=== PATIENT | female | born 1970 | race Caucasian/White ===

== ENCOUNTER → 2018-02-12 10:45 | Outpatient (CLI) | payer MEDICAID, SELFPAY ==
[2018-02-12 12:07] LABS: Thyroid Stimulating Hormone 2.61 uIU/ml (0.358-3.740)
== END ==
PROVIDERS: Family Provider Physician Assistant; PCP Physician Assistant; Visit Provider Obstetrics & Gynecology
DX: L65.9 Nonscarring hair loss, unspecified (principal)
CPT/HCPCS: 36415; 84443

== ENCOUNTER → 2020-07-25 14:26 | Outpatient (CLI) | payer MEDICAID, SELFPAY ==
--- NOTE | 2020-07-25 14:28 | CA_ITS ---
APPROVED REPORT Bilateral Lower Extremity Venous Study for Clinical Operations Manager: CT Indications Lower Extremity Pain: pain and swelling Rest Pain: Left Vein Imaging CFV (R): compressive, spontaneous, phasic, augmentation SFJ (R): compressive, spontaneous, phasic, augmentation FEM (R): compressive, spontaneous, phasic, augmentation POP (R): compressive, spontaneous, phasic, augmentation DFV (R): compressive, spontaneous, phasic, augmentation PTV (R): compressive, spontaneous, phasic, augmentation GSV (R): compressive, spontaneous, phasic, augmentation SSV (R): compressive, spontaneous, phasic, augmentation Peroneals (R):compressive, spontaneous, phasic, augmentation GAS (R): compressive, spontaneous, phasic, augmentation Findings LLE negative for DVT/SVT Vessels compressible Non-vascularized cystic structure visualized in the left popliteal fossa. 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 Electronically signed by : Vasquez Talbert MD 07/25/2020 17:00:38
[2020-07-25 14:59] LABS: Basophils % 0.3 % (0.1-2.0); Eosinophils # 0.2 K/mm3 (0.0-0.4); Eosinophils % 1.5 % (0.1-12.0); Hematocrit 44.1 % (37.0-47.0); Hemoglobin 14.4 g/dL (12.2-16.2); Lymphocytes # 2.5 K/mm3 (0.7-4.5); Lymphocytes % 24.8 % (10-50); Mean Corpuscular HGB Conc 32.6 g/dL (31.8-35.4); Mean Corpuscular Hemoglobin 27.1 pg (27.0-31.2); Mean Corpuscular Volume 83.1 fl (81-99); Mean Platelet Volume 7.5 fl (7.4-10.4); Monocytes # 0.6 K/mm3 (0.1-1.0); Monocytes % 5.9 % (1.7-9.3); Neutrophils # 6.8 K/mm3 (1.8-7.8); Neutrophils % 67.6 % (37.0-80.0); Platelet Count 440 K/mm3 (142-424); Red Blood Count 5.31 M/mm3 (4.20-5.40); Red Cell Distribution Width 16.4 % (11.5-17.5); White Blood Count 10.1 K/mm3 (4.8-10.8)
[2020-07-25 15:24] LABS: Chloride 102 mmol/L (98-107); Sodium 140 mmol/L (136-145)
[2020-07-25 15:25] LABS: Potassium 3.9 mmoL/L (3.5-5.1)
[2020-07-25 15:27] LABS: Alanine Aminotransferase 30 U/L (12-78); Albumin Level 4.3 g/dl (3.5-5.0); Albumin/Globulin Ratio 1.5 (1.1-1.8); Alkaline Phosphatase 90 U/L (38-126); Anion Gap 13.9 mEq/L (5-15); Aspartate Amino Transferase 34 U/L (14-36); Bilirubin,Total 0.5 mg/dl (0.2-1.3); Blood Urea Nitrogen 10 mg/dl (7-17); Carbon Dioxide 28 mmol/L (22.0-30.0); Estimated Glomerular Filt Rate 106 ml/min (>60); GFR (African American) 128 ML/MIN (>60); Globulin 2.9 g/dL (1.3-3.2); Total Protein,Serum 7.2 g/dl (6.3-8.2)
[2020-07-25 15:28] LABS: Calcium 9.8 mg/dl (8.4-10.2); Glucose 112 mg/dl (74-100)
[2020-07-25 15:33] LABS: C-Reactive Protein 9.3 mg/L (0-4)
[2020-07-25 15:40] LABS: Erythrocyte Sedimentation Rate 35 mm/hr (0-20)
[2020-07-27 16:35] LABS: Anti-Centromere B Antibodies <0.2 AI (0.0-0.9); Anti-Jo-1 <0.2 AI (0.0-0.9); Anti-Smith Antibody <0.2 AI (0.0-0.9); Antichromatin Antibodies <0.2 AI (0.0-0.9); Antiscleroderma-70 Antibodies <0.2 AI (0.0-0.9); RNP Antibodies >8.0 AI (0.0-0.9); Sjogren's Anti-SS-A <0.2 AI (0.0-0.9); Sjogren's Anti-SS-B <0.2 AI (0.0-0.9)
[2020-07-28 18:14] LABS: Anti-DNA (DS) Ab Qn <1 IU/mL (0-9); RA Latex Turbid. <10.0 IU/mL (0.0-13.9)
[2020-07-28 18:18] LABS: Anti-Cyclic Citrullinated Pept 3 units (0-19)
== END ==
PROVIDERS: PCP Physician Assistant; Visit Provider Physician Assistant
DX: M79.605 Pain in left leg (principal); M79.89 Other specified soft tissue disorders; M25.50 Pain in unspecified joint
CPT/HCPCS: 36415; 80053; 85025; 85651; 86140; 86200; 86225; 86235; 86431; 86618; 93971

== ENCOUNTER 2021-06-18 18:53 | Emergency (ER) | payer MEDICAID, SELFPAY ==
[2021-06-18 19:45] VITALS: BP 120/91; PULSE 102; RESP 20; TEMP 36.6; O2SAT 98; BMI 43.1
--- NOTE | 2021-06-18 20:17 | HMH.EDUTC ---
[facility] [place] Clinical Impression: Right hip pain, Piriformis syndrome of right side Low back pain Qualifiers: Chronicity: acute Back pain laterality: right Sciatica presence: with sciatica Sciatica laterality: sciatica of right side Qualified Code(s): M54.41 - Lumbago with sciatica, right side Disposition: Home, Self-Care Condition on Discharge: Good Additional Instructions: Go home and rest. It would be best if you rested tomorrow too. No heavy lifting. No twisting. Take the oral medications as directed. The muscle relaxer (cyclobenzaprine) will make you drowsy, so don't drive or operate heavy machinery after taking it. Don't start the oral steroids (medrol dose pack) until tomorrow, since you had the shots in here today. Follow up with your regular doctor. GO TO THE ER FOR ANY WORSENING SYMPTOMS OR CONCERN, ESPECIALLY BOWEL OR BLADDER ISSUES, SADDLE AREA NUMBNESS, FEVER, ETC Prescriptions: Mupirocin [Bactroban 2% Ointment 22gm tube] 1 applicatio TP TID 7 Days #1 tube Transmission Status: Received by [facility] Cyclobenzaprine HCl [Cyclobenzaprine 10mg Tab] 10 mg PO BIDP PRN #30 tab PRN Reason: Muscle Spasm Transmission Status: Received by [facility] methylPREDNISolone [Medrol] 4 mg PO DIRECTED 6 Days #21 tab.ds.pk Transmission Status: Received by [facility] Referrals: Consuelo Wyatt PA [Primary Care Provider] - Time of Disposition: 20:44 Medical Decision Making - Medical Records Medical records reviewed: No: I reviewed the patient's medical records. - Boubacar Inquiry Pt receiving controlled substance: No Vital Signs: 06/18/21 19:45 06/18/21 20:45 Temperature 97.9 F 97.9 F Temperature Source Oral Pulse Rate 102 H Pulse Rate [Right Brachial] 102 H Respiratory Rate 20 20 Blood Pressure 120/91 H Blood Pressure [Right Arm] 120/91 H Blood Pressure Mean [Right Arm] 100 Blood Pressure Source [Right Arm] Automatic Cuff Blood Pressure Position [Right Arm] Sitting 02 Sat by Pulse Oximetry 98 Oxygen Delivery Method Room Air Orders (Tests/Meds): ED MEDICATIONS Discontinued Medications Generic Name Dose Route Start Last Admin Trade Name Jason PRN Reason Stop Dose Admin Ketorolac Tromethamine 60 mg 06/18/21 20:21 06/18/21 20:37 Ketorolac 60mg/2ml Vial IM 06/18/21 20:22 60 mg ONCE ONE Administration Methylprednisolone Sodium Succinate 125 mg 06/18/21 20:21 06/18/21 20:37 Methylprednisolone Sod Succ 125mg Vial IM 06/18/21 20:22 125 mg ONCE ONE Administration [facility] [place] - General Stated complaint: R hip and leg pain Time Seen by Provider: 06/18/21 20:19 Mode of Arrival: Ambulatory Source of Information: Patient Limitations: No Limitations Description of Symptoms (Recalled from Triage Doc. by RN): PATIENT C/O RIGHT HIP PAIN AND NUMBNESS THAT RADIATES FROM SIDE TO FRONT AND DOWN LEG SINCE THURSDAY. NO KNOWN INJURY HEENT Symptoms (Recalled from RN notes): No Resp Symptoms (Recalled from RN notes): No Skin Symptoms (Recalled from RN notes): No MS Symptoms (Recalled from RN notes): Yes Functional Status (Recalled from RN notes): WNL - History of Present Illness Provider Complaint: She c/o right lower back pain that radiates down her right leg. She denies any injury other than she had to pull really hard on her mother's wheel chair right before her symptoms began last week. - Related Data Previous Rx's Medication Instructions Recorded Cyclobenzaprine HCl 10 mg PO BIDP PRN #30 tab 06/18/21 [Cyclobenzaprine 10mg Tab] Mupirocin [Bactroban 2% Ointment 1 applicatio TP TID 7 Days #1 tube 06/18/21 22gm tube] methylPREDNISolone [Medrol] 4 mg PO DIRECTED 6 Days #21 06/18/21 tab.ds.pk Allergies Allergy/AdvReac Type Severity Reaction Status Date / Time codeine [CODEINE] Allergy Intermediate NA-NAUSEA/V Verified 08/09/20 15:12 OMITING meloxicam [MELOXICAM] Aller
[2021-06-18 20:45] VITALS: BP 120/91; PULSE 102; RESP 20; TEMP 36.6; O2SAT 98
== END 2021-06-18 20:48 | disposition home or self-care (01) ==
PROVIDERS: Emergency Provider Nurse Practitioner Family; PCP Physician Assistant
DX: G57.01 Lesion of sciatic nerve, right lower limb (principal); M54.41 Lumbago with sciatica, right side; J45.909 Unspecified asthma, uncomplicated; F17.210 Nicotine dependence, cigarettes, uncomplicated
CPT/HCPCS: 96372; 99202; G0463

== ENCOUNTER 2021-09-16 10:20 | Emergency (ER) | payer MEDICAID, SELFPAY ==
[2021-09-16 10:31] VITALS: BP 124/76; PULSE 97; RESP 20; O2SAT 100; BMI 42.0
[2021-09-16 11:00] VITALS: BP 0/0; PULSE 0; RESP 0; TEMP -17.7; TEMP 0
== END 2021-09-16 11:05 | disposition left against medical advice (07) ==
LOC: UTC 10:30
PROVIDERS: Emergency Provider Nurse Practitioner; PCP Physician Assistant
DX: Z53.21 Procedure and treatment not carried out due to patient leaving prior to being seen by health care provider (principal)

== ENCOUNTER 2021-09-18 14:12 | Emergency (ER) | payer MEDICAID, SELFPAY ==
--- NOTE | 2021-09-18 14:24 | US_ITS ---
PROCEDURE: US EXTREMITY LT LIMITED CLINICAL INDICATION: knee swelling COMPARISON: No exams were available for comparison FINDINGS: There is a medium-sized suprapatellar effusion measuring up to 5 cm longitudinal, 4 cm transverse and 2 cm in thickness. A small to medium-sized baumann cyst is also noted measuring approximately 5 x 3 cm. IMPRESSION: Suprapatellar effusion along with popliteal fossa cyst/Baumann's cyst Dictated by: Vasquez Talbert MD 09/18/2021 16:32 Vasquez Talbert MD in [place] 09/18/2021 16:32
--- NOTE | 2021-09-18 14:25 | XR_ITS ---
PROCEDURE: XR KNEE LT 2V CLINICAL INDICATION: knee swelling, pain Left knee pain and swelling COMPARISON: No exams were available for comparison FINDINGS: No fracture or dislocation. No lytic or blastic change. There is normal mineralization. There are minimal osteoarthritic changes of the medial compartment and patellofemoral joint with minimal spurring with slight decrease in the joint space medially.. Increased density is present in the suprapatellar region consistent with knee joint effusion. Other findings:None. IMPRESSION: Minimal osteoarthritic change with moderate-sized suprapatellar effusion Dictated by: Vasquez Talbert MD 09/18/2021 15:07 Vasquez Talbert MD in [place] 09/18/2021 15:07
[2021-09-18 14:32] VITALS: BP 114/56; PULSE 116; RESP 18; TEMP 36.6; O2SAT 99; BMI 42.0
--- NOTE | 2021-09-18 14:45 | PC.NURSE ---
Pt going to RAD.
--- NOTE | 2021-09-18 14:56 | PC.NURSE ---
Pt is at .
--- NOTE | 2021-09-18 15:37 | PC.NURSE ---
pt return from radiology
[2021-09-18 15:39] VITALS: BP 84/66; PULSE 112; RESP 20; O2SAT 99
--- NOTE | 2021-09-18 15:57 | PC.NURSE ---
Spoke with toi from lab to get CBC, CMP
--- NOTE | 2021-09-18 15:57 | PC.NURSE ---
Called pharmacy to get oxycodone medication sent down.
[2021-09-18 16:37] LABS: Basophils # 0.1 K/mm3 (0-0.2); Basophils % 0.3 % (0.1-2.0); Eosinophils # 0.2 K/mm3 (0.0-0.4); Hemoglobin 12.6 g/dL (12.2-16.2); Lymphocytes # 1.2 K/mm3 (0.7-4.5); Lymphocytes % 6.5 % (10-50); Mean Corpuscular HGB Conc 33.1 g/dL (31.8-35.4); Mean Corpuscular Hemoglobin 26.1 pg (27.0-31.2); Mean Corpuscular Volume 78.8 fl (81-99); Mean Platelet Volume 8.2 fl (7.4-10.4); Monocytes # 0.8 K/mm3 (0.1-1.0); Monocytes % 4.5 % (1.7-9.3); Neutrophils # 16.2 K/mm3 (1.8-7.8); Neutrophils % 87.7 % (37.0-80.0); Platelet Count 555 K/mm3 (142-424); Red Blood Count 4.82 M/mm3 (4.20-5.40); Red Cell Distribution Width 17.1 % (11.5-17.5); White Blood Count 18.5 K/mm3 (4.8-10.8)
[2021-09-18 16:39] LABS: MANUAL DIFFERENTIAL MANUAL DIFFERENTIAL (MANUAL DIFF)
[2021-09-18 16:54] LABS: Alanine Aminotransferase 26 U/L (12-78); Albumin/Globulin Ratio 1.1 (1.1-1.8); Alkaline Phosphatase 99 U/L (38-126); Anion Gap 10.8 mEq/L (5-15); Aspartate Amino Transferase 39 U/L (14-36); Bilirubin,Total 0.3 mg/dl (0.2-1.3); Blood Urea Nitrogen 9 mg/dl (7-17); Calcium 9.7 mg/dl (8.4-10.2); Carbon Dioxide 32 mmol/L (22.0-30.0); Chloride 99 mmol/L (98-107); Creatinine Clearance Estimated 132 mL/min (50-200); Estimated Glomerular Filt Rate 168 ml/min (>60); GFR (African American) 204 ML/MIN (>60); Globulin 3.8 g/dL (1.3-3.2); Glucose 100 mg/dl (74-100); Potassium 3.8 mmoL/L (3.5-5.1); Sodium 138 mmol/L (136-145); Total Protein,Serum 7.8 g/dl (6.3-8.2)
[2021-09-18 16:55] LABS: Lymphocytes % 5 % (10-50); Microcytosis 1+; Monocytes % 5 % (2-9); Neutrophils % 90 % (42-76); Platelet Estimate Slight Increase; Spherocytes 2+; Total Cells Counted 100
[2021-09-18 17:00] LABS: C-Reactive Protein 201.5 mg/L (0-4)
[2021-09-18 17:04] LABS: Erythrocyte Sedimentation Rate 38 mm/hr (0-30)
--- NOTE | 2021-09-18 17:32 | PC.NURSE ---
called [facility] for transfer
--- NOTE | 2021-09-18 17:53 | PC.NURSE ---
Dr Elise speaking with Dr Majano.
--- NOTE | 2021-09-18 18:02 | PC.NURSE ---
Dr Majano admitting pt to [facility]
[2021-09-18 18:25] VITALS: BP 96/66; PULSE 102; RESP 18; O2SAT 99
--- NOTE | 2021-09-18 18:33 | HMH.EDGENADL ---
ED Disposition Clinical Impression: Septic joint of left knee joint Disposition: Xfer Short-Term Hosp Condition on Discharge: Good Referrals: Carissa Huber APRN [Primary Care Provider] - Forms: Transfer Record - ED Time of Disposition: 18:25 - Critical Care Critical Care Time: Yes (septic knee) Attestation: On 09/18/21, the high probability of a clinically significant, sudden or life threatening deterioration of the following system(s) required my full and direct attention, intervention and personal management. The time I documented below is in addition to time spent performing reported procedures but includes the following listed in this critical care notation. Vital system(s) involved:: Circulatory Failure, Shock (Septic) My critical care processes included: Assessment & monitoring of V/S, Initial and Re-exams, Data Review/Interpretation Medical Decision Making - Boubacar Inquiry Pt receiving controlled substance: No Vital Signs: 09/18/21 14:32 09/18/21 15:39 09/18/21 18:25 Temperature 97.9 F Temperature Source Oral Pulse Rate 112 H 102 H Pulse Rate [Right Radial] 116 H Respiratory Rate 18 20 18 Blood Pressure 84/66 L 96/66 L Blood Pressure [Right Arm] 114/56 L Blood Pressure Mean [Right Arm] 75 Blood Pressure Source Blood Pressure Source [Right Arm] Manual Cuff/ Doppler Blood Pressure Position Blood Pressure Position [Right Arm] Sitting 02 Sat by Pulse Oximetry 99 99 99 Oxygen Delivery Method Room Air 09/18/21 19:00 09/18/21 19:37 Temperature 98.2 F 98.2 F Temperature Source Oral Oral Pulse Rate 113 H 113 H Pulse Rate [Right Radial] Respiratory Rate 18 18 Blood Pressure 124/57 L 142/77 H Blood Pressure [Right Arm] Blood Pressure Mean [Right Arm] Blood Pressure Source Automatic Cuff Automatic Cuff Blood Pressure Source [Right Arm] Blood Pressure Position Supine Sitting Blood Pressure Position [Right Arm] 02 Sat by Pulse Oximetry 97 Oxygen Delivery Method Room Air Room Air - Lab Data Lab Results 09/18/21 16:28: WBC 18.5 H, RBC 4.82, Hgb 12.6, Hct 38.0, MCV 78.8 L, MCH 26.1 L, MCHC 33.1, RDW 17.1, Plt Count 555 H, MPV 8.2, Neut % (Auto) 87.7 H, Lymph % (Auto) 6.5 L, [place] % (Auto) 4.5, Eos % (Auto) 1.0, Baso % (Auto) 0.3, Neut # (Auto) 16.2 H, Lymph # (Auto) 1.2, [place] # (Auto) 0.8, Eos # (Auto) 0.2, Baso # (Auto) 0.1, Total Counted 100, Neutrophils % (Manual) 90 H, Lymphocytes % (Manual) 5 L, Monocytes % (Manual) 5, Platelet Estimate Slight increase, Microcytosis 1+, Spherocytes 2+, ESR 38 H 09/18/21 16:28: Sodium 138, Potassium 3.8, Chloride 99, Carbon Dioxide 32 H, Anion Gap 10.8, BUN 9, Creatinine 0.40 L, Estimated Creat Clear 132, Estimated GFR 168, Est GFR ( Amer) 204, Glucose 100, Calcium 9.7, Total Bilirubin 0.3, AST 39 H, ALT 26, Alkaline Phosphatase 99, C-Reactive Protein 201.5 H, Total Protein 7.8, Albumin 4.0, Globulin 3.8 H, Albumin/Globulin Ratio 1.1 Result diagrams: 09/18/21 16:28 09/18/21 16:28 Orders (Tests/Meds): ED MEDICATIONS Discontinued Medications Generic Name Dose Route Start Last Admin Trade Name Freq PRN Reason Stop Dose Admin Morphine Sulfate 4 mg 09/18/21 18:01 Morphine 4mg/Ml Syringe IV 10/18/21 18:00 Q2HP PRN Breakthru Mild Pain Oxycodone HCl 10 mg 09/18/21 16:00 09/18/21 16:00 Oxycodone 5mg Immediate Release Tablet PO 09/18/21 16:01 10 mg ONCE ONE Administration Oxycodone/Acetaminophen 1 each 09/18/21 18:48 09/18/21 18:52 Oxycodone 10mg W/Apap 325mg Tablet PO 09/18/21 18:49 1 each ONCE ONE Administration Medical Decision Narrative: Mrs. Xiong is a 50-year-old female with past medical history for IV drug use and left knee bursitis who presents to the emergency department with acute onset swelling of her left knee. Patient is afebrile and hemodynamically stable on arrival, nontoxic-appearing. Physical exam remarkable for significant swelling of the left knee, limited rang
[2021-09-18 19:00] VITALS: BP 124/57; PULSE 113; RESP 18; TEMP 36.8; O2SAT 97
--- NOTE | 2021-09-18 19:01 | PC.NURSE ---
Called report into karishma S[facility] at [facility].
[2021-09-18 19:37] VITALS: BP 142/77; PULSE 113; RESP 18; TEMP 36.8; O2SAT 97
== END 2021-09-18 19:37 | disposition short-term general hospital (02) ==
PROVIDERS: Emergency Provider Student in an Organized Health Care Education/Training Program; PCP Nurse Practitioner Family
DX: M00.862 Arthritis due to other bacteria, left knee (principal); B96.89 Other specified bacterial agents as the cause of diseases classified elsewhere; J45.909 Unspecified asthma, uncomplicated; F17.210 Nicotine dependence, cigarettes, uncomplicated; Z88.2 Allergy status to sulfonamides
CPT/HCPCS: 36415; 73560; 76882; 80053; 85007; 85025; 85651; 86140; 99284

== ENCOUNTER → 2021-11-13 13:19 | Outpatient (CLI) | payer MEDICAID, SELFPAY | PROVIDERS: PCP Physician Assistant; Visit Provider Nurse Practitioner | DX: U07.1 COVID-19 (principal) | CPT/HCPCS: C9803; U0003; U0005 ==

== ENCOUNTER → 2022-05-30 08:31 | Outpatient (CLI) | payer MEDICAID, SELFPAY ==
--- NOTE | 2022-05-30 08:40 | XR_ITS ---
FINAL REPORT CLINICAL HISTORY: suspect advanced oa FINDINGS: RIGHT HIP Two views of the right hip including an AP pelvis demonstrate no acute fracture or dislocation. There is mild degenerative change of the right hip and moderate degenerative change in the lower lumbar spine. There is also degenerative change of the SI joints. The visualized bony structures are well aligned. No soft tissue abnormality is seen. IMPRESSION: Degenerative changes described. Reviewed, Interpreted and Dictated by Pb Hanccok III, MD Transcribed by Brittny Galvez Authenticated and [facility]
== END ==
PROVIDERS: PCP Family Medicine; Visit Provider Family Medicine
DX: M25.551 Pain in right hip (principal)
CPT/HCPCS: 73502

== ENCOUNTER → 2022-09-15 15:10 | Outpatient (CLI) | payer MEDICAID, SELFPAY ==
--- NOTE | 2022-09-15 15:11 | MR_ITS ---
FINAL REPORT CLINICAL HISTORY: right hip and groin pain. locking in right hip. symptoms 4-5months. no injury or trauma. FINDINGS: Multiplanar MR imaging of the right hip was performed without contrast. There is no evidence of fracture or dislocation. There is significant right hip joint space narrowing. Marrow edema is seen throughout the right acetabulum with asymmetric hypertrophic changes at the right acetabular margin. There osteochondral lesions of the femoral head. There is no evidence of avascular necrosis the acetabular labrum is not well visualized. Abductor tendons are intact. No significant joint effusion is seen. The musculature is intact. No soft tissue mass or cyst is identified. IMPRESSION: Findings consistent with right hip osteoarthritis. Reviewed, Interpreted and Dictated by Honorio Hernandez MD Transcribed by Rupa Ponce Authenticated and [facility]
== END ==
PROVIDERS: PCP Family Medicine; Visit Provider Family Medicine
DX: M25.551 Pain in right hip (principal)
CPT/HCPCS: 73721

== ENCOUNTER → 2022-11-17 10:51 | Outpatient (POV) | payer MEDICAID, SELFPAY ==
[2022-11-17 10:57] VITALS: BP 133/73; PULSE 109; RESP 18; O2SAT 98; BMI 45.7
--- NOTE | 2022-11-17 11:03 | EXP.PAIN.OV ---
HPI Data of Consult Patient: new to practice Consult date: 11/17/22 Requesting Physician: Maya Polo APRN Consult Narrative Reason for consult: Low back pain, right hip pain History of present illness: Ms. Xiong is a 51 year old female who presents today as a new patient. She is referral from Dr. Polo's office. Today the patient rates her pain a 5 out of 10. Patient states the pain is all in her low back and right hip. Patient states this did start approximately January 2022 and has worsened since. Patient denies any specific injury or trauma. Patient states that she was given oral steroids which did help her pain symptoms of her right hip but then following is when she noticed her back pain. Patient does describe this as a deep sharp achy sensation that is worse with increased activity. Patient states that she does have problems performing activities of daily living such as walking, cooking, cleaning due to the pain. Patient states she does have continued pain in her right hip, groin and thigh and describes it as a locking sensation that is worse with prolonged sitting, standing, walking. Patient does use a cane for ambulation. Patient does take ibuprofen as well as Flexeril prescribed from her primary care doctor. Patient states this does help some. Patient is also tried IcyHot and lidocaine patches with minimal improvement. Patient initially did use heat and ice however over time these became less effective. Patient states she frequently has to adjust her positioning to provide improvement of her symptoms. Patient denies any physical therapy or chiropractor in the past. Patient states that she did have a previous episode of prescription drug use and that she did get clean. Patient does not want any narcotics. Patient also states she does have a history of RA. Her Boubacar is [id number]. Its been reviewed and appropriate. CC: Maya Polo APRN [facility] Disclaimer: The information contained in this section may have been updated after the patient was seen, as this information can be updated by other users. Medical History Abnormal vaginal bleeding Carpal tunnel syndrome History of drug abuse Hot flashes Leaking of urine Surgical History H/O exploratory laparotomy 2006 H/O right knee surgery 2003 History of anterior colporrhaphy 2017 History of appendectomy 2007 History of carpal tunnel release Bilateral-2001 History of cholecystectomy 1986 History of low transverse section 1988 History of pubovaginal sling 2006 History of salpingo-oophorectomy Right-2006 Left-2007 History of stress incontinence procedure using tension free vaginal tape 2006 History of total vaginal hysterectomy (TVH) 2000 History of tubal ligation tubal 1991 Family History Other Diabetes Heart attack Hyperlipidemia Hypertension Stroke Substance abuse Thyroid disorder Social History Smoking Status: Current every day smoker tobacco type: e-cigarettes alcohol intake: never substance use type: former substance user current occupational status: other Travel in the last 8 weeks: None Review of Systems Review of Systems Review of systems:: pertinent systems reviewed and negative unless documented below Review of systems (narrative): Review of Systems: General: No recent weight changes, no fever, no sleep disturbances Respiratory: No cough, no shortness of air, no recurring pulmonary infections Cardiovascular/peripheral vascular: No chest pain, no palpitations, no edema, no shortness of breath Gastrointestinal: No new onset incontinence, normal bowel movements reported Genitourinary: No new onset incontinence Musculoskeletal: Low back pain, right hip pain Psychiatric: [Normal moo
== END ==
PROVIDERS: Visit Provider Nurse Practitioner Family
DX: M54.16 Radiculopathy, lumbar region (principal); M54.41 Lumbago with sciatica, right side; M25.551 Pain in right hip
CPT/HCPCS: 99202; G0463

== ENCOUNTER 2022-11-25 10:23 | Day surgery (SDC) | payer MEDICAID, SELFPAY ==
[2022-11-25 10:48] VITALS: BP 109/81; PULSE 100; RESP 18; TEMP 36.2; O2SAT 97; BMI 51.2
[2022-11-25 11:10] VITALS: BP 149/57; PULSE 95; RESP 18; O2SAT 98
[2022-11-25 11:11] VITALS: BP 149/57; PULSE 95; RESP 18; O2SAT 98
--- NOTE | 2022-11-25 11:14 | P.PCN_ITS ---
Procedure Date: 11/25/22 Time: 11:14 Anesthesiologist:: Ankur Vaca CRNA Complications:: None Pre-procedure Diagnosis:: Low back pain, lumbar radiculopathy symptoms, right hip pain, history of sciatic issues Post-procedure Diagnosis:: Same Indications for Procedure:: Patient is a pleasant 51-year-old female who presents today for a right intra- articular hip injection. She rates her pain today a 5 out of 10. Patient denies any new trauma or injury. Patient denies any change to location or type of pain she experiences. Patient does use ibuprofen and Flexeril to provide additional relief. Patient does use a cane for ambulation. General: Alert and oriented x3, no acute distress, pleasant and cooperative Lungs: Respiration even unlabored, symmetrical chest expansion Eyes: PERRL Musculoskeletal: Flexion and extension of lumbar spine somewhat guarded secondary to pain, antalgic gait noted Neurological: Speech clear, no gross sensory deficit Procedure Details:: Details of the procedure were explained to the patient. The patient was taken to procedure room placed in the supine position. The area over the right hip was cleaned using chlorhexidine as a cleansing solution. Using fluoroscopy guidance a 3 and half inch 22-gauge spinal needle was used to access the right hip joint without difficulty. After negative aspiration 3 cc of 1% lidocaine +3 cc of 0.25% Marcaine and 40 mg of Depo-Medrol was injected. Needle was w ithdrawn. Band-Aid applied. Patient tolerated procedure without difficulty. There are no complications. Plan and Disposition:: Patient will return to clinic in 2 weeks for reevaluation of symptoms and follow-up. Patient has been instructed to contact the clinic with any questions or concerns before the next appointment date. Dr. Shin has read this note and agrees with this plan of care. This note was dictated using voice recognition software and may contain errors or omissions.
[2022-11-25 11:15] VITALS: BP 146/79; PULSE 101; RESP 18; O2SAT 97
== END 2022-11-25 11:15 | disposition home or self-care (01) ==
PROVIDERS: PCP Family Medicine; Visit Provider Nurse Anesthetist, Certified Registered
DX: M54.50 Low back pain, unspecified (principal); M54.16 Radiculopathy, lumbar region; M25.551 Pain in right hip
CPT/HCPCS: 20610; 77002; J1040

== ENCOUNTER → 2022-12-10 09:40 | Outpatient (POV) | payer MEDICAID, SELFPAY ==
--- NOTE | 2022-12-10 09:57 | EXP.PAIN.SOA ---
[facility] Pain Management SOAP Note Subjective:: RightPatient is a pleasant 52-year-old female who presents today for follow-up of intra-articular hip injection on 11/25/2022. We are currently treating the patient for low back pain with lumbar radiculopathy symptoms, right hip pain, right sacroiliitis. Today she states that her prior injection did not help at all. Patient states she continues to have significant pain in her low back as well as her right upper leg. Patient states it will frequently lock up on her and cause difficulty walking. Patient's pain did start around January 2022 and has worsened since.? Today she rates her pain a 6 out of 10. Patient denies any new trauma or injury. Patient denies any change to the location or type of pain she experiences. Patient does describe this as a deep sharp achy sensation that is worse with increased activity.? Patient states that she does have problems performing activities of daily living such as walking, cooking, cleaning due to the pain.? Patient states she does have continued pain in her right hip, groin and thigh and describes it as a locking sensation that is worse with prolonged sitting, standing, walking.? Patient states she frequently notices this more when even going to the bathroom and sitting on the commode. Patient continues to use a cane for ambulation.? At our last visit patient was scheduled to have a x-ray of her lumbar spine however she states she has misplaced the order and is requesting a new one at today's visit. Patient manages her pain symptoms with ibuprofen and Flexeril prescribed from her primary care doctor.? Patient states this does help some.? Patient has tried anfl-iyn-hiublxf topicals and heat and ice with minimal improvement.? Patient was recently started on hormone replacement therapy and is managed with Sublocade 100 mg from Melina Mariscal's office. Her Boubacar is [id number]. Its been reviewed and appropriate. Review of Systems: General: No recent weight changes, no fever, no sleep disturbances Respiratory: No cough, no shortness of air, no recurring pulmonary infections Cardiovascular/peripheral vascular: No chest pain, no palpitations, no edema, no shortness of breath Gastrointestinal: No new onset incontinence, normal bowel movements reported Genitourinary: No new onset incontinence Musculoskeletal: Low back pain, right leg pain Psychiatric: [Normal mood/affect] Neurological: [Denies weakness in extremities], [denies balance issues] Objective:: Physical Exam: General: Alert and oriented x3, no acute distress, pleasant and cooperative Lungs: Respirations even and unlabored, symmetrical chest expansion Eyes: PERRL Musculoskeletal: Flexion and extension of lumbar [spine] somewhat guarded secondary to pain, [antalgic gait noted] Neurological: Speech clear, no gross sensory deficit Assessment:: Low back pain with lumbar radiculopathy symptoms, right hip pain, right sacroiliitis Plan:: Patient continues to experience significant pain in her low back with radiating symptoms into her right leg. Patient did have limited range of motion of her lumbar spine during today's visit. I will send a new order for an x-ray of her lumbar spine with the plan to order advanced imaging following such as a MRI or CT. Patient will follow-up back in clinic in 1 week for reevaluation of symptoms and plan of care. Patient has been instructed to contact the clinic with any concerns before the next appointment. Dr. Shin has reviewed this note and agrees with this plan of care. This note was dictated using voice recognition software and make contain errors or omissions. [facility] Disclaimer: The information contained in this section may have been updated after the patient was seen, as this information can be updated by other users. Medical History Abnormal vaginal bleeding Carpal tunnel syndrome History of drug abuse Hot flashes Leaking of urine Raman
[2022-12-10 10:38] VITALS: BP 121/30; PULSE 103; RESP 18; O2SAT 97; BMI 47.5
== END ==
PROVIDERS: PCP Family Medicine; Visit Provider Nurse Practitioner Family
DX: M54.16 Radiculopathy, lumbar region (principal); M54.50 Low back pain, unspecified; M46.1 Sacroiliitis, not elsewhere classified; M25.551 Pain in right hip
CPT/HCPCS: 99212; G0463

== ENCOUNTER → 2022-12-16 13:17 | Outpatient (CLI) | payer MEDICAID, SELFPAY ==
--- NOTE | 2022-12-16 13:21 | XR_ITS ---
FINAL REPORT CLINICAL HISTORY: LOW BACK PAIN FINDINGS: LUMBAR SPINE Five views demonstrate no acute fracture. The exam is under penetrated. The disc spaces are well preserved. There is no malalignment. IMPRESSION: No acute process. Reviewed, Interpreted and Dictated by Honorio Hernandez MD Transcribed by Reema Bhagat Authenticated and [facility]
== END ==
PROVIDERS: PCP Family Medicine; Visit Provider Nurse Practitioner Family
DX: M54.50 Low back pain, unspecified (principal)
CPT/HCPCS: 72110

== ENCOUNTER → 2022-12-18 08:46 | Outpatient (POV) | payer MEDICAID, SELFPAY ==
[2022-12-18 08:55] VITALS: BP 146/74; PULSE 101; RESP 20; O2SAT 98; BMI 51.2
--- NOTE | 2022-12-18 09:00 | EXP.PAIN.SOA ---
[facility] Pain Management SOAP Note Subjective:: Patient is a pleasant 52-year-old female who presents today for follow-up of lumbar x-ray. We are currently treating the patient for low back pain with lumbar radiculopathy symptoms, right hip pain, right sacroiliitis. Today she rates her pain a 4 out of 10. Patient denies any new trauma or injury. Patient denies any change to location or type of pain she experiences. Patient continues to state her pain is primarily in her low back with radiating symptoms to her right upper leg. She continues to experience episodes of locking up that causes significant difficulty walking. Patient states this has been going on for almost 1 year. Patient does use a cane for additional ambulation help. Patient does describe this as a deep sharp, achy sensation that is worse with increased activities. Patient states it does interfere with her ability to perform activities of daily living such as walking, cooking, cleaning. Patient states she does have to frequently take multiple breaks in order to get some relief of her pain symptoms. Patient is on hormone replacement therapy. She is prescribed sublocade from an outside provider. Her [place] is [id number]. Its been reviewed and appropriate. Review of Systems: General: No recent weight changes, no fever, no sleep disturbances Respiratory: No cough, no shortness of air, no recurring pulmonary infections Cardiovascular/peripheral vascular: No chest pain, no palpitations, no edema, no shortness of breath Gastrointestinal: No new onset incontinence, normal bowel movements reported Genitourinary: No new onset incontinence Musculoskeletal: Low back pain, leg pain Psychiatric: [Normal mood/affect] Neurological: [Denies weakness in extremities], [denies balance issues] Objective:: Physical Exam: General: Alert and oriented x3, no acute distress, pleasant and cooperative Lungs: Respirations even and unlabored, symmetrical chest expansion Eyes: PERRL Musculoskeletal: Flexion and extension of lumbar [spine] somewhat guarded secondary to pain, [antalgic gait noted] Neurological: Speech clear, no gross sensory deficit [facility] X-ray lumbar spine 12/16/2022 Findings: No acute fractures, no dislocations, no acute process. Assessment:: Low back pain with lumbar radiculopathy symptoms, right hip pain, right sacroiliitis Plan:: Patient continues to experience significant pain in her low back with radiating symptoms into her leg. Patient did have limited range of motion of her lumbar spine during today's visit. Will order the patient an MRI without contrast of her lumbar spine at today's visit. Patient will return to clinic following this imaging for reevaluation of symptoms and follow-up. Patient has been instructed to contact the clinic with any concerns before the next appointment. Dr. Shin has reviewed this note and agrees with this plan of care. This note was dictated using voice recognition software and make contain errors or omissions. [facility] Disclaimer: The information contained in this section may have been updated after the patient was seen, as this information can be updated by other users. Medical History Abnormal vaginal bleeding Carpal tunnel syndrome History of drug abuse Hot flashes Leaking of urine Surgical History H/O exploratory laparotomy 2006 H/O right knee surgery 2004 History of anterior colporrhaphy 2017 History of appendectomy 2007 History of carpal tunnel release Bilateral-2000 History of cholecystectomy 1986 History of low transverse section 1988 History of pubovaginal sling 2006 History of salpingo-oophorectomy Right-2006 Left-2007 History of stress incontinence procedure using tension free vaginal tape 2006 History of total vaginal hysterectomy (TVH) 2000 History of tubal ligation Postpartu
== END ==
PROVIDERS: PCP Family Medicine; Visit Provider Nurse Practitioner Family
DX: M54.16 Radiculopathy, lumbar region (principal); M46.1 Sacroiliitis, not elsewhere classified; M25.551 Pain in right hip
CPT/HCPCS: 99212; G0463

== ENCOUNTER → 2023-02-03 09:19 | Outpatient (CLI) | payer MEDICAID, SELFPAY | PROVIDERS: PCP Family Medicine; Visit Provider Nurse Practitioner Family | DX: R07.89 Other chest pain (principal) | CPT/HCPCS: 93270 ==

== ENCOUNTER 2023-02-12 15:49 | Emergency (ER) | payer MEDICAID, SELFPAY ==
[2023-02-12 15:48] VITALS: BP 135/84; PULSE 90; RESP 20; TEMP 36.7; O2SAT 97; BMI 52.9
--- NOTE | 2023-02-12 15:51 | HMH.EDGENADL ---
Discharge Plan Disposition Patient Disposition: Home, Self-Care Prescriptions Prescriptions: New methocarbamol 750 mg tablet 750 mg PO TID 7 Days Qty: 21 0RF No Action Sublocade 100 mg/0.5 mL solution, extended rel syringe 100 mg SQ QMONTH emtricitabine-tenofovir (TDF) 200-300 mg tablet 1 tab PO DAILY potassium chloride 10 mEq capsule, extended release 10 meq PO cyclobenzaprine 10 mg tablet See Rx Instructions .ROUTE .COMPLEX Qty: 60 3RF Dose Instruction: TAKE ONE TABLET BY MOUTH 2 TIMES A DAY Rx Instructions: TAKE ONE TABLET BY MOUTH 2 TIMES A DAY ibuprofen 800 mg tablet See Rx Instructions .ROUTE .COMPLEX Qty: 90 0RF Dose Instruction: TAKE ONE TABLET BY MOUTH EVERY 8 HOURS Rx Instructions: TAKE ONE TABLET BY MOUTH EVERY 8 HOURS torsemide 20 mg tablet 20 mg PO DAILY estradiol 0.01 % (0.1 mg/gram) cream 0.5 g vaginal .twice weekly Rx Instructions: Apply blueberry size amount vaginally twice weekly at bedtime estradiol 1 mg tablet 1 mg PO DAILY Activity Restrictions/Add. Instructions Additional Instructions/Restrictions: If you take the Robaxin that I prescribed please do not take Flexeril with it. Please continue to follow-up with your orthopedic surgeons for continued discussions of your chronic right hip pain and muscular spasms associated with this. Return to the emergency department as needed. Clinical Impressions Clinical Impression: Muscle spasm of right leg Discharge ED Provider: Karishma Baires General Adult HPI General Chief complaint: PAIN Stated complaint: R Hip locked up Time Seen by Provider: 02/12/23 15:51 History of Present Illness HPI narrative: 52-year-old patient with a history of chronic right hip pain for the last several years presents with right leg cramping. She states that she has a history of substance abuse and is on Suboxone and has had extensive work-up of her right hip including an MRI which showed osteoarthritis she has been on Suboxone as well as Flexeril and ibuprofen at home which normally when her leg locks up she is able to loosen out over a period of an hour or so. However last night her leg locked up around midnight and she states that she has not been able to The relaxation since that time. Which prompted her emergency department visit today. No injuries that she is aware of. No fevers or chills. She states the pain starts from her right lateral hip and extends anteriorly into her quadricep area. She took 80 mg of ibuprofen just prior to arrival as well as her Flexeril without any improvement. Related Data Home Medications Medication Instructions Recorded Confirmed buprenorphine 100 mg/0.5 mL 100 mg SQ QMONTH N/A 09/09/22 02/03/23 solution,exten.rel.subcutaneous syringe (Sublocade) emtricitabine 200 mg-tenofovir 1 tab PO DAILY . 09/09/22 02/03/23 disoproxil fumarate 300 mg tablet estradiol 0.01% (0.1 mg/gram) 0.5 g vaginal .twice weekly 11/17/22 02/03/23 vaginal cream SUPPLIMENT torsemide 20 mg tablet 20 mg PO DAILY Fluid 11/17/22 02/03/23 estradiol 1 mg tablet 1 mg PO DAILY hormone replacement 11/25/22 02/03/23 potassium chloride 10 mEq 10 meq PO 02/03/23 02/03/23 capsule,extended release Previous Rx's Medication Instructions Recorded cyclobenzaprine 10 mg tablet See Rx Instructions .Route 12/25/22 .COMPLEX #60 tabs ibuprofen 800 mg tablet See Rx Instructions .Route 01/21/23 .COMPLEX #90 tabs methocarbamol 750 mg tablet 750 mg PO TID muscle spasm 7 days 02/12/23 #21 tabs Allergies Allergy/AdvReac Type Severity Reaction Status Date / Time codeine [CODEINE] Allergy Intermediate NA-NAUSEA/V Verified 02/03/23 08:28 OMITING meloxicam [MELOXICAM] Allergy Intermediate I-RASH Verified 02/03/23 08:28 tramadol [TRAMADOL] Allergy Intermediate I-RASH Verified 02/03/23 08:28 butalbital [BUTALBITAL] Allergy Unknown TACHYCARDIA, Verified 02/03/23 08:28
[2023-02-12 16:01] VITALS: BP 127/42; PULSE 89; O2SAT 96
--- NOTE | 2023-02-12 17:00 | PC.NURSE ---
Re-evaluation of pain. Slight improvement, however still c/o right thigh tightness/pain.
[2023-02-12 17:43] VITALS: BP 129/86; PULSE 86; RESP 17; TEMP 36.7; O2SAT 96
== END 2023-02-12 17:50 | disposition home or self-care (01) ==
PROVIDERS: Emergency Provider Student in an Organized Health Care Education/Training Program; PCP Family Medicine
DX: M25.551 Pain in right hip (principal); M62.838 Other muscle spasm
CPT/HCPCS: 99283; 99284

== ENCOUNTER → 2023-03-09 20:01 | Outpatient (CLI) | payer MEDICAID, SELFPAY | PROVIDERS: PCP Family Medicine; Visit Provider Family Medicine | DX: G47.33 Obstructive sleep apnea (adult) (pediatric) (principal); R09.02 Hypoxemia; R06.83 Snoring | CPT/HCPCS: 95810 ==

== ENCOUNTER → 2023-03-23 07:06 | Outpatient (CLI) | payer MEDICAID, SELFPAY ==
--- NOTE | 2023-03-23 07:06 | NM_ITS ---
APPROVED REPORT Exam: Nuclear Stress Test Indication: soa Patient Location: Outpatient Stress Tech: Gavi Padgett NM Tech:KAIDEN Piña RT (R)(N)(M) Ht: 5 ft 4 in Wt: 320 lbs Bra Size: 42c HR: 82 bpm BP: 132/55 mmHg BSA: 2.39 m2 TID: 1.23 BMI: 54.9 History: SOB Procedure: Patient received 0.4 mg of intravenous Lexiscan, resting heart rate 82 bpm, resting blood pressure 132/55 mmHg, with Lexiscan maximum heart rate achieved was 84 bpm which is 85 % of the maximum predicted heart rate and blood pressure was 123/54 mmHg. With Lexiscan, patient denied any complaint of chest pain. The patient was unable to lay on her abdomen for prone images. Cardiac Stress and Resting SPECT Images: Cardiac Stress and Resting SPECT images were obtained using technetium 99m Myoview 31.6 mCi stress and 10.54 mCi at rest. Technically limited study due to large body habitus and inavailability of prone images, as well as reduced myocardial counts due to significant bowel uptake. These limitations may affect the dignostic capacity of the study. Resting and stress images demonstrate a large, moderate, fixed perfusion defect in the anterior LV wall from the base to the apex. There is also a tapered medium-sized, moderate fixed perfusion along the inferior wall. Gated images demonstrate normal left ventricular global and regional wall motion. Left ventricular ejection fraction is calculated at > 75% Conclusion: Technically limited study due to large body habitus and inavailability of prone images, as well as reduced myocardial counts due to significant bowel uptake. These limitations may affect the dignostic capacity of the study. Fixed perfusion defects present anteriorly and inferiorly in the setting of large body habitus with normal LV global and regional function. Findings are highly suggestive of breast and diaphragmatic attenuation, but this test cannot entirely rule out if defects are due to true prior myocardial infarcts. Gated images demonstrate normal left ventricular global and regional wall motion. Left ventricular ejection fraction is calculated at > 75% Electronically signed by : Awa Figueroa, 03/23/2023 23:31:37
--- NOTE | 2023-03-23 07:06 | CA_ITS ---
APPROVED REPORT Exam: Pharmacologic Technologist: Gavi Padgett Ht: 5 ft 2 in Wt: 289 lbs BSA: 2.24 m2 HR: 82 bpm BP: 132/55 mmHg Indications: Shortness of breath Medical History Medications: Estradiol,,,,, Ibuprofen,,,,, Cyclobenzaprine,,,,, TorSEMIDE,,,,, Potassium,,,,, Sublocade,,,,, Stress Test Details Test: LEXISCAN HR Resting HR: 83 bpm Max Heart Rate (APMHR): 167 bpm Max HR Achieved: 95 bpm Target HR (85% APMHR): 142 bpm % of APMHR: 57 Recovery HR: 89 bpm BP Resting BP: 132.0/55.0 mmHg Max BP: 135.0/57.0 mmHg Recovery BP: 120.0/57.0 mmHg ECG Resting ECG: Normal sinus rhythm Clinical Exercise duration: 04:45 min Highest Stage Achieved: Stress ECG Conclusion Symptoms: None Arrhythmias/Ectopy: Rare PVC ST-T Changes: None Conclusion: no ischemic changes. Test Summary REST . . . . . . . Resting REST 03:33 . . 83 . 132/ 55 . . Stage 1 . . . . . . . Myoview Injected Stage 1 01:00 . . 91 . . . . Stage 2 01:00 . . 85 . . . . Stage 3 01:00 . . 86 . 123/ 54 . . Stage 4 01:00 . . 87 . . . . Stage 4 01:45 . . 92 . 135/ 57 . Stop exercise at 04:45 RECOVERY 01:00 . . 86 . 117/ 62 . . RECOVERY 02:00 . . 83 . 117/ 62 . . RECOVERY 03:00 . . 84 . 120/ 57 . . RECOVERY 03:14 . . 83 . 120/ 57 . . Electronically signed by : Awa Figueroa, 03/23/2023 23:13:56
== END ==
PROVIDERS: PCP Family Medicine; Visit Provider Nurse Practitioner
DX: R06.02 Shortness of breath (principal); R07.89 Other chest pain
CPT/HCPCS: 78452; 93017; A9502; J2785

== ENCOUNTER 2023-05-20 09:55 | Emergency (ER) | payer MEDICAID, SELFPAY ==
[2023-05-20 09:56] VITALS: BP 156/87; PULSE 120; RESP 24; TEMP 36.8; O2SAT 96; BMI 48.4
[2023-05-20 10:15] VITALS: PULSE 118; O2SAT 95
[2023-05-20 10:30] VITALS: BP 156/87; PULSE 109; O2SAT 97
--- NOTE | 2023-05-20 11:11 | PC.NURSE ---
ROUNDED ON PT, NO NEEDS AT THIS TIME. FAMILY AT BEDSIDE
--- NOTE | 2023-05-20 11:12 | HMH.EDGENADL ---
Discharge Plan Disposition Patient Disposition: Home, Self-Care Condition: Good Chief Complaint: PAIN Prescriptions Prescriptions: No Action Sublocade 100 mg/0.5 mL solution, extended rel syringe 100 mg SQ QMONTH emtricitabine-tenofovir (TDF) 200-300 mg tablet 1 tab PO DAILY ibuprofen 800 mg tablet See Rx Instructions .ROUTE .COMPLEX Qty: 90 0RF Dose Instruction: TAKE ONE TABLET BY MOUTH EVERY 8 HOURS Rx Instructions: TAKE ONE TABLET BY MOUTH EVERY 8 HOURS cyclobenzaprine 10 mg tablet 10 mg PO DAILY PRN (Reason: muscle spasm) Qty: 30 1RF diazepam [Valium] 5 mg tablet 5 mg PO BID PRN (Reason: muscle spasm) Qty: 3 0RF potassium chloride 10 mEq capsule, extended release See Rx Instructions .ROUTE .COMPLEX Qty: 30 0RF Dose Instruction: TAKE ONE CAPSULE BY MOUTH ONCE A DAY Rx Instructions: TAKE ONE CAPSULE BY MOUTH ONCE A DAY torsemide 20 mg tablet 20 mg PO DAILY estradiol 0.01 % (0.1 mg/gram) cream 0.5 g vaginal .twice weekly Rx Instructions: Apply blueberry size amount vaginally twice weekly at bedtime estradiol 1 mg tablet 1 mg PO DAILY methocarbamol 750 mg tablet 750 mg PO TID 7 Days Qty: 21 0RF Referrals Follow up/Referrals: Joshua Bernard MD [Primary Care Provider] - See instructions Activity Restrictions/Add. Instructions Additional Instructions/Restrictions: Additional Benadryl [id number] as needed. Follow-up PCP in 1 to 2 days. Return to the ER for difficulty breathing or swallowing Clinical Impressions Clinical Impression: Bites and stings, insect Qualifiers: Encounter type: initial encounter Qualified Code(s): W57.XXXA - Bitten or stung by nonvenomous insect and other nonvenomous arthropods, initial encounter Discharge ED Provider: Андрей Campos General Adult HPI General Chief complaint: PAIN Stated complaint: pain Time Seen by Provider: 05/20/23 09:58 Mode of Arrival: Wheelchair Limitations: No Limitations Description of Symptoms (Recalled from ER Triage Doc. by RN): PT WITH MULTIPLE BEE STINGS C/O PAIN AND BURNING. NO DIFFICULTY BREATHING History of Present Illness HPI narrative: 52yo F presents the ER secondary to multiple bee stings. Complains of pain and burning. Denies allergy to bee stings. Denies any difficulty with her airway. Related Data Home Medications Medication Instructions Recorded Confirmed buprenorphine 100 mg/0.5 mL 100 mg SQ QMONTH N/A 09/09/22 04/14/23 solution,exten.rel.subcutaneous syringe (Sublocade) emtricitabine 200 mg-tenofovir 1 tab PO DAILY . 09/09/22 04/14/23 disoproxil fumarate 300 mg tablet estradiol 0.01% (0.1 mg/gram) 0.5 g vaginal .twice weekly 11/17/22 04/14/23 vaginal cream SUPPLIMENT torsemide 20 mg tablet 20 mg PO DAILY Fluid 11/17/22 04/14/23 estradiol 1 mg tablet 1 mg PO DAILY hormone replacement 11/25/22 04/14/23 Previous Rx's Medication Instructions Recorded methocarbamol 750 mg tablet 750 mg PO TID muscle spasm 7 days 02/12/23 #21 tabs potassium chloride 10 mEq See Rx Instructions .Route 02/17/23 capsule,extended release .COMPLEX #30 caps cyclobenzaprine 10 mg tablet 10 mg PO DAILY PRN muscle spasm 04/14/23 #30 tabs diazepam 5 mg tablet (Valium) 5 mg PO BID PRN muscle spasm #3 04/14/23 tabs ibuprofen 800 mg tablet See Rx Instructions .Route 04/14/23 .COMPLEX #90 tabs Allergies Allergy/AdvReac Type Severity Reaction Status Date / Time codeine [CODEINE] Allergy Intermediate NA-NAUSEA/V Verified 04/14/23 11:18 OMITING meloxicam [MELOXICAM] Allergy Intermediate I-RASH Verified 04/14/23 11:18 tramadol [TRAMADOL] Allergy Intermediate I-RASH Verified 04/14/23 11:18 butalbital [BUTALBITAL] Allergy Unknown TACHYCARDIA, Verified 04/14/23 11:18 NAUSEA caffeine [CAFFEINE] Allergy Unknown TACHYCARDIA, Verified 04/14/23 11:18 NAUSEA hydrocodone [HYDROCODONE] Allergy Unknown NA-NAUSEA/V Verified 04/14/23 11:18 OMITI
[2023-05-20 12:11] VITALS: BP 181/101; PULSE 98; RESP 17; TEMP 36.7; O2SAT 96
== END 2023-05-20 12:19 | disposition home or self-care (01) ==
PROVIDERS: Emergency Provider Family Medicine; PCP Family Medicine
DX: T63.441A Toxic effect of venom of bees, accidental (unintentional), initial encounter (principal); R51.9 Headache, unspecified; F17.290 Nicotine dependence, other tobacco product, uncomplicated
CPT/HCPCS: 96374; 96375; 99284

== ENCOUNTER → 2023-08-21 10:40 | Outpatient (CLI) | payer MEDICAID, SELFPAY ==
--- NOTE | 2023-08-21 10:41 | CT_ITS ---
FINAL REPORT CLINICAL HISTORY: lung cancer screening former smoker, quit 3 years ago. smoked 2 ppd x 25 years COMPARISON: None FINDINGS: CT CHEST LOW DOSE SCREENING HISTORY: Screening exam for lung cancer. Former smoker, 50 pack year smoking history DOSE: CTDIvol: 2.9 mGy, DLP: 100.55 mGy*cm COMPARISON: None . TECHNIQUE: Axial CT without IV contrast administration using low dose protocol FINDINGS: The overall image quality is limited secondary to patient body habitus. There is a calcified granuloma in the left lower lobe.. No pulmonary lesions are seen suspicious for neoplasm. No pleural or pericardial effusion is seen . There are small nonspecific mediastinal and left hilar nodes present.. IMPRESSION: No focal nodules or masses are identified. LUNG RADS CATEGORY 1 RECOMMENDATION: 12 month LDCT follow up Reviewed, Interpreted and Dictated by Pb Hancock III, MD Transcribed by Karly Culp Authenticated and [facility]
== END ==
PROVIDERS: PCP Internal Medicine; Visit Provider Internal Medicine
DX: Z87.891 Personal history of nicotine dependence (principal)
CPT/HCPCS: 71271

== ENCOUNTER → 2023-08-24 07:27 | Outpatient (CLI) | payer MEDICAID, SELFPAY ==
[2023-08-24 08:12] LABS: Chloride 100 mmol/L (98-107)
[2023-08-24 08:13] LABS: Potassium 4.8 mmoL/L (3.5-5.1); Sodium 139 mmol/L (136-145)
[2023-08-24 08:15] LABS: Alanine Aminotransferase 34 U/L (12-78); Alkaline Phosphatase 99 U/L (38-126); Anion Gap 14.8 mEq/L (5-15); Aspartate Amino Transferase 47 U/L (14-36); Bilirubin,Total 0.3 mg/dl (0.2-1.3); Blood Urea Nitrogen 14 mg/dl (7-17); Carbon Dioxide 29 mmol/L (22.0-30.0); Cholesterol 114 mg/dl (140-200); Estimated Glomerular Filt Rate 105 ml/min (>60); GFR (African American) 127 ML/MIN (>60); Triglycerides 166 mg/dl (30-150); VLDL Cholesterol 33 mg/dL (0-40)
[2023-08-24 08:16] LABS: Albumin Level 3.8 g/dl (3.5-5.0); Albumin/Globulin Ratio 1.2 (1.1-1.8); Chol/HDL Ratio 3.3 (1-3.5); Globulin 3.1 g/dL (1.3-3.2); Glucose 141 mg/dl (74-100); HDL Cholesterol 35 mg/dl (40-60); Total Protein,Serum 6.9 g/dl (6.3-8.2)
[2023-08-24 08:32] LABS: 25-OH Vitamin D, Total 19.8 ng/mL (30-100); Direct LDL Cholesterol 54.67 mg/dL (100-129)
[2023-08-24 08:34] LABS: Hemoglobin A1C 6.9 % (4.0-6.0)
[2023-08-24 08:40] LABS: Basophils % 0.3 % (0.1-2.0); Eosinophils # 0.2 K/mm3 (0.0-0.4); Eosinophils % 2.9 % (0.1-12.0); Hematocrit 37.7 % (37.0-47.0); Hemoglobin 12.6 g/dL (12.2-16.2); Lymphocytes # 1.4 K/mm3 (0.7-4.5); Mean Corpuscular HGB Conc 33.5 g/dL (31.8-35.4); Mean Corpuscular Hemoglobin 28.1 pg (27.0-31.2); Mean Corpuscular Volume 83.9 fl (81-99); Mean Platelet Volume 8.4 fl (7.4-10.4); Monocytes # 0.6 K/mm3 (0.1-1.0); Monocytes % 6.7 % (1.7-9.3); Neutrophils # 6.1 K/mm3 (1.8-7.8); Neutrophils % 73.2 % (37.0-80.0); Platelet Count 270 K/mm3 (142-424); Red Blood Count 4.49 M/mm3 (4.20-5.40); Red Cell Distribution Width 15.1 % (11.5-17.5); White Blood Count 8.3 K/mm3 (4.8-10.8)
[2023-08-24 08:49] LABS: Free T4 (Free Thyroxine) 1.28 ng/dl (0.78-2.19)
[2023-08-24 09:03] LABS: Thyroid Stimulating Hormone 3.78 uIU/mL (0.465-4.68)
== END ==
PROVIDERS: PCP Internal Medicine; Visit Provider Internal Medicine
DX: Z00.00 Encounter for general adult medical examination without abnormal findings (principal); Z13.29 Encounter for screening for other suspected endocrine disorder; Z13.1 Encounter for screening for diabetes mellitus; Z13.220 Encounter for screening for lipoid disorders; Z13.21 Encounter for screening for nutritional disorder; E55.9 Vitamin D deficiency, unspecified; Z68.43 Body mass index [BMI] 50.0-59.9, adult
CPT/HCPCS: 36415; 80053; 80061; 82306; 83036; 84439; 84443; 85025

== ENCOUNTER 2023-08-25 10:48 | Outpatient (RCR) | payer MEDICAID, SELFPAY ==
--- NOTE | 2023-08-25 11:26 | HMH.PTOPEV ---
PT Outpatient Evaluation Rehab PT Outpatient Evaluation Start: 08/25/23 11:12 Freq: Status: Active Protocol: Document 08/25/23 11:12 HIRAL (Rec: 08/25/23 11:26 HIRAL [id number]) E-signed By Andriy Ryder, PT Outpatient Therapy Subjective History Subjective History Pt reports h/o chronic LBP, left knee, and right hip pain for ~2 years. Pt reports left knee infection led to sx. I&D which 'now causes it to hurt and feel like it's gonna give out all the time.' Pt reports left knee pain and compensation has caused LBP and right hip radicular s/s. Pt reports decreased overall endurance, and now must ambulate with SC d/t hip,knee, LBP. New diagnosis of cancer in past 12 No months? Chief Complaint Pain,Stiff,Gives out/Unstable, Weakness Symptom Type Ache,Throb,Sharp,Dull,Stabbing Symptoms Relieved By Rest/Positioning,OTC Meds, Prescription Meds Symptoms Aggravated By Standing,Bending/Stooping, Physical Activity,Walking, Lifting Prior Functional Limitations Lifting,Housework,Standing, Walking Current Functional Limitations Lifting,Housework,Standing, Walking Symptom Description Constant but Variable Level of pain today (0-10) 6 Pain scale - at its best (0-10) 6 Pain scale - at its worst (0-10) 9 Lumbopelvic Eval Posture Thoracic Spine Posture Standing Position Neutral Lumbar Spine Posture Standing Position Flattened Assistive device Assistive Devices Straight Cane Gait Observation General Gait Pattern Observation Antalgic Gait,Wide Based Gait Palapation tenderness right lumbar spinal tenderness Yes: 3/4 paraspinal tenderness Yes: 3/4 buttock tenderness Yes: 3/4 Lumbar/Sacral Palpation Findings Tenderness,Muscle Guarding Accessory Movement L-spine Vertebrae Accessory Movements [employer] [place] that Elicit Symptoms L4 right L5 right Range of Motion Lumbar Spine Active Flexion Range of 0-40 Motion (degrees) Lumbar Spine Active Extension Range of 0 Motion (degrees) Left Lumbar Spine Lateral Flexion Active 0-15 Range of Motion (degrees) Right Lumbar Spine Lateral Flexion 0-25
== END 2023-08-25 10:50 | disposition home or self-care (01) ==
LOC: PT 10:48
PROVIDERS: PCP Internal Medicine; Visit Provider Internal Medicine
DX: M54.16 Radiculopathy, lumbar region (principal); M25.551 Pain in right hip; M25.562 Pain in left knee
CPT/HCPCS: 97163

== ENCOUNTER 2023-11-10 13:51 | Outpatient (CLI) | payer MEDICAID, SELFPAY ==
[2023-11-10 16:58] LABS: Amphetamine/Metha Screen,Urine Negative ng/ml (<1000); Barbiturates Screen,Urine Negative ng/ml (<200); Benzodiazepines Screen,Urine Negative ng/ml (<200); Cannabinoid Screen,Urine Negative ng/ml (<50); Cocaine Screen,Urine Negative ng/ml (<300); Methadone Screen,Urine Negative ng/ml (<300); Opiate Screen,Urine Negative ng/ml (<300); Phencyclidine Screen,Urine Negative ng/ml (<25)
== END 2023-11-10 23:59 ==
LOC: LAB.DROPOF 13:52
PROVIDERS: PCP Internal Medicine; Visit Provider Internal Medicine
DX: Z79.899 Other long term (current) drug therapy (principal)
CPT/HCPCS: 80307

== ENCOUNTER 2023-11-24 14:18 | Outpatient (CLI) | payer MEDICAID, SELFPAY ==
[2023-11-24 15:07] LABS: NT Pro Brain Natriuretic Pep. < 20.0 pg/mL (0-125)
== END 2023-11-24 23:59 ==
LOC: LAB.DROPOF 14:18
PROVIDERS: PCP Internal Medicine; Visit Provider Internal Medicine
DX: R60.0 Localized edema (principal)
CPT/HCPCS: 83880

== ENCOUNTER 2024-02-16 08:44 | Outpatient (CLI) | payer MEDICAID, SELFPAY ==
--- NOTE | 2024-02-16 08:50 | XR_ITS ---
FINAL REPORT CLINICAL HISTORY: Severe hip pain right sided pain x2 years, worsening COMPARISON: None FINDINGS: An AP view of the pelvis and a frog leg views of the right hip were obtained. There is no prior exam for comparison. There is no acute fracture or dislocation. There is severe degenerative change in the right hip, with a prominent superior acetabulum worrisome for mixed type femoral acetabular impingement. Mild to moderate degenerative change is noted in the lower lumbar spine. Soft tissues are within normal limits. IMPRESSION: No acute osseous abnormality of the right hip. Severe degenerative change of the right hip, with a prominent superior acetabulum worrisome for mixed type femoral acetabular impingement. Reviewed, Interpreted and Dictated by Pb Hancock III, MD Transcribed by Karly Culp Authenticated and [facility]
== END 2024-02-16 23:59 | disposition home or self-care (01) ==
LOC: RAD 08:45
PROVIDERS: PCP Internal Medicine; Visit Provider Internal Medicine
DX: M25.551 Pain in right hip (principal)
CPT/HCPCS: 73502

== ENCOUNTER 2024-03-03 09:00 | Outpatient (RCR) | payer MEDICAID, SELFPAY ==
--- NOTE | 2023-12-07 13:02 | HMH.PTOPWND ---
Rehab Outpt Wound Evaluation Rehab OP Wound Evaluation Start: 12/07/23 12:51 Freq: Status: Active Protocol: Document 12/07/23 12:51 ARA (Rec: 12/07/23 12:59 PHOSHERIF [id number]) E-signed By Lucien Huitron, PT Subjective/History History History This is the initial PT eval for Mary Xiong, 53 yowf who presents with c/o B LE edema for several years, gradually worsening. She states, Really I am swelling up everywhere and the water pills don't seem to help a lot. She reports increased pain and intermittent tingling with increased edema. She also reports, my hip won't let me get around like I want to anymore. She has PMH of substance abuse, TVH, CCY, C- section, ex-lap, BSO, DM, and Hep B. Subjective Subjective Current pain is 9/10, at worst is 10/10. 3/4 TTP noted in B lower legs. 1+ pitting edema noted with MOD fibrotic edema underlying. New diagnosis of cancer in past 12 No months? Lymphedema Eval Classification of Lymphedema Secondary Lymphedema Yes Stemmer's sign Stemmer's Sign yes Stage of Lymphedema Lymphedema stages Stage II (Pitting edema, increased fibrosis w/ decreased pitting) Skin Changes Dry Skin Yes Redness Yes Discoloration of Skin Yes Other Changes Yes Pain Scale Pain Scale (0-10) 9 Affected Extremities Areas Affected by Lymphedema/Edema Right Lower Extremity,Left Lower Extremity Manual Lymphatic Drainage Treatment Area MLD Treatment Area Right Lower Extremity,Left Lower Extremity Wound Problems/Impairments Impairments Problems/Impairmments Palpation Tenderness,Impaired Range of Motion,Impaired Strength,Impaired Endurance, Impaired Transfers,Impaired Gait Pattern,Impaired Walking, Impaired Standing,Impaired Sitting,Impaired Driving, Impaired Lifting,Impaired Shower/Bathing,Impaired Household Care,Impaired Stair Climbing,Impaired Incline Stepping,Impaired Stepping on Uneven Surface,Impaired Squatting,Impaired Recreational Activities, Increased Edema,Lymphedema Present,Subjective C/O Pain, Impaired Self Care/Self Management Prognosis Rehab Potential Fair Clinical Impression Consistent with Diagnosis Yes Short Term Goals Number of Weeks 2 Decreased Palpation Tenderness Yes: 2/4 B lower legs Decrease Edema Yes: no pitting edema Decrease Subjective C/O Pain Yes: 05/18 Patient to Understand Lymphedema Yes Treatment and Exercises Decrease Girth Measurments by (cm) Yes: B LE total by 5 cm ea. Half-Way Goals Number of Weeks 4 Decreased Palpation Tenderness Yes: 11/12 B lower legs Improve Ability For Household Care Yes Decrease Lymphedema Yes: Minimal fibrotic edema Decrease Subjective C/O Pain Yes: 03/18 Patient to be Ind w/ HEP Yes Patient to be Ind w/ [place] Yes Compression Garments Patient to Adhere Lymphedema Precautions Yes Decrease Girth Measurments by (cm) Yes: B LE total by 15 cm ea Outpatient Therapy Plan of Care Treatment Plan May Include Therapeutic Exercise Including Home Yes Exercise Program Manual Therapy Techniques Yes Neuromuscular Re-education Yes Therapeutic Activities to Return to Yes Previous Functional/Work Level ADL/Self Care Education Yes Orthotics/Bracing/Splinting Yes Manual Lymphatic Drainage Yes Eval/Re-Eval Yes Frequency Times per week 2 Duration Number of Weeks 4 Addendums This patient is a candidate for social No or vocational rehab? Patient/Guardian verbally acknowledges Yes understanding of treatment program and consents to further treatment? Patient/Guardian verbally acknowledges Yes understanding of diagnosis, prognosis and goals for treatment? Eval Complexity PT Charges 47355 - High Complexity PHYSICIAN CERTIFICATION: I certify the specified therapy services for Mary Xiong are required, authorized, and reviewed every 30 days.
--- NOTE | 2024-01-21 11:14 | HMH.RHREAS ---
Rehab Reassessment Rehab OP Re-assessment Start: 12/07/23 12:51 Freq: Status: Active Protocol: Document 01/21/24 11:07 ARA (Rec: 01/21/24 11:14 PHOSHERIF [id number]) E-signed By Lucine Huitron, PT Rehab Re-assessment Subjective Subjective Pt reports no pain in her legs this date, feels much better overall with edema also. Objective Objective Notes Circumferential measurements: R LE total 258.6 cm which is - 20.8 cm since IE L LE total 268.2 cm which is - 6.2 cm since IE Pain: 010 this date B LE. TTP: 11/12 B LE this date Edema: Minimal fibrotic edema in B LE from mid-thigh distally. 1+ pitting edema to B lower legs. Assessment Progress Assessment Progressing as Expected Assessment Notes Pt has shown significant overall reduction in B LE edema, R more so than L. She continues to have difficulty with ambulation and household care independently. She continues to need skilled intervention to return to prior level of function. Patient goals met ST,3,4,5 LT,3,4,[address] LT,6,7,8 Plan Plan Continue per initial POC. Frequency of Therapy 1-2 x/wk Duration of therapy 4 wks Time and Billing Re-Eval Time 12 Re-Eval Billing Units 1 PHYSICIAN CERTIFICATION: I certify the specified therapy services for Mary Xiong are required, authorized, and reviewed every 30 days.
== END 2024-03-03 10:20 | disposition home or self-care (01) ==
LOC: PT 09:00
PROVIDERS: PCP Internal Medicine; Visit Provider Internal Medicine
DX: R60.0 Localized edema (principal)
CPT/HCPCS: 97140; 97163; 97164

== ENCOUNTER 2024-03-23 06:44 | Outpatient (CLI) | payer MEDICAID, SELFPAY ==
--- NOTE | 2024-03-23 06:49 | CT_ITS ---
FINAL REPORT TECHNIQUE: Axial images through the abdomen and pelvis were performed without contrast. This study was performed with techniques to keep radiation doses as low as reasonably achievable, (ALARA). Individualized dose reduction techniques using automated exposure control or adjustment of mA and/or kV according to the patient's size were employed. CLINICAL HISTORY: abdominal hernia FINDINGS: ABDOMEN: There is a calcified granuloma in the left lung base. The heart size is normal. There is mild fatty infiltration of the liver. Patient is status post cholecystectomy. Mild vascular calcification is noted. The spleen is normal. No adrenal mass is identified. The aorta is normal in caliber. There is no significant free fluid or adenopathy. There is no nephrolithiasis. There is no hydronephrosis. PELVIS: The appendix is not identified. Note is made of prior hysterectomy. There is a right periumbilical hernia containing fat only. Hernia sac measures 1.5 cm in transverse dimension. The urinary bladder is unremarkable. There is no significant free fluid or adenopathy. IMPRESSION: Small periumbilical hernia containing fat only. Reviewed, Interpreted and Dictated by Pb Hancock III, MD Transcribed by Reema Bhagat Authenticated and [facility]
== END 2024-03-23 23:59 | disposition home or self-care (01) ==
LOC: RAD 06:44
PROVIDERS: PCP Internal Medicine; Visit Provider Internal Medicine
DX: K46.9 Unspecified abdominal hernia without obstruction or gangrene (principal)
CPT/HCPCS: 74176

== ENCOUNTER 2024-04-18 16:01 | Outpatient (CLI) | payer MEDICAID, SELFPAY ==
[2024-04-18 15:40] LABS: Microscopic, Urine URINE MICROSCOPIC (MICROSCOPIC)
[2024-04-18 15:42] LABS: Basophils % 0.3 % (0.1-2.0); Eosinophils # 0.2 K/mm3 (0.0-0.4); Eosinophils % 2.7 % (0.1-12.0); Hematocrit 38.5 % (37.0-47.0); Hemoglobin 12.1 g/dL (12.2-16.2); Lymphocytes # 1.2 K/mm3 (0.7-4.5); Lymphocytes % 15.7 % (10-50); Mean Corpuscular HGB Conc 31.5 g/dL (31.8-35.4); Mean Corpuscular Hemoglobin 26.8 pg (27.0-31.2); Mean Corpuscular Volume 85.2 fl (81-99); Mean Platelet Volume 8.7 fl (7.4-10.4); Monocytes # 0.6 K/mm3 (0.1-1.0); Monocytes % 7.2 % (1.7-9.3); Neutrophils # 5.8 K/mm3 (1.8-7.8); Platelet Count 289 K/mm3 (142-424); Red Blood Count 4.52 M/mm3 (4.20-5.40); Red Cell Distribution Width 15.9 % (11.5-17.5); White Blood Count 7.8 K/mm3 (4.8-10.8)
[2024-04-18 15:55] LABS: Alanine Aminotransferase 17 U/L (12-78); Albumin Level 4.2 g/dl (3.5-5.0); Albumin/Globulin Ratio 1.4 (1.1-1.8); Alkaline Phosphatase 97 U/L (38-126); Anion Gap 15.3 mEq/L (5-15); Aspartate Amino Transferase 31 U/L (14-36); Bilirubin,Total 0.4 mg/dl (0.2-1.3); Blood Urea Nitrogen 15 mg/dl (7-17); Calcium 9.5 mg/dl (8.4-10.2); Carbon Dioxide 31 mmol/L (22.0-30.0); Chloride 96 mmol/L (98-107); Chol/HDL Ratio 3.4 (1-3.5); Cholesterol 121 mg/dl (140-200); Estimated Glomerular Filt Rate 104 ml/min (>60); GFR (African American) 126 ML/MIN (>60); Globulin 3.1 g/dL (1.3-3.2); Glucose 93 mg/dl (74-100); HDL Cholesterol 36 mg/dl (40-60); Potassium 4.3 mmoL/L (3.5-5.1); Sodium 138 mmol/L (136-145); Total Protein,Serum 7.3 g/dl (6.3-8.2); Triglycerides 190 mg/dl (30-150); VLDL Cholesterol 38 mg/dL (0-40)
[2024-04-18 16:06] LABS: Direct LDL Cholesterol 58.97 mg/dL (100-129)
[2024-04-18 16:11] LABS: Free T4 (Free Thyroxine) 1.11 ng/dl (0.78-2.19)
[2024-04-18 16:13] LABS: Hemoglobin A1C 5.6 % (4.0-6.0)
[2024-04-18 16:27] LABS: 25-OH Vitamin D, Total 42.3 ng/mL (30-100)
[2024-04-18 16:44] LABS: Vitamin B12 416 pg/mL (239-931)
[2024-04-18 16:48] LABS: Appearance,Urine CLEAR (Clear); Bilirubin,Urine Negative (Negative); Blood, Urine TRACE-I (Negative); Color,Urine YELLOW (Yellow); Glucose,Urine (UA) Negative (Negative); Ketones,Urine Negative (Negative); Leukocyte Esterase,Urine 3+ (Negative); Nitrate,Urine Negative (Negative); PH,Urine 8.5 (5.0-8.5); Protein,Urine Negative (Negative); Specific Gravity, Urine 1.015 (1.005-1.030)
[2024-04-18 17:08] LABS: Bacteria,Urine Trace /lpf; WBC,Urine 20-50 #/hpf (0-3)
== END 2024-04-18 23:59 | disposition home or self-care (01) ==
LOC: LAB.DROPOF 16:01
PROVIDERS: PCP Nurse Practitioner Family; Visit Provider Nurse Practitioner Family
DX: E78.5 Hyperlipidemia, unspecified (principal); E11.9 Type 2 diabetes mellitus without complications; Z79.85 Long-term (current) use of injectable non-insulin antidiabetic drugs; Z79.84 Long term (current) use of oral hypoglycemic drugs; E55.9 Vitamin D deficiency, unspecified; R53.83 Other fatigue; G47.33 Obstructive sleep apnea (adult) (pediatric); R32 Unspecified urinary incontinence; Z68.42 Body mass index [BMI] 45.0-49.9, adult; E66.01 Morbid (severe) obesity due to excess calories
CPT/HCPCS: 80050; 80053; 80061; 81001; 82306; 82607; 83036; 84439; 84443; 85025; 87086

== ENCOUNTER 2024-06-02 08:05 | Outpatient (CLI) | payer MEDICAID, SELFPAY | END 2024-06-02 23:59 | disposition home or self-care (01) | LOC: RT 08:06 | PROVIDERS: PCP Nurse Practitioner Family; Visit Provider Physician Assistant | DX: R00.0 Tachycardia, unspecified (principal); R07.89 Other chest pain; R06.02 Shortness of breath | CPT/HCPCS: 93270; 93272 ==

== ENCOUNTER 2024-06-10 10:43 | Outpatient (CLI) | payer MEDICAID, SELFPAY ==
--- NOTE | 2024-06-10 11:09 | CA_ITS ---
APPROVED REPORT EXAM: Comprehensive 2D, Doppler, and color-flow Echocardiogram Civil Structural Engineer: Trisha Lieberman CRT Ht: 5 ft 2 in Wt: 270lbs BSA: 2.17 BP: 118/76 mmHg Indications: Obesity, Palpitations, Fatigue, Peripheral Edema, HX IVDA 2D Dimensions LA Volume 34.80 mL LA Volume Index 15.70 mL/m2 (M/F) 16-34 M-Mode Dimensions RVDd 2.71 cm (0.9-2.6) LA Diam 3.05 cm (1.9-4.0) LVDd 4.56 cm (3.5-5.7) LVDs 2.92 cm (3.5-5.7) IVSd 1.17 cm (0.6-1.1) PWd 0.93 cm (0.6-1.1) EF (Teich) 65.60% FS 36.00% EDV (Teich) 95.40 mL TAPSE 1.87 (<1.7) ESV (Teich) 32.80 mL LV Diastology E Decel Time 150 (160-240 msec) E/A Ratio 0.85 MED A' 16.50 cm/s LAT A' 14.70 cm/s Aortic Valve AO Peak GR. 7.60 mmHg Mitral Valve MV E Max Simón. 123.0 (40-130 cm/s) MV A Velocity 145.0 (40-130 cm/s) E/A Ratio 0.85 MV PHT 44.0 ms Pulmonary Valve PV Peak Velocity 99.0 (50-150 cm/s) Tricuspid Valve TR P. Velocity 171.00 cm/s RAP Estimate 10.00 mmHg RVSP 21.70 mmHg Left Ventricle The left ventricle is normal size. The left ventricular systolic function is normal. The left ventricular ejection fraction is within the normal range. There is increased LV wall thickness. There is normal LV segmental wall motion. Transmitral Doppler flow pattern suggests impaired LV relaxation. LVEF is 55%. Right Ventricle The right ventricle is normal size. The right ventricular systolic function is normal. Atria Left atrium is mildly dilated. The right atrium size is normal. There is no Doppler evidence of interatrial shunt. Aortic Valve The aortic valve opens well. There is no aortic valvular stenosis. Mild aortic regurgitation. Mitral Valve The mitral valve is normal in structure. No evidence of mitral valve stenosis. Trace mitral regurgitation. Tricuspid Valve The tricuspid valve leaflets are thin and pliable. Trace tricuspid regurgitation. There is insufficient TR jet to estimate RVSP. Pulmonic Valve The pulmonary valve is normal in structure. Trace pulmonic regurgitation. Great Vessels The aortic root is normal in size. The ascending aorta is not well-visualized. IVC is normal in size and collapses >50% with inspiration. Pericardium There is no pericardial effusion. Other Information Study Quality: Technically Difficult Conclusion Technically difficult study due to poor acoustic windows. Normal biventricular systolic function. Mild LA dilation. No significant valvular stenosis or regurgitation. Electronically signed by : Awa Figueroa MD 06/13/2024 00:06:13
== END 2024-06-10 23:59 | disposition home or self-care (01) ==
LOC: RT 10:43
PROVIDERS: PCP Internal Medicine; Visit Provider Physician Assistant
DX: R07.89 Other chest pain (principal); R06.02 Shortness of breath; R00.0 Tachycardia, unspecified; F19.91 Other psychoactive substance use, unspecified, in remission; F11.91 Opioid use, unspecified, in remission; B19.10 Unspecified viral hepatitis B without hepatic coma
CPT/HCPCS: 93306

== ENCOUNTER 2024-06-27 10:06 | Emergency (ER) | payer MEDICAID, SELFPAY ==
[2024-06-27 10:17] VITALS: BP 128/87; PULSE 105; RESP 18; TEMP 36.7; O2SAT 99; BMI 50.5
--- NOTE | 2024-06-27 10:31 | PC.NURSE ---
Dr. Baires at [facility] for pt eval
--- NOTE | 2024-06-27 10:32 | CT_ITS ---
FINAL REPORT TECHNIQUE: After the administration of intravenous contrast, axial images were obtained through the abdomen and pelvis by computed tomography. This study was performed with technique to keep radiation doses as low as reasonably achievable, (ALARA). Individualized dose reduction techniques using automated exposure control or adjustment of the MA and/or KV according to the patient's size were employed. CLINICAL HISTORY: LLQ and suprapubic ttp COMPARISON: 03/23/2024 FINDINGS: Abdomen: The lung bases are clear. The liver is mildly fatty infiltrated. Gallbladder is surgically absent. There is moderate intra and extrahepatic biliary ductal dilatation likely due to prior cholecystectomy change. There are calcified granulomas within the spleen. The spleen is otherwise unremarkable. The adrenals are normal. The pancreas is unremarkable. There is a benign-appearing cyst in the posterior right kidney, stable from prior exam. Kidneys are otherwise normal. The aorta is normal in caliber. There is no free fluid or adenopathy. Pelvis: There is streak artifact from right hip arthroplasty. The appendix is not identified. There is mild sigmoid diverticulosis without evidence of diverticulitis. The urinary bladder is unremarkable. There is no free fluid or adenopathy. IMPRESSION: Moderate intra and extrahepatic biliary ductal dilatation likely related to postcholecystectomy change. Recommend correlation with labs. Mild sigmoid diverticulosis. Reviewed, Interpreted and Dictated by Honorio Hernandez MD Transcribed by Rupa Ponce Authenticated and [facility]
--- NOTE | 2024-06-27 10:35 | HMH.EDGENADL ---
Discharge Plan Disposition Patient Disposition: Home, Self-Care Prescriptions Prescriptions: New phenazopyridine [Pyridium] 200 mg tablet 200 mg PO Q8H PRN (Reason: pain) 2 Days Qty: 6 0RF nitrofurantoin monohyd/m-cryst 100 mg capsule 100 mg PO BID 5 Days Qty: 10 0RF Rx Instructions: must administer with a meal/food No Action (DME) lancets [FreeStyle Lancets] 28 gauge misc See Rx Instructions .ROUTE .MEDSUPPLY Qty: 100 Rx Instructions: As directed estradiol 1 mg tablet 1 mg PO DAILY Qty: 30 11RF estradiol 0.01 % (0.1 mg/gram) cream 0.5 g vaginal .twice weekly Qty: 42.5 2RF Rx Instructions: Apply blueberry size amount vaginally twice weekly at bedtime (DME) Blood Glucose Test Strip See Rx Instructions .Route Qty: 50 5RF Rx Instructions: As directed coQ10 (ubiquinol) [Qunol Finesse CoQ10] 100 mg capsule 100 mg PO BID Qty: 180 3RF Brixadi 96 mg/0.27 mL solution, extended rel syringe 96 mg SQ QMONTH (DME) blood-glucose meter [Blood Glucose Monitoring] Kit See Rx Instructions .Route Qty: 1 0RF Rx Instructions: As directed pantoprazole [Protonix] 40 mg tablet,delayed release (DR/EC) 40 mg PO DAILY Qty: 90 3RF metformin 1,000 mg tablet 500 mg PO ONCE PRN (Reason: only if glucose is high) Qty: 90 3RF Ozempic 2 mg/dose (8 mg/3 mL) pen injector 2 mg SQ WEEKLY Qty: 3 5RF lactulose 10 gram/15 mL solution See Rx Instructions .ROUTE .COMPLEX Qty: 473 5RF Dose Instruction: TAKE 15 ML BY MOUTH 3 TIMES A DAY NEEDED FOR CONSTIPATION Rx Instructions: TAKE 15 ML BY MOUTH 3 TIMES A DAY NEEDED FOR CONSTIPATION furosemide 40 mg tablet 40 mg PO DAILY Qty: 90 3RF cyclobenzaprine 5 mg tablet 5 mg PO BID PRN (Reason: muscle spasm) Qty: 60 2RF cholecalciferol (vitamin D3) [Vitamin D3] 50 mcg (2,000 unit) capsule 50 mcg PO DAILY Qty: 90 3RF ibuprofen 800 mg tablet 800 mg PO Q8H PRN (Reason: fever or pain) Qty: 90 1RF diazepam 5 mg tablet 5 mg PO BID PRN (Reason: muscle spasm) Qty: 10 0RF Referrals Follow up/Referrals: Cholo Arreola DO [Primary Care Provider] - See instructions Activity Restrictions/Add. Instructions Additional Instructions/Restrictions: No evidence of an acute surgical pathology on your CT scan and your symptoms are most likely consistent with urinary tract infection with associated bladder spasms. If you do not see significant improvement with your antibiotics please return to your primary care doctor or to the emergency department. If you are running high fevers having intractable pain or nausea and vomiting please return as well. Clinical Impressions Clinical Impression: UTI (urinary tract infection), Bladder spasms Instructions Patient Instructions: DI for Acute Abdominal Pain Print Language Print Language: Citizen Of [place] Discharge ED Provider: Karishma Baires General Adult HPI General Chief complaint: Abdominal Pain Stated complaint: abd pain Time Seen by Provider: 06/27/24 10:25 Mode of Arrival: Ambulatory Source of Information: Patient and Relative Limitations: No Limitations Description of Symptoms (Recalled from ER Triage Doc. by RN): Pt. states she has been having abdominal pain off and on for a few months. She is on Ozempic and thinks that may be the cause of her pain. She states yesterday she drank apple juice and was able to have a large BM which helped to relieve the pain but this morning at 830 am she started having severe left sided abdominal pain. History of Present Illness HPI narrative: Patient is a 53-year-old female present today with lower abdominal discomfort. States it has been intermittent over the last several weeks. Does not complain of any significant pain at rest. Had a Cologuard test that was negative but has never had a colonoscopy. Is on Ozempic. She denies any significant diarrhea but has been taking lactulose and drinking a lot of juice so had some loose stools yesterday. She deals with chronic constipation as well. Denies any history of diverticulitis or diverticulosis or any other colonic pathology in the past. Denies any urinary symptoms such as hematuria. No history of kidney stones. Pain has been intermittent. Related Data Home Medications ?Medication ?Instructions ?Recorded ?Confirmed buprenorphine 96 mg/0.27 mL 96 mg SQ QMONTH 11/10/23 06/27/24 solution,exten.rel.subcutaneous syringe (Brixadi Monthly) lancets 28 gauge (FreeStyle #100 ea 11/24/23 06/27/24 Lancets) Previous Rx's ?Medication ?Instructions ?Recorded blood-glucose meter (Blood Glucose #1 ea 11/10/23 Monitoring kit) estradiol 0.01% (0.1 mg/gram) 0.5 g vaginal .twice weekly 12/29/23 vaginal cream SUPPLIMENT #42.5 grams estradiol 1 mg tablet 1 mg PO DAILY hormone replacement 12/29/23 #30 tabs blood sugar diagnostic (Blood #50 ea 01/05/24 Glucose Test strips) cyclobenzaprine 5 mg tablet 5 mg PO BID PRN muscle spasm #60 04/18/24 tabs furosemide 40 mg tablet 40 mg PO DAILY #90 tabs 04/18/24 lactulose 10 gram/15 mL oral See Rx Instructions .Route 04/18/24 solution .COMPLEX #473 mL metformin 1,000 mg tablet 500 mg (1/2 x 1,000 mg) PO ONCE 04/18/24 PRN only if glucose is high #90 tabs pantoprazole 40 mg tablet,delayed 40 mg PO DAILY #90 tabs 04/18/24 release (Protonix) semaglutide 2 mg/dose (8 mg/3 mL) 2 mg (0.75 mL) SQ WEEKLY #3 mL 04/18/24 subcutaneous pen injector (Ozempic) coQ10 (ubiquinol) 100 mg capsule 100 mg PO BID #180 caps 05/25/24 (Qunol Finesse CoQ10) cholecalciferol (vitamin D3) 50 50 mcg PO DAILY #90 caps 06/07/24 mcg (2,000 unit) capsule (Vitamin D3) ibuprofen 800 mg tablet 800 mg PO Q8H PRN fever or pain 06/07/24 #90 tabs diazepam 5 mg tablet 5 mg PO BID PRN muscle spasm #10 06/20/24 tabs nitrofurantoin 100 mg PO BID 5 days #10 caps 06/27/24 monohydrate/macrocrystals 100 mg capsule phenazopyridine 200 mg tablet 200 mg PO Q8H PRN pain 2 days #6 06/27/24 (Pyridium) tabs Allergies Allergy/AdvReac Type Severity Reaction Status Date / Time codeine [CODEINE] Allergy Intermediate NA-NAUSEA/V Verified 06/27/24 10:36 OMITING tramadol [TRAMADOL] Allergy Intermediate I-RASH Verified 06/27/24 10:36 butalbital [BUTALBITAL] Allergy Unknown TACHYCARDIA, Verified 06/27/24 10:36 NAUSEA Sulfa (Sulfonamide Allergy Unknown NA-NAUSEA/V Verified 06/27/24 10:36 Antibiotics) OMITING [SULFA (SULFONAMIDE ANTIBIOTICS)] famotidine AdvReac Vomiting Verified 06/27/24 10:36 PFS PFS Disclaimer: The information contained in this section may have been updated after the patient was seen, as this information can be updated by other users. Medical History (Updated 06/27/24 @ 13:10 by Karishma Baires MD) Edema Bites and stings, insect Sinusitis Gastritis Leaking of urine Abnormal vaginal bleeding Hot flashes Carpal tunnel syndrome History of drug abuse Surgical History History of right hip replacement H/O left knee surgery History of anterior colporrhaphy History of appendectomy H/O exploratory laparotomy History of stress incontinence procedure using tension free vaginal tape History of salpingo-oophorectomy History of pubovaginal sling H/O right knee surgery History of carpal tunnel release History of total vaginal hysterectomy (TVH) History of tubal ligation History of low transverse section History of cholecystectomy Family History Other Diabetes Heart attack Hyperlipidemia Hypertension Stroke Substance abuse Thyroid disorder Social History Smoking Status: Current every day smoker tobacco type: e-cigarettes alcohol intake: never substance use type: former substance user current occupational status: other Travel in the last 8 weeks: None ROS Obtained: Yes All systems reviewed & no additional complaints except as documented Physical Exam General General appearance: alert and in no apparent distress Respiratory Respiratory exam: Present normal lung sounds bilaterally Cardiovascular Cardiovascular exam: Present regular rate Abdominal Exam Abdominal exam: Present tenderness (Left lower quadrant and suprapubic tenderness to palpation) Neurological Exam Neurological exam: Present alert and oriented X3 Medical Decision Making Boubacar Inquiry Pt receiving controlled substance: No Vital Signs: 06/27/24 10:17 06/27/24 11:00 06/27/24 11:29 Temperature 98.0 F Temperature Source Oral Pulse Rate 94 H 96 H Pulse Rate [Right Brachial] 105 H Respiratory Rate 18 Blood Pressure 132/60 116/50 L Blood Pressure [Right Arm] 128/87 Blood Pressure Mean [Right Arm] 100 Blood Pressure Source [Right Arm] Automatic Cuff Blood Pressure Position [Right Arm] Sitting 02 Sat by Pulse Oximetry 99 94 L 98 Oxygen Delivery Method Room Air Room Air Room Air 06/27/24 12:00 Temperature Temperature Source Pulse Rate 89 Pulse Rate [Right Brachial] Respiratory Rate Blood Pressure 128/84 Blood Pressure [Right Arm] Blood Pressure Mean [Right Arm] Blood Pressure Source [Right Arm] Blood Pressure Position [Right Arm] 02 Sat by Pulse Oximetry 95 Oxygen Delivery Method Room Air Lab Data Lab results reviewed: Yes I reviewed the patient's lab results. Lab Results 06/27/24 10:10: Urine Color Yellow, Urine Appearance Clear, Urine pH 6.0, Ur Specific [place] >= 1.030, Urine Protein Trace, Urine Glucose (UA) Negative, Urine Ketones Trace, Urine Blood Trace-i, Urine Nitrate Negative, Urine Bilirubin Negative, Urine Urobilinogen 0.2, Ur Leukocyte Esterase 2+ A, Urine RBC Occasional, Urine WBC 20-50, Ur Squamous Epith Cells 5-10, Urine Bacteria 1+ 06/27/24 10:23: WBC 10.0, RBC 4.67, Hgb 11.6 L, Hct 37.3, MCV 79.9 L, MCH 24.8 L, MCHC 31.0 L, RDW 16.2, Plt Count 299, MPV 7.8, Neut % (Auto) 76.0, Lymph % (Auto) 13.6, Posey % (Auto) 7.1, Eos % (Auto) 2.9, Baso % (Auto) 0.4, Neut # (Auto) 7.6, Lymph # (Auto) 1.4, Posey # (Auto) 0.7, Eos # (Auto) 0.3, Baso # (Auto) 0.0, Sodium 137, Potassium 5.0, Chloride 103, Carbon Dioxide 26, Anion Gap 13.0, BUN 10, Creatinine 0.40 L, Estimated Creat Clear 127, Estimated GFR 166, Est GFR ( Amer) 201, Glucose 105 H, Calcium 9.1, Total Bilirubin 0.6, AST 46 H, ALT 23, Alkaline Phosphatase 96, Total Protein 7.3, Albumin 3.8, Globulin 3.5 H, Albumin/Globulin Ratio 1.1, Lipase 128 06/27/24 10:23 06/27/24 10:23 Orders (Tests/Meds): ED MEDICATIONS Discontinued Medications Generic Name Dose Route Start Last Admin Trade Name Jason PRN Reason Stop Dose Admin Lactated Ringer's 1,000 mls @ 999 mls/hr 06/27/24 10:45 06/27/24 10:38 Lactated Ringer's 1000 Ml Bag IV 06/27/24 11:45 999 mls/hr .Q1H1M SLICK Administration Iopamidol 75 ml 06/27/24 11:24 06/27/24 11:25 Iopamidol-370 (76%);100ml Bottle IV 06/27/24 11:25 75 ml ONCE ONE Administration Ketorolac Tromethamine 15 mg 06/27/24 10:32 06/27/24 10:44 Ketorolac 30mg/Ml Vial IV 06/27/24 10:33 15 mg ONCE ONE Administration Ondansetron HCl 4 mg 06/27/24 10:32 06/27/24 10:38 Ondansetron 4mg/2ml Vial IV 06/27/24 10:33 4 mg ONCE ONE Administration Sodium Chloride 10 ml 06/27/24 11:24 06/27/24 11:25 Sodium Chloride 0.9% 10ml Syr (Rad Only) IV 06/27/24 11:25 10 ml ONCE ONE Administration ORDERS Category Date Time Status CT abdomen pelvis w con Stat Cat Scan 06/27/24 10:32 Taken CBC w/Auto Diff [Complete Blood Count Auto Diff] Stat Lab 06/27/24 10:23 Completed CMP [Comprehensive Metabolic Panel] Stat Lab 06/27/24 10:23 Completed Lactic Acid Stat Lab 06/27/24 10:33 Ordered Lipase Stat Lab 06/27/24 10:23 Completed UA [Urinalysis and Microscopic] Stat Lab 06/27/24 10:10 Completed Urine Culture Stat Micro 06/27/24 10:10 Received Medical Decision Narrative: 53-year-old female presents today with above history and physical has lower abdominal tenderness. Differential includes side effect secondary to Ozempic, constipation, diverticulitis colitis etc. Will get a contrasted CT scan for further evaluation and administer IV fluids pain medicine nausea medicine will reassess Reassessment 110 patient feeling better serial abdominal exams are unchanged chief states that she has significant improvement with her symptoms. CT scan was performed to person interpreted shows no evidence of an acute surgical pathology there is diverticulosis without evidence of diverticulitis radiology read concerning for intra and extrahepatic ductal dilatation with this is consistent with post cholecystectomy changes. She has no right upper quadrant symptoms and no significant abnormalities in her LFTs. Patient does have some urinary urgency and urinalysis is markedly abnormal consistent with cystitis likely with associated bladder spasms. Nitrofurantoin and Pyridium have been prescribed return precautions emphasized patient discharged in stable condition peer Critical Care Critical Care Time Critical Care Time: No
[2024-06-27 10:36] LABS: Microscopic, Urine URINE MICROSCOPIC (MICROSCOPIC)
[2024-06-27] MEDS: LACTATED RINGERS 1000ML 1,000 ML 999 ML IV (10:38)
[2024-06-27] MEDS: ONDANSETRON 4MG/2ML VIAL 4 MG IV (10:38)
[2024-06-27 10:43] LABS: Appearance,Urine CLEAR (Clear); Bilirubin,Urine Negative (Negative); Blood, Urine TRACE-I (Negative); Color,Urine YELLOW (Yellow); Glucose,Urine (UA) Negative (Negative); Ketones,Urine TRACE (Negative); Leukocyte Esterase,Urine 2+ (Negative); Nitrate,Urine Negative (Negative); Protein,Urine TRACE (Negative); Specific Gravity, Urine >= 1.030 (1.005-1.030); Urobilinogen,Urine 0.2 EU/dl (0.2)
[2024-06-27] MEDS: KETOROLAC 30MG/ML VIAL 15 MG IV (10:44)
[2024-06-27 10:46] LABS: Basophils % 0.4 % (0.1-2.0); Eosinophils # 0.3 K/mm3 (0.0-0.4); Eosinophils % 2.9 % (0.1-12.0); Hematocrit 37.3 % (37.0-47.0); Hemoglobin 11.6 g/dL (12.2-16.2); Lymphocytes # 1.4 K/mm3 (0.7-4.5); Lymphocytes % 13.6 % (10-50); Mean Corpuscular Hemoglobin 24.8 pg (27.0-31.2); Mean Corpuscular Volume 79.9 fl (81-99); Mean Platelet Volume 7.8 fl (7.4-10.4); Monocytes # 0.7 K/mm3 (0.1-1.0); Monocytes % 7.1 % (1.7-9.3); Neutrophils # 7.6 K/mm3 (1.8-7.8); Platelet Count 299 K/mm3 (142-424); Red Blood Count 4.67 M/mm3 (4.20-5.40); Red Cell Distribution Width 16.2 % (11.5-17.5)
[2024-06-27 11:00] VITALS: BP 132/60; PULSE 94; O2SAT 94
[2024-06-27 11:14] LABS: Alanine Aminotransferase 23 U/L (12-78); Albumin Level 3.8 g/dl (3.5-5.0); Albumin/Globulin Ratio 1.1 (1.1-1.8); Alkaline Phosphatase 96 U/L (38-126); Aspartate Amino Transferase 46 U/L (14-36); Bilirubin,Total 0.6 mg/dl (0.2-1.3); Blood Urea Nitrogen 10 mg/dl (7-17); Calcium 9.1 mg/dl (8.4-10.2); Carbon Dioxide 26 mmol/L (22.0-30.0); Chloride 103 mmol/L (98-107); Creatinine Clearance Estimated 127 mL/min (50-200); Estimated Glomerular Filt Rate 166 ml/min (>60); GFR (African American) 201 ML/MIN (>60); Globulin 3.5 g/dL (1.3-3.2); Glucose 105 mg/dl (74-100); Lipase 128 U/L (23-300); Sodium 137 mmol/L (136-145); Total Protein,Serum 7.3 g/dl (6.3-8.2)
[2024-06-27] MEDS: SODIUM CHLORIDE 0.9% 10ML SYR (RAD ONLY) 10 ML IV (11:25)
[2024-06-27] MEDS: IOPAMIDOL-370 (76%);100ML BOTTLE 75 ML IV (11:25)
[2024-06-27 11:29] VITALS: BP 116/50; PULSE 96; O2SAT 98
[2024-06-27 11:36] LABS: Bacteria,Urine 1+ /lpf; RBC,Urine Occasional #/hpf (0-3); WBC,Urine 20-50 #/hpf (0-3)
[2024-06-27 12:00] VITALS: BP 128/84; PULSE 89; O2SAT 95
[2024-06-27 13:16] VITALS: BP 127/89; PULSE 87; RESP 16; TEMP 36.7; O2SAT 98
== END 2024-06-27 13:21 | disposition home or self-care (01) ==
PROVIDERS: Emergency Provider Student in an Organized Health Care Education/Training Program; PCP Internal Medicine
DX: N39.0 Urinary tract infection, site not specified (principal); N32.89 Other specified disorders of bladder
CPT/HCPCS: 74177; 80053; 81001; 83690; 85025; 87086; 96361; 96374; 96375; 99284; J1885; J2405; J7120; Q9967

== ENCOUNTER 2024-07-18 14:56 | Outpatient (CLI) | payer MEDICAID, SELFPAY ==
[2024-07-18 12:49] LABS: Microscopic, Urine URINE MICROSCOPIC (MICROSCOPIC)
[2024-07-18 13:47] LABS: Anion Gap 12.3 mEq/L (5-15); Blood Urea Nitrogen 11 mg/dl (7-17); Calcium 9.3 mg/dl (8.4-10.2); Carbon Dioxide 26 mmol/L (22.0-30.0); Chloride 103 mmol/L (98-107); Chol/HDL Ratio 3.5 (1-3.5); Cholesterol 111 mg/dl (140-200); Estimated Glomerular Filt Rate 129 ml/min (>60); GFR (African American) 156 ML/MIN (>60); Glucose 111 mg/dl (74-100); HDL Cholesterol 32 mg/dl (40-60); Potassium 4.3 mmoL/L (3.5-5.1); Sodium 137 mmol/L (136-145); Triglycerides 272 mg/dl (30-150); VLDL Cholesterol 54 mg/dL (0-40)
[2024-07-18 13:58] LABS: Direct LDL Cholesterol 52.91 mg/dL (100-129)
[2024-07-18 14:27] LABS: Appearance,Urine CLEAR (Clear); Bilirubin,Urine Negative (Negative); Blood, Urine 2+ (Negative); Color,Urine YELLOW (Yellow); Glucose,Urine (UA) Negative (Negative); Ketones,Urine Negative (Negative); Leukocyte Esterase,Urine 1+ (Negative); Nitrate,Urine Negative (Negative); Protein,Urine TRACE (Negative); Specific Gravity, Urine >= 1.030 (1.005-1.030); Urobilinogen,Urine 0.2 EU/dl (0.2)
[2024-07-18 14:28] LABS: Bacteria,Urine 3+ /lpf
[2024-07-18 16:05] LABS: HIV (1&2) Antibody Rapid NONREACTIVE (NONREACTIVE)
[2024-07-18 17:34] LABS: Creatinine,Urine Random 212 mg/dL (Not Estab.)
[2024-07-18 17:51] LABS: Hemoglobin A1C 6.2 % (4.0-6.0)
[2024-07-21 15:25] LABS: HBsAg Screen Negative (Negative); HCV Ab Reactive (Non Reactive); Hep A Ab, IGM Negative (Negative); Hep B Core Ab, IgM Negative (Negative)
== END 2024-07-18 23:59 | disposition home or self-care (01) ==
LOC: LAB.DROPOF 14:56
PROVIDERS: PCP Nurse Practitioner Family; Visit Provider Nurse Practitioner Family
DX: Z11.4 Encounter for screening for human immunodeficiency virus [HIV] (principal); Z11.59 Encounter for screening for other viral diseases; E11.9 Type 2 diabetes mellitus without complications; F11.91 Opioid use, unspecified, in remission; Z91.89 Other specified personal risk factors, not elsewhere classified; B19.10 Unspecified viral hepatitis B without hepatic coma; E78.5 Hyperlipidemia, unspecified; R32 Unspecified urinary incontinence; F17.200 Nicotine dependence, unspecified, uncomplicated; Z79.84 Long term (current) use of oral hypoglycemic drugs; Z79.85 Long-term (current) use of injectable non-insulin antidiabetic drugs
CPT/HCPCS: 80048; 80061; 80074; 81001; 82043; 82570; 83036; 86803; 87086; 87389

== ENCOUNTER 2024-07-26 09:15 | Outpatient (CLI) | payer MEDICAID, SELFPAY ==
[2024-07-26 09:19] LABS: Microscopic, Urine URINE MICROSCOPIC (MICROSCOPIC)
[2024-07-26 10:02] LABS: Appearance,Urine SL CLOUDY (Clear); Bilirubin,Urine Negative (Negative); Blood, Urine Negative (Negative); Color,Urine YELLOW (Yellow); Glucose,Urine (UA) Negative (Negative); Ketones,Urine Negative (Negative); Leukocyte Esterase,Urine 2+ (Negative); Nitrate,Urine Negative (Negative); Protein,Urine Negative (Negative); Urobilinogen,Urine 0.2 EU/dl (0.2)
[2024-07-26 10:21] LABS: Bacteria,Urine Trace /lpf; Squamous Epithelial Cell,Urine Occasional #/hpf (0-5)
== END 2024-07-26 23:59 | disposition home or self-care (01) ==
LOC: LAB 09:16
PROVIDERS: PCP Internal Medicine; Visit Provider Nurse Practitioner Family
DX: R39.9 Unspecified symptoms and signs involving the genitourinary system (principal)
CPT/HCPCS: 81001; 87086

== ENCOUNTER 2024-08-25 08:23 | Outpatient (CLI) | payer MEDICAID, SELFPAY ==
--- NOTE | 2024-08-25 08:26 | MM_ITS ---
PROCEDURE INFORMATION: Exam: Bilateral Screening 3D Mammography Exam date and time: 08/25/2024 8:12 AM Age: 53 years old Clinical indication: Screening exam. TECHNIQUE: Imaging protocol: Bilateral Screening tomosynthesis and 2D mammography including computer-aided detection (CAD) when performed. COMPARISON: MG DMSB DIG MAMM-SCREEN MUSHTAQ W/CAD 12/16/2016 4:24 PM FINDINGS: MAMMOGRAPHY: Breast composition: There are scattered areas of fibroglandular density. Mass: No suspicious masses. Architectural distortion: None. Calcifications: No suspicious calcifications. Asymmetric density: 1.2 cm questioned mass left breast 12 o'clock middle depth. Skin thickening: None. Axillary adenopathy: Questioned prominent right axillary lymph node. No left axillary adenopathy. IMPRESSION: 1. Left breast questioned mass.Recommend left breast diagnostic mammogram including spot compression views of the left breast in the CC and MLO projections, a full 90 degree lateral view, and left breast ultrasound for further evaluation. 2. Questioned prominent right axillary lymph node. Recommend further evaluation with right axillary ultrasound. ASSESSMENT: BI-RADS Category 0: Incomplete- Need Additional Imaging Evaluation.
--- NOTE | 2024-08-25 08:53 | XR_ITS ---
FINAL REPORT TECHNIQUE: Bone densitometry calculations of the lumbar spine and left hip were obtained. CLINICAL HISTORY: Screening for osteoporosis COMPARISON: None FINDINGS: Using L1-4, the bone mineral density of the spine is 1.192 g/cm2, corresponding to T-score of 1.3. Using the left hip, the bone mineral density of the femoral neck is 0.752 g/cm2, corresponding to a T-score of -0.9. NOTE: T-score: Standard deviation compared with peak bone mass of young adult mean. *Following the recommendations of the International Society of Bone densitometry, classification of hip BMD is based on the lower of two T-scores; total hip or femoral neck. IMPRESSION: Normal bone mineral density of the lumbar spine and hip. Reviewed, Interpreted and Dictated by Honorio Hernandez MD Transcribed by Karly Culp Authenticated and [facility]
== END 2024-08-25 23:59 | disposition home or self-care (01) ==
LOC: RAD 08:26
PROVIDERS: PCP Nurse Practitioner Family; Visit Provider Nurse Practitioner Family
DX: Z12.31 Encounter for screening mammogram for malignant neoplasm of breast (principal); Z13.820 Encounter for screening for osteoporosis
CPT/HCPCS: 77063; 77067; 77080

== ENCOUNTER 2024-09-05 16:51 | Outpatient (CLI) | payer MEDICAID, SELFPAY ==
[2024-09-05 14:54] LABS: Basophils % 0.6 % (0.1-2.0); Eosinophils # 0.2 K/mm3 (0.0-0.4); Eosinophils % 3.7 % (0.1-12.0); Hematocrit 32.6 % (37.0-47.0); Hemoglobin 10.6 g/dL (12.2-16.2); Lymphocytes # 1.1 K/mm3 (0.7-4.5); Lymphocytes % 18.3 % (10-50); Mean Corpuscular HGB Conc 32.4 g/dL (31.8-35.4); Mean Corpuscular Hemoglobin 24.3 pg (27.0-31.2); Monocytes # 0.5 K/mm3 (0.1-1.0); Monocytes % 8.9 % (1.7-9.3); Neutrophils % 68.5 % (37.0-80.0); Platelet Count 241 K/mm3 (142-424); Red Blood Count 4.35 M/mm3 (4.20-5.40); White Blood Count 5.9 K/mm3 (4.8-10.8)
[2024-09-05 15:10] LABS: Uric Acid 5.4 mg/dl (2.5-6.2)
[2024-09-05 15:15] LABS: C-Reactive Protein 25.4 mg/L (0-4)
[2024-09-05 15:42] LABS: Erythrocyte Sedimentation Rate 25 mm/hr (0-30)
[2024-09-06 12:12] LABS: Anti-Centromere B Antibodies <0.2 AI (0.0-0.9); Anti-DNA (DS) Ab Qn <1 IU/mL (0-9); Anti-Jo-1 <0.2 AI (0.0-0.9); Anti-Smith Antibody <0.2 AI (0.0-0.9); Antichromatin Antibodies <0.2 AI (0.0-0.9); Antiscleroderma-70 Antibodies <0.2 AI (0.0-0.9); RNP Antibodies >8.0 AI (0.0-0.9); Sjogren's Anti-SS-A <0.2 AI (0.0-0.9); Sjogren's Anti-SS-B <0.2 AI (0.0-0.9)
[2024-09-06 14:13] LABS: RA Latex Turbid. <10.0 IU/mL (<14.0)
[2024-09-06 16:38] LABS: Anti-Cyclic Citrullinated Pept 9 units (0-19)
[2024-09-07 14:33] LABS: Antinuclear Antibodies, IFA Negative (.)
[2024-09-19 05:07] LABS: RF, IgA by EIA (RDL) < 7 U (<7); RF, IgG by EIA (RDL) < 7 U (<7); RF, IgM by EIA (RDL) < 7 U (<7)
== END 2024-09-05 23:59 | disposition home or self-care (01) ==
LOC: LAB.DROPOF 16:51
PROVIDERS: PCP Nurse Practitioner Family; Visit Provider Nurse Practitioner Family
DX: M06.30 Rheumatoid nodule, unspecified site (principal); M06.9 Rheumatoid arthritis, unspecified; L40.0 Psoriasis vulgaris
CPT/HCPCS: 84550; 85025; 85651; 86038; 86140; 86200; 86225; 86235; 86431

== ENCOUNTER 2024-09-20 07:41 | Outpatient (CLI) | payer MEDICAID, SELFPAY ==
--- NOTE | 2024-09-20 07:41 | US_ITS ---
PROCEDURE INFORMATION: Exam: US Right Limited Joint or Other Non-Vascular Extremity Structure Exam date and time: 09/20/2024 8:32 AM Age: 53 years old Clinical indication: Abnormal findings; Abnormal imaging study; Mamm; Additional info: Abnormal screening mammogram, enlarged lymph node TECHNIQUE: Imaging protocol: US right limited joint or other nonvascular extremity structure. Real-time ultrasound with image documentation. Exam focused on the area of clinical interest. COMPARISON: No relevant prior studies available. FINDINGS: Soft tissues: No loculated collections. Other findings: Ultrasonographic images of the soft tissues in questions/right axillary region. Hypoechoic nodules right axillary region of approximately 1.8 cm in length, 2.5 cm in length, 1.9 cm in length and 2.9 cm in length. Fatty nidus. IMPRESSION: Lymph nodes in the axilla as described above. Limited as only a single dimension were measured. Nevertheless, cortex appears intact with fatty nidus.
--- NOTE | 2024-09-20 07:41 | US_ITS ---
PROCEDURE INFORMATION: Exam: US Left Breast, Complete MG Left Diagnostic Breast Tomosynthesis Exam date and time: 09/20/2024 8:42 AM Age: 53 years old Clinical indication: Recall on basis of screening mammogram 08/25/2024 for further evaluation of 1.2 cm questioned mass left breast 12 o'clock middle depth and questionably prominent right axillary lymph node. TECHNIQUE: Imaging protocol: Complete ultrasound of all four quadrants of the left breast and the retroareolar regions, including ultrasound of the axilla when performed. Left Diagnostic tomosynthesis and 2D mammography including computer-aided detection (CAD) when performed. Unilateral or bilateral exam. COMPARISON: MG MM DIG MAMM DX UNILAT LT CAD 09/20/2024 7:51 AM FINDINGS: MAMMOGRAPHY: Breast composition: There are scattered areas of fibroglandular density based on the most recent screening mammogram report. Breast mammogram findings: Questionable 1.2 cm oval asymmetry persists in the central posterior breast in the CC projection and disperses in the MLO spot compression. ULTRASOUND: Breast ultrasound findings: Left sonography, 4 quadrants, retroareolar and the axilla. In the upper inner quadrant at 11 o'clock 3 cm from the nipple, 2 oval hypoechoic avascular mass, probably a complicated cyst or part of an ectatic duct measuring 0.5 x 0.4 x 0.2 cm and 0.4 x 0.4 x 0.2 cm. No other sonographic findings demonstrated. Unremarkable images of the axilla. IMPRESSION: See comment Patient will be recalled for right diagnostic rolled views (or angled tube views in the CC projection) and full field lateral for further evaluation of questionable asymmetry which persists in the craniocaudad projection, with negative sonography. Patient will be recalled for right axillary sonography for further evaluation of questionable right axillary lymph node as indicated in the 08/25/2024 mammogram report. ASSESSMENT: BI-RADS Category 0: Incomplete: Need Additional Imaging Evaluation and/or Prior Mammograms for Comparison
== END 2024-09-20 23:59 | disposition home or self-care (01) ==
LOC: RAD 07:41
PROVIDERS: PCP Nurse Practitioner Family; Visit Provider Nurse Practitioner Family
DX: R59.0 Localized enlarged lymph nodes (principal); R92.8 Other abnormal and inconclusive findings on diagnostic imaging of breast; N63.20 Unspecified lump in the left breast, unspecified quadrant
CPT/HCPCS: 76641; 76642; 77061; 77065; G0279

== ENCOUNTER 2024-09-28 10:41 | Outpatient (CLI) | payer MEDICAID, SELFPAY ==
--- NOTE | 2024-09-28 11:20 | MM_ITS ---
PROCEDURE INFORMATION: Exam: MG Left Diagnostic Breast Tomosynthesis Exam date and time: 09/28/2024 11:05 AM Age: 53 years old Clinical indication: Recall on the basis of screening mammogram 08/25/2024 for further evaluation of 1.2 cm question mass left breast 12 o'clock middle depth, also evaluated on diagnostic mammography and sonography on 09/20/2024 - as well as sonographic evaluation of questionable prominent right axillary node as indicated on 08/25/2024. TECHNIQUE: Imaging protocol: Left Diagnostic tomosynthesis and 2D mammography including computer-aided detection (CAD) when performed. Unilateral or bilateral exam. COMPARISON: 1. MG MM DIG MAMM DX UNILAT LT CAD 09/20/2024 7:51 AM 2. MG MM DIG SCREENING MAMM BI W/CAD 08/25/2024 8:12 AM 3. MG DMSB DIG MAMM-SCREEN MUSHTAQ W/CAD 12/16/2016 4:24 PM 4. US BREAST LT COMPLETE 09/20/2024 8:42 AM FINDINGS: MAMMOGRAPHY: Breast composition: There are scattered areas of fibroglandular density based on the most recent screening mammogram report. Breast mammogram findings: Rolled view and true lateral show persistent, proximally 1.5 cm focal asymmetry in the left 12 o'clock middle 3rd. IMPRESSION: See comment Recommend stereotactic biopsy for indeterminate focal asymmetry in 12 o'clock middle depth (the 2 small cystic changes at 11 o'clock 3 cm from the nipple noted on 08/25/2024 do not appear to be the sonographic correlate of the mammographic asymmetry). Also, please recall for right sonography for further evaluation of questioned prominent right lymph node as indicated on 08/25/2024 mammogram report. ASSESSMENT: BI-RADS Category 4: Suspicious.
== END 2024-09-28 23:59 | disposition home or self-care (01) ==
LOC: RAD 10:42
PROVIDERS: PCP Nurse Practitioner Family; Visit Provider Nurse Practitioner Family
DX: R59.0 Localized enlarged lymph nodes (principal); R92.8 Other abnormal and inconclusive findings on diagnostic imaging of breast
CPT/HCPCS: 77061; 77065; G0279

== ENCOUNTER 2024-10-14 07:17 | Outpatient (CLI) | payer OTHER, SELFPAY ==
--- NOTE | 2024-10-14 | MM_ITS ---
FINAL REPORT CLINICAL HISTORY: .clip placement , s/p biopsy FINDINGS: MAMMOGRAM LEFT TECHNIQUE: Standard digital 2-D views COMPARISON: Recent prior abnormal mammograms within the past 2 months DENSITY: There are scattered areas of fibroglandular density FINDINGS: Post biopsy marker clip is noted to be in satisfactory position. Postbiopsy changes are noted. Clip is seen at approximately 12:00. IMPRESSION: Biopsy marker clip in good position ASSESSMENT: A post-procedure mammogram is used to confirm the position and deployment of a breast tissue marker after a biopsy RECOMMENDATION: Pending histopathology evaluation Authenticated and ERN
--- NOTE | 2024-10-14 | MM_ITS ---
FINAL REPORT CLINICAL HISTORY: left breast density, abnormal mammogram FINDINGS: STEREOTACTIC GUIDED RIGHT BREAST BIOPSY, CLIP PLACEMENT, AND POST BIOPSY MAMMOGRAM Indication: Abnormal mammogram/density/mass Findings: The stereotactic guided breast biopsy procedure was explained in detail to the patient including potential risk and benefits. The patient voiced an understanding of the procedure, was given an opportunity to ask questions, after which informed consent was obtained. The patient was positioned upon the stereotactic unit in the upright position. The breast was prepped in the usual sterile fashion. Subcutaneous soft tissues were anesthetized with lidocaine with epinephrine. The superior to inferior approach was utilized. Subsequently, with intermittent stereotactic guidance, the stereotactic biopsy needle was advanced into the breast in the region of the mammographic abnormality corresponding to recent diagnostic mammogram. Multiple vacuum assisted core samples were obtained. Sampling was thought to be adequate and the biopsy clip marker was deployed in the region of biopsy. Additional imaging as detailed below was performed. Post procedure routine CC and MLO view mammogram: Post biopsy changes. Biopsy marker clip noted to be in the appropriate location. Patient tolerated the procedure well. No immediatecomplications. IMPRESSION: 1. Technically successful stereotactic guided biopsy of focal asymmetry left breast at 12-1:00 2. Biopsy marker clip deployed 3. Post biopsy mammogram obtained as above Authenticated and ERN
[2024-10-14] MEDS: ALPRAZolam 0.5MG TABLET 0.5 MG PO (08:45)
[2024-10-14] MEDS: LIDOCAINE 1% W/EPI 1:100,000 20ML VIAL IJ (09:15)
[2024-10-14] MEDS: HYDROCODONE/APAP 5/325 MG TABLET 1 TAB PO (12:04)
== END 2024-10-14 23:59 | disposition home or self-care (01) ==
LOC: RAD 07:18
PROVIDERS: PCP Nurse Practitioner Family; Visit Provider Nurse Practitioner Family
DX: R92.8 Other abnormal and inconclusive findings on diagnostic imaging of breast (principal); N63.25 Unspecified lump in the left breast, overlapping quadrants
CPT/HCPCS: 19081; 77065

== ENCOUNTER 2024-10-20 14:08 | Outpatient (CLI) | payer OTHER, SELFPAY ==
[2024-10-20 12:41] LABS: Microscopic, Urine URINE MICROSCOPIC (MICROSCOPIC)
[2024-10-20 13:04] LABS: Appearance,Urine CLEAR (Clear); Bilirubin,Urine Negative (Negative); Blood, Urine Negative (Negative); Color,Urine YELLOW (Yellow); Glucose,Urine (UA) Negative (Negative); Ketones,Urine Negative (Negative); Leukocyte Esterase,Urine 1+ (Negative); Nitrate,Urine Negative (Negative); Protein,Urine Negative (Negative); Specific Gravity, Urine 1.025 (1.005-1.030); Urobilinogen,Urine 0.2 EU/dl (0.2)
[2024-10-20 13:11] LABS: Bacteria,Urine Trace /lpf; Mucus,Urine Trace /lpf; RBC,Urine Occasional #/hpf (0-3); WBC,Urine 20-50 #/hpf (0-3)
[2024-10-20 13:26] LABS: Anion Gap 10.8 mEq/L (5-15); Blood Urea Nitrogen 14 mg/dl (7-17); Calcium 9.3 mg/dl (8.4-10.2); Carbon Dioxide 32 mmol/L (22.0-30.0); Chloride 100 mmol/L (98-107); Chol/HDL Ratio 3.2 (1-3.5); Cholesterol 95 mg/dl (140-200); Estimated Glomerular Filt Rate 129 ml/min (>60); GFR (African American) 156 ML/MIN (>60); Glucose 85 mg/dl (74-100); HDL Cholesterol 30 mg/dl (40-60); Potassium 4.8 mmoL/L (3.5-5.1); Sodium 138 mmol/L (136-145); Triglycerides 220 mg/dl (30-150); VLDL Cholesterol 44 mg/dL (0-40)
[2024-10-20 13:27] LABS: Hemoglobin A1C 6.2 % (4.0-6.0)
[2024-10-20 13:37] LABS: Direct LDL Cholesterol 47.69 mg/dL (100-129)
[2024-10-20 14:10] LABS: Iron 65 ug/dL (37-170)
[2024-10-20 14:19] LABS: Total Iron Binding Capacity 530 ug/dL (265-497)
[2024-10-20 14:46] LABS: Ferritin 12.6 ng/ml (11.1-264)
== END 2024-10-20 23:59 | disposition home or self-care (01) ==
LOC: LAB.DROPOF 14:08
PROVIDERS: PCP Nurse Practitioner Family; Visit Provider Nurse Practitioner Family
DX: E78.5 Hyperlipidemia, unspecified (principal); E11.9 Type 2 diabetes mellitus without complications; D64.9 Anemia, unspecified; Z79.84 Long term (current) use of oral hypoglycemic drugs; Z79.85 Long-term (current) use of injectable non-insulin antidiabetic drugs
CPT/HCPCS: 80048; 80061; 81001; 82728; 83036; 83540; 83550; 87086

== ENCOUNTER 2024-11-29 08:40 | Outpatient (CLI) | payer OTHER, SELFPAY ==
--- NOTE | 2024-11-29 08:41 | CT_ITS ---
FINAL REPORT TECHNIQUE: Axial images were obtained from the lung apex to the mid abdomen by computed tomography. This study was performed with techniques to keep radiation doses as low as reasonably achievable (ALARA). Individualized dose reduction techniques using automated exposure control or adjustment of mA and/or kV according to the patient's size were employed. CLINICAL HISTORY: lung cancer screening previous smoker , quit 5 years ago , previous 2 ppd and smoked for 30 years , currently vapes COMPARISON: 08/21/2023 FINDINGS: CHEST CT LOW DOSE CTDI vol (mGy): 2.90 DLP (mGy-cm): 101.07 There are extensive calcified lymph nodes in the subcarinal region. Paratracheal node measures 1.7 cm, unchanged. The heart is normal in size. There is no pericardial or pleural effusion. Lung window images demonstrate no suspicious infiltrate or nodule. There is a calcified granuloma in the left lower lobe. Limited images of the upper abdomen are unremarkable. IMPRESSION: Lung RADS category 1. Recommend 12 month follow-up low-dose chest CT. Reviewed, Interpreted and Dictated by Honorio Hernandez MD Transcribed by Reema Bhagat Authenticated and [facility]
== END 2024-11-29 23:59 | disposition home or self-care (01) ==
LOC: RAD 08:41
PROVIDERS: PCP Nurse Practitioner Family; Visit Provider Nurse Practitioner Family
DX: Z87.891 Personal history of nicotine dependence (principal)
CPT/HCPCS: 71271

== ENCOUNTER 2025-01-09 14:25 | Outpatient (CLI) | payer OTHER, SELFPAY ==
[2025-01-09 18:21] LABS: Coronavirus 19, PCR Not Detected (NotDetected); Human Rhinovirus Not Detected (NotDetected); Influenza A, PCR Not Detected (NotDetected); Influenza B, PCR Not Detected (NotDetected); Respiratory Syncytial Virus Not Detected (NotDetected)
== END 2025-01-09 23:59 | disposition home or self-care (01) ==
LOC: LAB.DROPOF 01-11 12:36
PROVIDERS: PCP Nurse Practitioner Family; Visit Provider Nurse Practitioner Family
DX: Z20.822 Contact with and (suspected) exposure to COVID-19 (principal); R05.8 Other specified cough; J02.9 Acute pharyngitis, unspecified
CPT/HCPCS: 87631

== ENCOUNTER 2025-04-17 10:33 | Outpatient (CLI) | payer OTHER, SELFPAY ==
--- OUTSIDE RECORDS SUMMARY | 2025-04-17 10:35 | XMS_ITS | Encounter Summary ---
Author Organization Healthcare Address [address] [place] [address] Care Team Providers Care Tariff Publishing Agent Name Role Phone Chris Sandra MD Primary Care Provider [phone] Cholo Arreola DO Primary Care Provider [phone] Encounter Details Date Type Department Care Team (Late st Contact Info) Description 02/16/2024 Orders Only External Location [address] [place] [address] Provider, External Social History Tobacco Use Types Packs/Day Years Used Date Smoking Tobacco: Former Cigarettes 1.5 15 1 11/18/2005 - 09/18/2021 Passive Smoke Exposure: Past Smokeless Tobacco: Current Comments:Vape Alcohol Use Standard Drinks/Week Comments No 0 (1 standard drink = 0.6 oz pur e alcohol) PHQ-2 Answer Date Recorded Patient Health Questionnaire-2 Score 0 10/21/2023 PHQ-2A Answer Date Recorded Patient Health Questionnaire-2 Score 0 04/09/2023 Comments No Sex and Gender Information Value Date Recorded Sex Assigned at Not on file Legal Sex Female 8:43 PM EDT Gender Identity Not on file Sexual Orientation Not on file documented as of this encounter Plan of Treatment Not on file documented as of this encounter Procedures Procedure Name Priority Date/Time Associated Diagnosis Comments XR OUTSIDE IMAGES 02/16/2024 9:31 AM EDT documented in this encounter Results * XR OUTSIDE IMAGES (02/16/2024 9:31 AM EDT) Anatomical Region Laterality Modality Radiographic Lillian ging 02/16/2024 9:31 AM EDT External Provider IMG XR PROCEDURES Final Result documented in this encounter Visit Diagnoses Not on filedocumented in this encounter Additional Health Concerns Assessment Noted Time A fall risk assessment has been complete d for the patient 10/21/2023 8:40 AM EST A Body Mass Index follow-up plan has been documented for the patient 10/21/2023 10:52 AM EST documented as of this encounter Care Teams Tariff Publishing Agent Relationship Specialty Start Date End Date Chris Sandra MD [address] [facility] [place] [address] PCP - General 03/22/21 02/23/24 Cholo Arreola DO [address] [place] [address] PCP - General 02/24/24 documented as of this encounter
--- OUTSIDE RECORDS SUMMARY | 2025-04-17 10:35 | XMS_ITS ---
Author Organization [facility] Address [address] [place], [place] [id number] Care Team Providers Care Integration Aide Name Role Phone Cholo Arreola DO Primary Care Provider [phone] PrEP Status:Active (Active) Start date:12/19/2021 Enrollment date:12/19/2021 Continued Care and Services Coordination
--- OUTSIDE RECORDS SUMMARY | 2025-04-17 10:35 | XMS_ITS | Clinical Summary ---
Author Organization [facility] Address [address] [place] [address] Care Team Providers Care Livestock Nutritionist Name Role Phone Cholo Arreola DO Primary Care Provider Allergies Active Allergy Reactions Criticality Noted Date Comments Chlorhexidine Hives,Itching,Rash Medium 10/14/2021 Codeine Unknown - Patient states they do not know rxn details Low 10/08/2015 Hydrocodone-Ibuprofen Rash Low 09/18/2013 upset stomach , vomiting (says can take individual ingredients alone without problems) upset stomach , vomiting (says can take individual ingredients alone without problems) Naproxen Unknown - Patient states they do not know rxn details Low 10/08/2015 Sulfa Drugs Rash Low 09/18/2013 Acetaminophen-Codeine Other - please document in the comment field Low 09/19/2021 Hydrocodone-Acetaminoph en Other - please document in the comment field Low 09/19/2021 Medications * This document contains information received from the source organization and may not represent a complete record from that organization. ibuprofen 800 MG tablet 11/25/2021 Active cyclobenzaprine (Flexeril) 10 MG tablet 03/03/2022 Active potassium chloride ER (Micro-K) 10 MEQ ER capsule 05/29/2022 Acti ve torsemide (Demadex) 20 MG tablet 05/29/2022 Active Sublocade 100 MG/0.5ML solution prefilled syringe 09/22/2022 Active estradiol (Estrace) 1 MG tablet 09/09/2022 Active estradiol (Estrace) 0.1 MG/GM vaginal cream 09/09/2022 Active amantadine (Symmetrel) 100 MG tablet PT STATES THIS MEDICINE IS A COMPOUND CREAM 11/19/2022 Active diazePAM (Valium) 5 MG tablet 02/16/2023 Active emtricitabine-t enofovir disoproxil fumarate (Truvada) 200-300 MG tabletIndicatio ns: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 30 tablet 2 10/21/2023 Active cholecalciferol 50 MCG (2000 UT) capsule 03/04/2024 Active metFORMIN (Glucophage) 500 MG tablet 11/10/2023 Activ e pantoprazole (Protonix) 40 MG EC tablet 09/01/2023 Active Ozempic, 0.25 or 0.5 MG/DOSE, 2 MG/3ML solution pen-injector 01/06/2024 Active Active Problems Problem Noted Date Diagnosed Date Acute pain of left knee 09/19/2021 Opioid use disorder 09/19/2021 Class 3 severe obesity with body mass index (BMI) of 40.0 to 44.9 in adult 09/19/2021 Resolved Problems Problem Noted Date Diagnosed Date Resolved Date Leukocytosis 09/19/2021 10/29/2021 Knee effusion, left 09/19/2021 10/29/20 Pyogenic arthritis of left knee joint 09/18/2021 10/29/2021 Overview (09/19/2021): Added automatically from request for surgery [id number] Immunizations Immunization Administration Dates Next Due Hep A, Adult 09/23/2021 Influenza, injectable, quadr ivalent, preservative free 07/15/2023,09/24/2022,12/19/2021 Jill COVID-19 Vaccine (Blue Cap) 18+ 05/14/20 21 [employer] COVID-19 Vac cine (Lopez Cap) 12+ years (rosa-sucrose) 12/19/2021 Tdap 04/09/2023 Family History Medical History Relation Name Comments Heart disease Brother 1 Rodney Verdugo Stroke Brother 2 Devon Opioid use disorder Child Arthritis Mother Beti Saba Diabetes Mother Beti Saba Hearing loss Mother Beti Saba Heart disease Mother Beti Saba Diabetes Other Relation Name Status Comments Brother 1 Rodney Matsonberry Brother 2 Devon Child Alive Mother Beti Saba Other Social History Tobacco Use Types Packs/Day Years [...] on file Sexual Orientation Not on file Last Filed Vital Signs Vital Sign Reading Time Taken Comments Blood Pressure 139/80 03/10/2024 9:34 AM EDT Pulse 102 03/10/2024 9:34 AM EDT Temperature 36.7 C (98.1 F) 10/21/2023 8:40 AM EST Respiratory Rate 16 04/09/2023 8:11 AM EDT Oxygen Saturation 94% 03/10/2024 9:34 AM EDT Inhaled Oxygen Concentration - - Weight 125 kg (275 lb 9.2 oz) 03/10/2024 9:34 AM EDT Height 157.5 cm (5' 2 ) 03/10/2024 9:34 AM EDT Body Mass Index 50.4 03/10/2024 9:34 AM EDT Plan of Treatment Health Maintenance Due Date Last Done Comments [facility]-Infant/Child/Adol SDOH Screenings 1969 [facility]- SDOH Screenings 1987 [facility]-Adult SDOH Screenings 1987 [facility]-Hepatitis B Vaccines (1 of 3 - 19+ 3-dose series) 1988 01/07/2023, 12/04/2022, 11/25/2022, Additional history exists [facility]-Pneumococcal Vaccine: 50+ Years (1 of 2 - PCV) 1988 [facility]-Zoster Vaccines (1 of 2) 1988 CT Colonography 2014 Colonoscopy 2014 FIT-DNA 2014 FIT 2014 FOBT 2014 Sigmoidoscopy 2014 [facility]-Colorectal Cancer Screening 2014 [facility]-Breast Cancer Screening 2019 [facility]-Lung Cancer Screening 2019 [facility]-Hepatitis A Vaccines (2 of 2 - Risk 2-dose series) 03/23/2022 09/23/2021 [id number] Vaccine (3 - season) 2024 12/19/2021, 05/14/2021 [facility]-Depression Screening 10/21/2024 10/21/2023 [facility]-Influenza Vaccine (Season Ended) 2025 07/15/2023, 09/24/2022, 12/19/2021 [facility]-DTaP,Tdap,and Td Vaccines (2 - Td or Tdap) 04/09/2033 04/09/2023 [facility]-Hepatitis C Screening Completed 2020, 10/25/2021, 10/25/2021, Additional history exists [facility]-Obesity Intervention Completed 024, 10/21/2023, 07/15/2023, Additional history exists HPV Vaccines Aged Out No longer eligi ble based on patient's age to complete this topic [facility]-HIB Vaccines Aged Out No longer e ligible based on patient's age to complete this topic [facility]-IPV Vaccines Aged Out No longer e ligible based on patient's age to complete this topic [facility]-Rotavirus Vaccines Aged Out No lo nger eligible based on patient's age to complete this topic Procedures Procedure Name Priority Date/Time Associated Diagnosis Comments ACUTE HEPATITIS PANEL Routine 10/25/2021 11:26 AM EST from Last 3 Months or Most Recently Relevant to Health Maintenance Results * (ABNORMAL) Hepatitis panel, acute (10/25/2021 11:26 AM EST) Hepatitis B Surf Antigen Positive(A) Negative 10/25/2021 9:47 PM EST [facility] Hepatitis C Antibody Positive(A) Negative 10/25/2021 9:47 PM EST [facility] Comment: This specimen is being sent for confirmation by RT-PCR. This specimen is being sent for confirmation by RT-PCR. Hepatitis A Antibody IgM Negative Negative 10/25/2021 9:47 PM EST [facility] Hepatitis B Core Antibody IgM Positive(A) Negative 10/25/2021 9:47 PM EST [facility] Blood Venous blood specimen / Unknown 10/25/2021 11:26 AM EST 10/25/2021 12:18 PM EST us Forrest Alejo MD LAB BLOOD ORDERABLES Final Res [facility] [address] [place] [address] from Last 3 Months or Most Recently Relevant to Health Maintenance Insurance [facility] MEDICAID Advance Directives * Full Code (Latest Code Status on File) Date Activated Date Inactivated Comments 09/19/2021 12:42 AM 10/29/2021 3:40 PM Question Answer Comments Patient has decision-making capacity? Yes Care Teams Livestock Nutritionist Relationship Specialty Start Date End Date Cholo Arreola DO [address] [facility] [address] [place] [address] PCP - General 02/24/24
--- OUTSIDE RECORDS SUMMARY | 2025-04-17 10:35 | XMS_ITS | Encounter Summary ---
Author Organization Healthcare Address [address] [place] [id number] Care Team Providers Care Pe Manager Name Role Phone Chris Sandra MD Primary Care Provider [phone] Cholo Arreola DO Primary Care Provider [phone] Encounter Details Date Type Department Care Team ([facility] st Contact Info) Description 09/15/2022 Orders Only External Location [address] [place] [address] Joshua Bernard MD [address] [place] [address] Social History Tobacco Use Types Packs/Day Years Used Date Smoking Tobacco: Former Cigarettes Q uit: 09/18/2021 Smokeless Tobacco: Current Comments:Vape Alcohol Use Standard Drinks/Week Comments No 0 (1 standard drink = 0.6 oz pur e alcohol) PHQ-2 Answer Date Recorded Patient Health Questionnaire-2 Score 0 03/27/2022 Comments No Sex and Gender Information Value Date Recorded Sex Assigned at Not on file Legal Sex Female 8:43 PM EDT Gender Identity Not on file Sexual Orientation Not on file documented as of this encounter Plan of Treatment Not on file documented as of this encounter Procedures Procedure Name Priority Date/Time Associated Diagnosis Comments MR OUTSIDE IMAGES 09/15/2022 3:32 PM EST documented in this encounter Results * MR transfer of outside films (09/15/2022 3:32 PM EST) Anatomical Region Laterality Modality Magnetic Resonan ce 09/15/2022 3:32 PM EST Joshua Bernard MD IMG MRI PROCEDURES Final Result documented in this encounter Visit Diagnoses Not on filedocumented in this encounter Additional Health Concerns Assessment Noted Time A fall risk assessment has been complete d for the patient 12/19/2021 7:53 AM EST documented as of this encounter Care Teams Pe Manager Relationship Specialty Start Date End Date Chris Sandra MD [address] [facility] [place], [place] [id number] PCP - General 03/22/21 02/23/24 Cholo Arreola DO [address] [facility] [address] [place] [address] PCP - General 02/24/24 documented as of this encounter
--- OUTSIDE RECORDS SUMMARY | 2025-04-17 10:36 | XMS_ITS | Data Portability ---
Author Organization [facility] [place] [facility] ADMIN Address [address] [place] [id number] Care Team Providers Care Diploma Pharmacy Technician Name Role Phone PATSY STOCK Primary Care Provider [phone] Assessment No assessment recorded. Plan of Treatment Reminders Order Date Submit Date Provider Last Modified By Organization Details Last Modified Time Details Appointments None recorded. Lab None recorded. Referral None recorded. Procedures None recorded. Surgeries None recorded. Imaging XR, hip, unilateral 2023 024 [email or web address] [facility], [address] [place] [address] [place], [address], 4 09:23:43 XR, pelvis 2023 024 [email or web address] [facility], [address] [place] [address] [place], [address], 4 08:10:58 Medication Orders None recorded. Patient TargetsNo targets recorded. Patient InstructionsNo instructions recorded. Reason for Referral None Reported. Results Created Date Observation Date Name Description Value Unit Range Abnormal Flag Note LastModifiedBy Organization Detail LastModifiedTime 04/12/2004/12/2024 CBC W/O DIFF note See Note Order ing Provi cynthia: Janis Augustine MD Not Available [address] , [place], [address], 04/12/2024 12:01:49 04/12/20 24 04/12/2024 CBC W/O DIFF white blood cell 6.2 10e3/ uL 4.5-13 .0 normal Not Available [place] [address], [place], [address], 04/12/2024 12:01:49 04/12/20 24 04/12/2024 CBC W/O DIFF red blood cell 4.37 10e6/ uL 3.80-5 .10 normal Not Available [place] [address], [place], [address], 04/12/2024 12:01:49 04/12/20 24 04/12/2024 CBC W/O DIFF hemoglobin 11.6 g/dL 11.5-1 5.3 normal Not Available [place] [address], [place], [address], 04/12/2024 12:01:49 04/12/20 24 04/12/2024 CBC W/O DIFF hematocrit 35.5 % 34.0-4 6.0 normal Not Available [place] [address], [place], [address], 04/12/2024 12:01:49 04/12/20 24 04/12/2024 CBC W/O DIFF mean cell volume 81 fL 78.0-9 8.0 normal Not Available [place] [address], [place], [address], 04/12/2024 12:01:49 04/12/20 24 04/12/2024 CBC W/O DIFF mean cell HGB 26.5 pg 25.0-3 5.0 normal Not Available [place] [address], [place], [address], 04/12/2024 12:01:49 04/12/20 24 04/12/2024 CBC W/O DIFF mean cell HGB concentratio n 32.7 g/dL 31.0-3 6.0 normal Not Available [place] [address], [place], [address], 04/12/2024 12:01:49 04/12/20 24 04/12/2024 CBC W/O DIFF red cell distribution width 14.6 % 11.0-1 5.0 normal Not Available [address] , [place], [address], 04/12/2024 12:01:49 04/12/20 24 04/12/2024 CBC W/O DIFF platelet count 240 10e3/ uL 150-40 0 normal Not Available [address] [place], [place], [address], 04/12/2024 12:01:49 04/12/20 24 04/12/2024 CBC W/O DIFF performing lab see note - [facility] R [address] [facility] [address] Not Available [address] [place], [place], [address], 04/12/2024 12:01:49 04/12/20 24 04/12/2024 GLYCO HEMOG LOBIN (HGB A1C) note See Note Order ing Provi cynthia: Janis Augustine MD Not Available [address] [place], [place], [address], 04/12/2024 12:05:04 04/12/20 24 04/12/2024 GLYCO HEMOG LOBIN (HGB A1C) glycohemoglo bin (HGB A1C) 6.0 % 4.5-6. 2 normal Predi abete s: 5.7 - 6.4 Diabe hernesto: >6.4 Glyce andrés contr ol for adult s with diabe hernesto: <7.0 Not Available [address] [place], [place], [address], 04/12/2024 12:05:04 04/12/20 24 04/12/2024 GLYCO HEMOG LOBIN (HGB A1C) performing lab see note - [facility] R [address] [facility] [address] Not Available [address] , [place], [address], 04/12/2024 12:05:04 04/12/20 24 04/12/2024 ELECT ROLYT ES PANEL note See Note Order ing Provi cynthia: Janis Augustine MD Not Available [address] , [place], [address], 04/12/2024 12:09:32 04/12/20 24 04/12/2024 ELECT ROLYT ES PANEL sodium 135 mmol/ L 136-14 5 low Not Available [address] , [place], [address], 04/12/2024 12:09:32 04/12/20 24 04/12/2024 ELECT ROLYT ES PANEL potassium 4.5 mmol/ L 3.5-5. 1 normal Not Available [address] [place], [place], [address], 04/12/2024 12:09:32 04/12/20 24 04/12/2024 ELECT ROLYT ES PANEL chloride 100 mmol/ L 98-107 normal Not Available [address] [place], [place], [address], 04/12/2024 12:09:32 04/12/20 24 04/12/2024 ELECT ROLYT ES PANEL carbon dioxide 31 mmol/ L 24-33 normal Not Available [address] [place], [place], [address], 04/12/2024 12:09:32 04/12/20 24 04/12/2024 ELECT ROLYT ES PANEL anion gap 8.5 mmol/ L 10-20 low Not Available [address] [place], [place], [address], 04/12/2024 12:09:32 04/12/20 24 04/12/2024 ELECT JUAN M ES PANEL performing lab see note ML - [facility] [address] [facility] [address] Not Available [address] , [place], [address], 04/12/2024 12:09:32 04/12/20 24 04/12/2024 BLOOD UREA NITRO GEN note See Note Order ing Provi cynthia: Janis Augustine MD Not Available [address] , [place], [address], 04/12/2024 12:09:32 04/12/20 24 04/12/2024 BLOOD UREA NITRO GEN blood urea nitrogen 9 mg/dL 7-18 normal Not Available [address] , [place], [address], 04/12/2024 12:09:32 04/12/20 24 04/12/2024 BLOOD UREA NITRO GEN performing lab see note ML - [facility] [address] [facility] [address] Not Available [address] , [place], [address], 04/12/2024 12:09:32 04/12/20 24 04/12/2024 CREAT ININE W/GFR note See Note Order ing Provi cynthia: Janis Augustine MD Not Available [address] , [place], [address], 04/12/2024 12:09:33 04/12/20 24 04/12/2024 CREAT ININE W/GFR creatinine 0.67 mg/dL 0.55-1 .02 normal Not Available [address] , [place], [address], 04/12/2024 12:09:33 04/12/20 24 04/12/2024 CREAT ININE W/GFR GFR (estimated) 104 mL/mi n >60 normal [IM JONES NT]: The 2020 CKD-E PI equat ion is now the recom zuleima d stand adolfo. This versi on does not inclu de race, as do the 2008 and 2011 CKD-E PI creat inine and creat inine -cyst atin C equat ions. Pleas e note that the eGFR now repor mian is gener ated by the new 2020 CKD-E PI equat ion, which decre ases the eGFR for black s by up to 10% and incre ases the eGFR for non-b lacks by up to 10% in martin rison to the old equat ion. To martin re a legac y eGFR to a curre nt value , a 2008 CKD-E PI calcu lator is easil y seakasandra hable on the inter net. Calcu lated GFR: This calcu lated GFR is advoc ated by the Natio nal Kidne y Found ation to be used as an indic ator of Chron ic Kidne y Disea se (CKD) . 5 Stage s of Chron ic Kidne y Disea se. Stage 1 90 mL/mi n or more Healt hy kidne ys or Kidne y damag e with cheli l or high GFR detai ls Stage 2 60 to 89 mL/mi n Kidne y damag e and mild decre ase in GFR detai ls Stage 3 30 to 59 mL/mi n Moder ate decre ase in GFR detai ls Stage 4 15 to 29 mL/mi n Sever e decre ase in GFR detai ls Stage 5 Less than 15 mL/mi n On dialy sis or Kidne y failu re Patie nt's clini angely statu s must be consi dered for the care of your patie nt. Not Available [address] , [place], [address], 04/12/2024 12:09:33 04/12/20 24 04/12/2024 CREAT ININE W/GFR performing lab see note - [facility] R [address] [place] [address] Not Available [address] , [place], [address], 04/12/2024 12:09:33 04/12/20 24 04/12/2024 FRUCT OSAMI NE note See Note Order ing Provi cynthia: Janis Augustine MD Not Available [address] , [place], [address], 04/13/2024 14:15:31 04/12/20 24 04/12/2024 FRUCT OSAMI NE fructosamine 210 umol/ L 0-285 Publi shed refer ence inter jayjay for appar ently healt hy subje cts betwe en age 20 and 60 is 205 - 285 umol/ L and in a poorl y contr olled diabe tic popul ation is 228 - 563 umol/ L with a mean of 396 umol/ L. Perfo rmed At: CB, [facility] [place] [address] [facility], [place], [address]34 Eduardo barker, PhD, Phone : [phone] Not Available [address] , [place], [address], 04/13/2024 14:15:31 04/12/20 24 04/12/2024 FRUCT OSAMI NE performing lab see note LC2 - [facility] CLIEN T# [id number] [place] [address] Not Available [address] , [place], [address], 04/13/2024 14:15:31 05/02/20 24 05/02/2024 GLUCO SE POINT OF CARE note See Note Order ing Provi cynthia: Janis Augustine MD Not Available [address] , [place], [address], 05/02/2024 11:22:11 05/02/20 24 05/02/2024 GLUCO SE POINT OF CARE glucose point of care 126 mg/dL 70-99 high Not Available [address] , [place], [address], 05/02/2024 11:22:11 05/02/20 24 05/02/2024 GLUCO SE POINT OF CARE performing lab see note [facility] [place] [address] Not Available [address] [place], [address], 05/02/2024 11:22:11 05/02/20 24 05/02/2024 GLUCO SE POINT OF CARE note See Note Order ing Provi cynthia: Janis Augustine MD Not Available [address] , [place], [address], 05/02/2024 14:42:30 05/02/20 24 05/02/2024 GLUCO SE POINT OF CARE glucose point of care 145 mg/dL 70-99 high Not Available [address] , [place], [address], 05/02/2024 14:42:30 05/02/20 24 05/02/2024 GLUCO SE POINT OF CARE performing lab see note POC - MWPOC Pending sale to [facility] [place] [address] Not Available [address] , [place], [address], 05/02/2024 14:42:30 03/31/20 XR, pelvi s No observ ation record ed. RAFAEL Patel [facility] [address] [place] [address] [place], [address], 03/31/2024 14:58:08 04/12/20 24 04/12/2024 XR, chest , 2 view [facility] Name: LEROY XIONG NIS [address] Phys: Davide BROWN,[place] [address] : 1970 Age: 53 Sex: F Acct: [id number] Loc: SINA PHONE #: Exam Date: 2023 Status : REG CLI FAX #: [phone] Rad# [id number] Unit# [id number] Admit Date: 2023 EXAMS: CPT CODE: [id number] CHEST 2 VIEWS 59808 PA AND LATERA L CHEST, 04/12/20 24: CLINIC AL HISTOR Y: Preope rative examin ation for right total hip arthro plasty . COMPAR IZABELLA: None. FINDIN GS: The cardio medias tinal silhou ette is within normal limits . There are calcif ied left hilar lymph nodes and a calcif ied granul nicholas in the left lower lobe. The lungs are clear bilate rally withou t pleura l fluid or focal consol idatio n. There is mild multil evel degene rative disc diseas e of the thorac ic spine IMPRES MILENA: 1. No eviden ce of acute cardio pulmon chandler diseas e. Electr onical ly Signed by SAURABH GARCIA MD on 2023 at 1519 Report ed and signed by: SAURABH GARCIA MD CC: Anthony Augustine MD; Undefi oswaldo Provid er Dictat ed Date/T keren: 2023 (1519) Techno logist : NANDO ALVAREZ S, R.TRaffy (R) Transc ribed Date/T keren: 2023 (1519) Transc riptio nist: DR.HAG KEYUR Bolden onic Signat ure Date/T keren: 2023 (1519) Printe d Date/T keren: 2023 (1521) BATCH NO: N/A PAGE 1 Signed Report CC'ed Logic: Orderi ng Provid er: DAVIDE GLEASON Attend ing Provid er: DAVIDE GLEASON Referr ing Provid er: DAVIDE GLEASON Consul ting Provid er: DAY[facility] [address] , [place], [address], 04/12/2024 15:27:01 05/02/20 24 05/02/2024 XR, hip, unila teral , 2 or 3 view [facility] Name: LEROY [place]IONG [place] [address] Phys: Davide BROWN,[place] [address] : 1970 Age: 53 Sex: F Acct: [id number] Loc: JUDY PHONE #: Exam Date: 2023 Status : REG [facility] FAX #: Rad# [id number] Unit# [id number] Admit Date: 2023 EXAMS: CPT CODE: [id number] [address] [place] [address] CLINIC AL INFORM ATION: Postop right hip arthro plasty COMPAR IZABELLA: No compar izabella availa ble. FINDIN GS: AP and latera l views obtain ed. 3 images Patien t is status post total right hip arthro plasty . Orthop edic elemen ts appear well-p ositio oswaldo. No eviden ce of compli cation . No signif icant soft tissue abnorm ality. IMPRES MILENA: Normal -appea ring right hip arthro plasty Commun icatio n: Per this dictat ed report This report is genera mian using voice recogn ition comput er softwa re. Inadve rtent errors may have occurr ed while dictat ing report . Common sense approa ch is apprec iated and do not hesita te to call for nehemiah bennetto n when necess chandler. Electr onical ly Signed by Kristine Rivera on 2023 at 1448 Report ed and signed by: HENRIQUE Rivera M.D. CC: Anthony Augustine MD; Undefi oswaldo Provid er Dictat ed Date/T keren: 2023 (1448) Techno logist : ARAMIS WISE Y Transc ribed Date/T keren: 2023 (1448) Transc riptio nist: DR.HAR VARSHA xie Signat ure Date/T keern: 2023 (1448) Printe d Date/T keren: 2023 (1450) BATCH NO: N/A PAGE 1 Signed Report CC'ed Logic: Orderi ng Provid er: DAVIDE GLEASON Attend ing Provid er: DAVIDE GLEASON Referr ing Provid er: DAVIDE GLEASON Consul ting Provid er: DAYAMI Ramírez [email or web address] [address] [facility] , [place], [address], 05/02/2024 14:59:59 06/15/20 24 XR, hip, unila teral No observ ation record ed. RAFAEL Patel [facility] [address] [place] [address] , [place], [address], 06/15/2024 09:02:29 Result Notes None recorded. Medical Equipment None Reported. Medications Name Sig Start Date Stop Date Status Note LastModified by Organization Details LastModified Time cyclobenzap rine 10 mg tablet 03/28 completed Not Available Not Available Not Available amoxicillin 500 mg capsule active Not Available Not Available Not Available furosemide 40 mg tablet active Not Available Not Available Not Available metformin 500 mg tablet active Not Available Not Available Not Available famotidine 10 mg tablet 03/28 completed Not Available Not Available Not Available triamcinolo ne acetonide 0.5 % topical cream active Not Available Not Available Not Available ibuprofen 800 mg tablet active Not Available Not Available Not Available FreeStyle Lancets 28 gauge active Not Available Not Available Not Available phenazopyri dine 200 mg tablet active Not Available Not Available Not Available propranolol ER 60 mg capsule,24 hr,extended release active Not Available Not Available Not Available aspirin 81 mg tablet,fara yed release active Not Available Not Available Not Available ketorolac 10 mg tablet active Not Available Not Available Not Available bisoprolol fumarate 5 mg tablet active Not Available Not Available No t Available cefadroxil 500 mg capsule active Not Available Not Available Not Available oxycodone-a cetaminophe n 5 mg-325 mg tablet active Not Available Not Available No t Available estradiol 1 mg tablet active Not Available Not Available No t Available dicyclomine 20 mg tablet 03/28 completed Not Available Not Available Not Available pantoprazol e 40 mg tablet,fara yed release active Not Available Not Available Not Available metformin 1,000 mg tablet active Not Available Not Available Not Available magnesium citrate oral solution active Not Available Not Available Not Available bumetanide 1 mg tablet 03/28 completed Not Available Not Available Not Available metoprolol succinate ER 25 mg tablet,exte nded release 24 hr active Not Available Not Available Not Available polyethylen e glycol 3350 17 gram/dose oral powder active Not Available Not Available Not Available estradiol 0.01% (0.1 mg/gram) vaginal cream active Not Available Not Available Not Available bromphenira mine-pseudo ephedrine-D M 2 mg-30 mg-10 mg/5 mL oral syrup active Not Available Not Available Not Available diazepam 5 mg tablet active Not Available Not Available No t Available amoxicillin 875 mg-potassiu m clavulanate 125 mg tablet active Not Available Not Available Not Available metaxalone 800 mg tablet 03/28 completed Not Available Not Available Not Available coenzyme Q10 100 mg capsule active Not Available Not Available Not Available cyclobenzap rine 5 mg tablet active Not Available Not Available Not Available cane active Not Available Not Availa ble Not Available nitrofurant oin monohydrate /macrocryst als 100 mg capsule active Not Available Not Available Not Available emtricitabi ne 200 mg-tenofovi r disoproxil fumarate 300 mg tablet 03/28 completed Not Available Not Available Not Available lactulose 10 gram/15 mL oral solution active Not Available Not Available Not Available omega-3 acid ethyl esters 1 gram capsule active Not Available Not Available Not Available chlorhexidi ne gluconate 0.12 % mouthwash active Not Available Not Available No t Available fenofibrate nanocrystal lized 145 mg tablet active Not Available Not Available No t Available FreeStyle Lite Meter kit active Not Available Not Available Not Available FreeStyle Lite Strips active Not Available Not Available Not Available FeroSul 325 mg (65 mg iron) tablet active Not Available Not Available Not Available Vitamin D3 50 mcg (2,000 unit) capsule active Not Available Not Available Not Available Sublocade 300 mg/1.5 mL solution,ex tended release subcutaneou s syringe active Not Available Not Available No t Available Sublocade 100 mg/0.5 mL solution,ex tended release subcutaneou s syringe INJECT 100MG SUBCUTANE OUSLY ONCE MONTHLY 03/28 completed Not Available Not Available Not Available Ozempic 1 mg/dose (4 mg/3 mL) subcutaneou s pen injector active Not Available Not Available Not Available Ozempic 2 mg/dose (8 mg/3 mL) subcutaneou s pen injector active Not Available Not Available Not Available Ozempic 0.25 mg or 0.5 mg (2 mg/3 mL) subcutaneou s pen injector 03/28 completed Not Available Not Available Not Available Brixadi Monthly 96 mg/0.27 mL solution,ex tend.rel. subcut.syri nge Inject 96 mg subcutane ously every four weeks active Not Available Not Available No t Available Vitals Date Recorded Body weight Body mass index (BMI) Body height Provider Name and Address Organization Details Last Updated DateTime 03/31/2024 258349.88 g 48.9 kg/m2 157.48 cm Bhavya Flanagan s [facility] [place] 03/31/2024 13:47:16 Date Recorded Body height Provider Name an d Address Organization Details Last Updated DateTime 06/15/2024 157.48 cm Elena Johnson [facility] [place] 06/15/2024 09:01:35 Social History Question Answer Notes LastModified by Organizat ion Details LastModified Time Tobacco Smoking Status Former Smoker Bhavya spence, [facility] [place] 03/31/2024 13:53:10 Do You Have An Advance Directive? No Information not available 03/31/2024 Are You Blind Or Do You Have Difficulty Seeing? No Information not available 03/31/2024 What Was The Date Of Your Most Recent Tobacco Screening? 03/28/2024 Information not available 03/31/2024 Are You Passively Exposed To Smoke? No Information not available 03/31/2024 How Many Years Have You Smoked Tobacco? 30 Information not available 03/31/2024 Sex: Female Functional Status Question Answer Note LastModified by Organizat ion Details LastModified Time Do you use any illicit or recreational drugs? No Information not available 03/31/2024 What is your level of alcohol consumption? None Information not available 03/31/2024 What is your exercise level? Occasional Information not available 03/31/2024 Mental Status Question Answer Note LastModified by Organization D etails LastModified Time Do you feel stressed (tense, restless, nervous, or anxious, or unable to sleep at night)? [id number] Information not available 03/31/2024 Family History Relationship Description Onset Age of this Age Resolved Age Notes LastModified by Organization Details LastModified Time Mother Disorder of endocrine system pt. added direct ly (03/28) API-13 Not available 03/28/2024 14:16:17 Mother Obesity pt. added direct ly (03/28) API-13 Not available 03/28/2024 14:17:42 Brother Myocardial infarction pt. added direct ly (03/28) [email or web address]-13 Not available 03/28/2024 14:16:43 Brother Blood coagulation disorder pt. added direct ly (03/28) [email or web address]-13 Not available 03/28/2024 14:16:57 Son Headache pt. added direct ly (03/28) API-13 Not available 03/28/2024 14:17:09 Maternal Grandmother Obesity pt. added direct ly (03/28) API-13 Not available 03/28/2024 14:17:43 Maternal Aunt Obesity pt. added direct ly (03/28) API-13 Not available 03/28/2024 14:17:43 Medical History Condition Response Diabetes Y Obesity Y Substance Abuse Y Arthritis Y Rheumatoid Arthritis Y Gynecological History Statement/Question Response Menses Monthly N Age at Menarche 8 Date of LMP 12/14/2023 Sexually Active? N Obstetrics History GPAL:G 0 P 0 0 0 0 Past Encounters Encounter ID Performer Location Encounter Start Date Encounter Closed Date Diagnosis/Indication Diagnosis SNOMED-CT Code Diagnosis ICD10 Code Diagnosis Note [id number] Anthony Augustine MD [facility] [address] [place] [id number] 03/31/2024 13:37:38 03/31/2024 14:57:50 Osteoarthritis of right hip joint 2174257914 30653 M16.11 [id number] PABLO DRAKE [facility] [address] [phone] 05/16/2024 14:18:56 05/16/2024 15:15:21 Follow-up orthopedic assessment 991577123 Z47.89 History of total replacement of left hip joint 4516184700 110723 Z96.014 [id number] Anthony Augustine MD [facility] [place] [phone] 06/15/2024 08:47:41 06/15/2024 09:21:22 Follow-up orthopedic assessment 119067969 Z47.89 Health Concerns Section Related Observation LastModified by Organization Detai ls LastModified Time None Recorded Concern Status LastModified by Organization Details LastModified Time None Recorded Advance Directives Directive N: Payers Insurance Date Sequence Insurance Name Policy Number Policy Whitehead Covered Member ID Whitehead Member ID Guarantor Name 11/14/2024 1 [employer] [facility] (MEDICAID HMO) Mary Xiong [id number] Mary Xiong 10/28/2024 1 [facility] (MEDICAID HMO) Mary Xiong [id number] Mary Xiong Notes Date Note Type Note Provider Name and Address Organization Details Recorded Time 03/31/2024 text/html Right hip painDO O: 2 years est.C/O groin pain, locking and grinding of hipAmbulating with walker and caneRight hip injection under fluoro- over a year ago, made pain worseHas lost 30 pounds, doing elliptical but is having a lot of painWas told by [facility] that she weighed too much to do THRTaking Ibu 800 mg TID, Diazepam PRNPt states she is a recovering addict, has been clean for 4 yearsPt has an apt on 04/18/24 with PCP to do repeat labs, check A1C (was 68 in December)E1AP Right hip/pelvis x-ray [facility]. Hosp. 4.9.24: No acute abnormality of right hip. Severe deg. 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 Onset: 2 years est.PCP: Patsy Borjas: [facility]-Had a stress test that was normal (last year)- unsure of drDM: BorderlineBlood Thinner: NoPain: Better: legs elevated with sitting on pillows/Worse: Sleeping, walkingDistance Walkin stepsSteps: 0 without pain, can do a couple if holding onto somethingAdaptive: Walking without painROM: PoorHome Health: No preferenceWalker: Has oneBSC: Has oneMetal Allergy: bulmaro- allergic reaction from 1988Assistive Device: Uses walker and caneInjections: 1 year ago est.NSAIDS: Ibuprofen without much relief PABLO DRAKE, JUAN [address] [place] [address],[address], [place], [address], [facility] [place] 04/21/2024 09:13:44 05/16/2024 text/html Pt is here for 2 week post op left JULIETTE. Her incision line is w/o infection. Her steri-strips are intact. She has some questions about PT. Doing well-E1SF PABLO DRAKE, JUAN [address] [facility], [place], [address], [facility] [place] 05/16/2024 16:16:21 06/15/2024 text/html Pt is here for 6 week f/u of her Rt JULIETTE. She reports she is doing well. Her incision is w/o redness or infection-E2SF PABLO DRAKE, JUAN [address] [place] [address],[address], [place], [address], [facility] & [place] 06/15/2024 09:22:14 OBGyn Episode No OBEpisode recorded.
--- OUTSIDE RECORDS SUMMARY | 2025-04-17 10:36 | XMS_ITS | Clinical Summary ---
Author Organization [facility] Address [address] [place] [address] Care Team Providers Care Community Affairs Manager Name Role Phone Pcp, No Primary Care Provider [phone] Source Comments This information has been disclosed to you from confidential records protectedfrom disclosure by state law. You shall make no further disclosure of thisinformation without the specific, written, and informed release of theindividual to whom it pertains, or as otherwise permitted by law. A generalauthorization for the release of medical or other information is not sufficientfor the purposes of therelease of HIV test results or diagnoses. [id number] Social History Tobacco Use Types Packs/Day Years Used Date Smoking Tobacco: Never Assessed Comments Unknown Sex and Gender Information Value Date Recorded Sex Assigned at Not on file Legal Sex Female 11:04 PM EDT Gender Identity Not on file Sexual Orientation Not on file Last Filed Vital Signs Vital Sign Reading Time Taken Comments Blood Pressure 112/44 02/06/2018 11:18 PM EDT Pulse 103 02/06/2018 11:18 PM EDT Temperature 37.2 C (99 F) 02/06/2018 11:18 PM EDT Respiratory Rate 18 02/06/2018 11:18 PM EDT Oxygen Saturation 96% 02/06/2018 11:18 PM EDT Inhaled Oxygen Concentration 96% 02/06/2018 1 1:18 PM EDT Weight - - Height - - Body Mass Index - - Plan of Treatment Not on file Insurance John [address] [place], [place] [id number] [facility] Care Teams Community Affairs Manager Relationship Specialty Start Date End Date Pcp, No No Address PCP - General Pediatrics 02/06/18
--- OUTSIDE RECORDS SUMMARY | 2025-04-17 10:36 | XMS_ITS | Encounter Summary ---
Author Organization Healthcare Address [address] [place] [address] Care Team Providers Care Quality Tech Name Role Phone Chris Sandra MD Primary Care Provider [phone] Chool Arreola DO Primary Care Provider [phone] Reason for Visit * Reason Comments Med Refill Encounter Details Date Type Department Care Team (Late st Contact Info) Description 11/25/2022 Refill [facility] [place] [address] Jo Pagan MD [address] [facility] 100 [place] [address] Chronic viral hepatitis B without delta agent and without coma (CMS/HCC); Exposure to HIV Social History Tobacco Use Types Packs/Day Years Used Date Smoking Tobacco: Former Cigarettes Q uit: 09/18/2021 Smokeless Tobacco: Current Comments:Vape Alcohol Use Standard Drinks/Week Comments No 0 (1 standard drink = 0.6 oz pur e alcohol) PHQ-2 Answer Date Recorded Patient Health Questionnaire-2 Score 0 09/24/2022 Comments No Sex and Gender Information Value Date Recorded Sex Assigned at Not on file Legal Sex Female 8:43 PM EDT Gender Identity Not on file Sexual Orientation Not on file documented as of this encounter Plan of Treatment Not on file documented as of this encounter Visit Diagnoses Diagnosis Chronic viral hepatitis B without delta agent and without coma (CMS/HCC) Exposure to HIV Contact with or exposure to other viral diseases documented in this encounter Additional Health Concerns Assessment Noted Time A fall risk assessment has been complete d for the patient 12/19/2021 7:53 AM EST documented as of this encounter Care Teams Quality Tech Relationship Specialty Start Date End Date Chris Sandra MD [address] [facility] [place] [address] PCP - General 03/22/21 02/23/24 Cholo Arreola DO [facility] [address] [place] [address] PCP - General 02/24/24 documented as of this encounter
--- OUTSIDE RECORDS SUMMARY | 2025-04-17 10:36 | XMS_ITS | Encounter Summary ---
Author Organization Healthcare Address [address] [id number] Care Team Providers Care Cook Restaurant Name Role Phone Chris Sandra MD Primary Care Provider [phone] Cholo Arreola DO Primary Care Provider [phone] Encounter Details Date Type Department Care Team ([facility] st Contact Info) Description 05/30/2022 Orders Only External Location [address] [place] [address] Joshua Bernard MD [address] [place] [address] Social History Tobacco Use Types Packs/Day Years [...] Date/Time Associated Diagnosis Comments XR OUTSIDE IMAGES 05/30/2022 8:42 AM EDT documented in this encounter Results * XR OUTSIDE IMAGES (05/30/2022 8:42 AM EDT) Anatomical Region Laterality Modality Radiographic Lillian ging 05/30/2022 8:42 AM EDT Joshua Bernard MD IMG XR PROCEDURES Final Result documented in this encounter Visit Diagnoses Not on filedocumented in this encounter Additional Health Concerns Assessment Noted Time A fall risk assessment has been complete d for the patient 12/19/2021 7:53 AM EST documented as of this encounter Care Teams Cook Restaurant Relationship Specialty Start Date End Date Chris Sandra MD [address] [facility] [place] [address] PCP - General 03/22/21 02/23/24 Cholo Arreola DO [facility] [address] [place] [address] PCP - General 02/24/24 documented as of this encounter
--- OUTSIDE RECORDS SUMMARY | 2025-04-17 10:36 | XMS_ITS | Encounter Summary ---
Author Organization Healthcare Address [address] [place] [address] Care Team Providers Care Market Intelligence Consultant Name Role Phone Chris Sandra MD Primary Care Provider [phone] Cholo Arreola DO Primary Care Provider [phone] Reason for Visit * Reason Comments Med Refill Encounter Details Date Type Department Care Team (Late st Contact Info) Description 10/22/2022 Refill [facility] [address] [place] [address] Jo Pagan MD [address] [place] [address] [address] [place] [address] Chronic viral hepatitis B without delta agent [...] on file Sexual Orientation Not on file COVID-19 Exposure Response Date Recorded In the last 10 days, have yo u been in contact with someone who was confirmed or suspected to have Coronavirus/COVID-19? No / Unsure 09/23/2022 10:25 AM EST documented as of this encounter Plan of [...] documented as of this encounter Care Teams Market Intelligence Consultant Relationship Specialty Start Date End Date Chris Sandra MD [address] [facility] [place] [address] PCP - General 03/22/21 02/23/24 Cholo Arreola DO [address] [place] [address] PCP - General 02/24/24 documented as of this encounter
--- OUTSIDE RECORDS SUMMARY | 2025-04-17 10:36 | XMS_ITS | Clinical Summary ---
Author Organization [facility] Address [address] [place] [address] Phone Care Team Providers Care Netbackup Administrator Name Role Phone Hernandez Camarena MD, Michael Campbell Primary Care Provid er Allergies Active Allergy Reactions Criticality Noted Date Comments Sulfa (Sulfonamide Antibiotics) 09/18/2013 Hydrocodone-Ibuprofen 09/18/2013 upset stomach , vomiting (says can take individual ingredients alone without problems) Medications ALPRAZolam (XANAX) 0.5 mg tablet Take by mouth 3 times daily. Active naproxen (NAPROSYN) 500 mg tablet Take 1 Tab by mouth every 12 hours as needed for Pain. 20 Tab 0 09/18/2013 Active Surgical History Surgery Date Site/Laterality Comments HYSTERECTOMY Social History Tobacco Use Types Packs/Day Years Used Date Smoking Tobacco: Every Day Cigarettes Alcohol Use Standard Drinks/Week Comments No 0 (1 standard drink = 0.6 oz pur e alcohol) Comments Unknown Sex and Gender Information Value Date Recorded Sex Assigned at Not on file Legal Sex Female 7:34 AM EDT Gender Identity Not on file Sexual Orientation Not on file Obstetrics History Last Filed Vital Signs Vital Sign Reading Time Taken Comments Blood Pressure 119/62 09/18/2013 9:42 PM EST Pulse 89 09/18/2013 9:42 PM EST Temperature 36.9 C (98.5 F) 09/18/2013 8:46 PM EST Respiratory Rate 20 09/18/2013 8:46 PM EST Oxygen Saturation 97% 09/18/2013 9:42 PM EST Inhaled Oxygen Concentration - - Weight 90.7 kg (200 lb) 09/18/2013 8:46 PM EST Height 154.9 cm (5' 1 ) 09/18/2013 8:46 PM EST Body Mass Index 37.79 09/18/2013 8:46 PM EST Plan of Treatment Health Maintenance Due Date Last Done Comments Annual Wellness Exam 1972 DTaP/TDaP/Td (1 - Tdap) 1988 Hepatitis B Vaccine (1 of 3 - 19+ 3-dose series) 1988 Cologuard 2014 Colon Cancer Screening 2014 Colonoscopy 2014 FIT 2014 Sigmoidoscopy 2014 Virtual Colonography 2014 Pneumococcal Vaccine 50+ (1 of 1 - PCV) 2019 Zoster (1 of 2) 2019 COVID-19 Vaccine (2 - 2023-2 5 season) 2024 12/19/2021 Influenza Vaccine (Season Ended) 2025 09/24/2022, 12/19/2021 Meningococcal B Vaccine Aged Out No l onger eligible based on patient's age to complete this topic Care Teams Netbackup Administrator Relationship Specialty Start Date End Date Michael Ng Sr., MD [address] [place] [address] [place] [id number] PCP - General Track Laminating Machine Tender 09/18/13
--- NOTE | 2025-04-17 10:45 | MM_ITS ---
PROCEDURE INFORMATION: Exam: MG Left Diagnostic Breast Tomosynthesis Exam date and time: 04/17/2025 10:45 AM Age: 54 years old Clinical indication: Short-term radiographic followup; history of benign left breast biopsy. TECHNIQUE: Imaging protocol: Left Diagnostic tomosynthesis and 2D mammography including computer-aided detection (CAD) when performed. Unilateral or bilateral exam. COMPARISON: 1. MG MM CLIP PLACEMENT LT 10/14/2024 9:40 AM 2. MG MM STEREOTACTIC LOC LT 10/14/2024 8:46 AM FINDINGS: MAMMOGRAPHY: Breast composition: There are scattered areas of fibroglandular density. Breast mammogram findings: A biopsy tissue marker is noted within a smoothly circumscribed oval low-density mass in the left upper outer quadrant that measures 1.1 cm. There is no new or suspicious mass, unexplained distortion, or suspicious calcifications. IMPRESSION: 1. No mammographic evidence of malignancy. Benign biopsy changes. 2. Annual bilateral mammographic screening is recommended unless otherwise clinically indicated. ASSESSMENT: BI-RADS Category 2: Benign.
== END 2025-04-17 23:59 | disposition home or self-care (01) ==
LOC: RAD 10:33
PROVIDERS: PCP Nurse Practitioner Family; Visit Provider Nurse Practitioner Family
DX: N63.21 Unspecified lump in the left breast, upper outer quadrant (principal); R92.322 Mammographic fibroglandular density, left breast
CPT/HCPCS: 77061; 77065; G0279

== ENCOUNTER 2025-04-20 15:47 | Outpatient (CLI) | payer OTHER, SELFPAY ==
[2025-04-20 14:23] LABS: Microscopic, Urine URINE MICROSCOPIC (MICROSCOPIC)
[2025-04-20 14:57] LABS: Basophils % 0.3 % (0.1-2.0); Eosinophils # 0.2 Kmm3 (0.0-0.4); Eosinophils % 3.2 % (0.1-12.0); Hematocrit 36.6 % (37.0-47.0); Hemoglobin 11.3 g/dL (12.2-16.2); Immature Granulocytes # 0.02 10^3uL; Immature Granulocytes % 0.3 %; Lymphocytes % 14.3 % (10-50); Mean Corpuscular HGB Conc 30.9 g/dL (31.8-35.4); Mean Corpuscular Volume 84.1 fl (81-99); Monocytes # 0.6 K/mm3 (0.1-1.0); Monocytes % 9.3 % (1.7-9.3); Neutrophils % 72.6 % (37.0-80.0); Nucleated Red Blood Cells # 0 10^3/uL; Nucleated Red Blood Cells % 0 %; Platelet Count 249 K/mm3 (142-424); Red Blood Count 4.35 M/mm3 (4.20-5.40); Red Cell Distribution Width 14.9 % (11.5-17.5); Red Cell Distribution Width-SD 45.4 fL; White Blood Count 6.9 K/mm3 (4.8-10.8)
[2025-04-20 15:11] LABS: Hemoglobin A1C 5.8 % (4.0-6.0)
[2025-04-20 15:14] LABS: Alanine Aminotransferase 21 U/L (12-78); Albumin/Globulin Ratio 1.5 (1.1-1.8); Alkaline Phosphatase 80 U/L (38-126); Anion Gap 11.3 mEq/L (5-15); Aspartate Amino Transferase 36 U/L (14-36); Bilirubin,Total 0.3 mg/dl (0.2-1.3); Blood Urea Nitrogen 18 mg/dl (7-17); Calcium 9.6 mg/dl (8.4-10.2); Carbon Dioxide 33 mmol/L (22.0-30.0); Chloride 97 mmol/L (98-107); Chol/HDL Ratio 3.6 (1-3.5); Cholesterol 98 mg/dl (140-200); Estimated Glomerular Filt Rate 74 ml/min (>60); GFR (African American) 90 ML/MIN (>60); Globulin 2.6 g/dL (1.3-3.2); Glucose 79 mg/dl (74-100); HDL Cholesterol 27 mg/dl (40-60); Potassium 4.3 mmoL/L (3.5-5.1); Sodium 137 mmol/L (136-145); Total Protein,Serum 6.6 g/dl (6.3-8.2); Triglycerides 174 mg/dl (30-150); VLDL Cholesterol 35 mg/dL (0-40)
[2025-04-20 15:23] LABS: Creatinine,Urine Random 18 mg/dL (Not Estab.); Microalbumin < 6.000 mg/L (0-16.7)
[2025-04-20 15:24] LABS: Direct LDL Cholesterol 36.88 mg/dL (100-129)
[2025-04-20 15:30] LABS: Free T4 (Free Thyroxine) 1.56 ng/dl (0.78-2.19)
[2025-04-20 15:44] LABS: Appearance,Urine CLEAR (Clear); Bilirubin,Urine Negative (Negative); Blood, Urine Negative (Negative); Color,Urine YELLOW (Yellow); Glucose,Urine (UA) Negative (Negative); Ketones,Urine Negative (Negative); Leukocyte Esterase,Urine 2+ (Negative); Nitrate,Urine Negative (Negative); PH,Urine 5.5 (5.0-8.5); Protein,Urine Negative (Negative); Urobilinogen,Urine 0.2 EU/dl (0.2)
[2025-04-20 15:46] LABS: Thyroid Stimulating Hormone 2.87 uIU/mL (0.465-4.68)
--- OUTSIDE RECORDS SUMMARY | 2025-04-20 15:49 | XMS_ITS | Encounter Summary ---
Author Organization Healthcare Address [address] [id number] Care Team Providers Care Fishing Tackle Repairer Name Role Phone Chris Sandra MD Primary Care Provider [phone] Cholo Arreola DO Primary Care Provider [phone] Encounter Details Date Type Department Care Team ([facility] st Contact Info) Description 05/30/2022 Orders Only External Location [address] [place] [address] Joshua Bernard MD [address] [place] [address] Social History Tobacco Use Types Packs/Day Years [...] documented as of this encounter Care Teams Fishing Tackle Repairer Relationship Specialty Start Date End Date Chris Sandra MD [address] [facility] [place] [address] PCP - General 03/22/21 02/23/24 Cholo Arreola DO [facility] [address] [place] [address] PCP - General 02/24/24 documented as of this encounter
--- OUTSIDE RECORDS SUMMARY | 2025-04-20 15:49 | XMS_ITS | Clinical Summary ---
Author Organization [facility] Address [address] [place] [address] Phone Care Team Providers Care Feedlot Manager Name Role Phone Hernandez Camarena MD, Michael [...] age to complete this topic Care Teams Feedlot Manager Relationship Specialty Start Date End Date Michael Ng Sr., MD [address] [place] [address] [place] [phone] PCP - General Engine Lathe Set Up Operator 09/18/13
--- OUTSIDE RECORDS SUMMARY | 2025-04-20 15:49 | XMS_ITS | Encounter Summary ---
Author Organization Healthcare Address [address] [place] [address] Care Team Providers Care Welt Pocket Machine Operator Name Role Phone Chris Sandra MD Primary Care Provider [phone] Cholo Arreola DO Primary Care Provider [phone] Reason for Visit * Reason Comments Med Refill Encounter Details Date Type Department Care Team (Late st Contact Info) Description 11/25/2022 Refill [facility] [place] [address] Jo Pagan MD [address] [facility] 100 [place] [address] Chronic viral hepatitis B without [...] documented as of this encounter Care Teams Welt Pocket Machine Operator Relationship Specialty Start Date End Date Chris Sandra MD [address] [facility] [place] [address] PCP - General 03/22/21 02/23/24 Cholo Arreola DO [facility] [address] [place] [address] PCP - General 02/24/24 documented as of this encounter
--- OUTSIDE RECORDS SUMMARY | 2025-04-20 15:49 | XMS_ITS | Encounter Summary ---
Author Organization Healthcare Address [address] [place] [address] Care Team Providers Care Packaging Sales Representative Name Role Phone Chris Sandra MD Primary Care Provider [phone] Cholo Arreola DO Primary Care Provider Reason for Visit * Reason Comments Med Refill Encounter Details Date Type Department Care Team (Late st Contact Info) Description 10/22/2022 Refill [facility] [address] [place] [address] Jo Pagan MD [address] [place] [address] [address] [place] [address] Chronic viral hepatitis B without delta agent [...] documented as of this encounter Care Teams Packaging Sales Representative Relationship Specialty Start Date End Date Chris Sandra MD [address] [facility] [place] [address] PCP - General 03/22/21 02/23/24 Cholo Arreola DO [address] [place] [address] PCP - General 02/24/24 documented as of this encounter
--- OUTSIDE RECORDS SUMMARY | 2025-04-20 15:49 | XMS_ITS ---
Author Organization [facility] Address [address] [place], [place] [address] Care Team Providers Care Director Strategic Account Management Name Role Phone Cholo Arreola DO Primary Care Provider [phone] PrEP Status:Active (Active) Start date:12/19/2021 Enrollment date:12/19/2021 Continued Care and Services Coordination
--- OUTSIDE RECORDS SUMMARY | 2025-04-20 15:49 | XMS_ITS | Clinical Summary ---
Author Organization [facility] Address [address] [place] [address] Care Team Providers Care Plan Rep Name Role Phone Pcp, No Primary Care [...] therelease of HIV test results or diagnoses. [id number] Social History Tobacco Use Types Packs/Day [...] file Insurance [address] [place], [place] [id number] [facility] Care Teams Plan Rep Relationship Specialty Start Date End Date Pcp, No No Address PCP - General Pediatrics 02/06/18
--- OUTSIDE RECORDS SUMMARY | 2025-04-20 15:49 | XMS_ITS | Clinical Summary ---
Author Organization [facility] Address [address] [place] [address] Care Team Providers Care Pharmacy Data Analyst Name Role Phone Cholo Arreola DO Primary Care Provider [phone] Allergies Active Allergy Reactions Criticality Noted Date [...] (09/19/2021): Added automatically from request for surgery [id number] Immunizations Immunization Administration Dates Next Due Hep A, Adult 09/23/2021 Influenza, injectable, quadr ivalent, preservative free 07/15/2023,09/24/2022,12/19/2021 Jill COVID-19 Vaccine (Blue Cap) 18+ 05/14/20 21 Luxanova-BioNTEverlane COVID-19 Vac cine (Lopez Cap) 12+ years [...] 2 - Risk 2-dose series) 03/23/2022 09/23/2021 [id number] Vaccine (3 - season) 2024 12/19/2021, 05/14/2021 [...] ORDERABLES Final Res [facility] [address] [place] [address] from Last 3 Months or Most Recently Relevant to Health Maintenance Insurance [facility] MEDICAID Advance Directives * Full Code (Latest Code Status on File) Date Activated Date Inactivated Comments 09/19/2021 12:42 AM 10/29/2021 3:40 PM Question Answer Comments Patient has decision-making capacity? Yes Care Teams Pharmacy Data Analyst Relationship Specialty Start Date End Date Cholo Arreola DO [address] [facility] [address] [place] [address] PCP - General 02/24/24
--- OUTSIDE RECORDS SUMMARY | 2025-04-20 15:49 | XMS_ITS | Encounter Summary ---
Author Organization Healthcare Address [address] [place] [address] Care Team Providers Care Rn Radiology Name Role Phone Chris Sandra MD Primary Care Provider [phone] Cholo Arreola DO Primary Care Provider [phone] Encounter Details Date Type Department Care Team (Late st Contact Info) Description 02/16/2024 Orders Only External Location [address] [place] [address] Provider, External Social History Tobacco Use Types [...] documented as of this encounter Care Teams Rn Radiology Relationship Specialty Start Date End Date Chris Sandra MD [address] [facility] [place] [address] PCP - General 03/22/21 02/23/24 Cholo Arreola DO [address] [place] [address] PCP - General 02/24/24 documented as of this encounter
--- OUTSIDE RECORDS SUMMARY | 2025-04-20 15:49 | XMS_ITS | Encounter Summary ---
Author Organization Healthcare Address [address] [id number] Care Team Providers Care Research And Development Researcher Name Role Phone Chris Sandra MD Primary Care Provider [phone] Cholo Arreola DO Primary Care Provider [phone] Encounter Details Date Type Department Care Team ([facility] st Contact Info) Description 09/15/2022 Orders Only External Location [address] [place] [address] Joshua Bernard MD [address] [place] [address] Social History Tobacco Use Types Packs/Day Years [...] documented as of this encounter Care Teams Research And Development Researcher Relationship Specialty Start Date End Date Chris Sandra MD [address] [facility] [place], [place] [phone] PCP - General 03/22/21 02/23/24 Cholo Arreola DO [facility] [address] [place] [address] PCP - General 02/24/24 documented as of this encounter
[2025-04-20 16:05] LABS: Vitamin B12 374 pg/mL (239-931)
[2025-04-20 16:15] LABS: Bacteria,Urine Trace /lpf
[2025-04-20 16:38] LABS: Iron 48 ug/dL (37-170)
[2025-04-20 16:48] LABS: Total Iron Binding Capacity 438 ug/dL (265-497)
== END 2025-04-20 23:59 | disposition home or self-care (01) ==
LOC: LAB.DROPOF 15:48
PROVIDERS: PCP Nurse Practitioner Family; Visit Provider Nurse Practitioner Family
DX: E11.9 Type 2 diabetes mellitus without complications (principal); D50.9 Iron deficiency anemia, unspecified; K59.00 Constipation, unspecified; L40.0 Psoriasis vulgaris; M06.30 Rheumatoid nodule, unspecified site; M06.9 Rheumatoid arthritis, unspecified; E66.01 Morbid (severe) obesity due to excess calories; E55.9 Vitamin D deficiency, unspecified; Z99.89 Dependence on other enabling machines and devices; I89.0 Lymphedema, not elsewhere classified; E78.5 Hyperlipidemia, unspecified; K21.9 Gastro-esophageal reflux disease without esophagitis; Z87.898 Personal history of other specified conditions; R41.3 Other amnesia; G47.33 Obstructive sleep apnea (adult) (pediatric); I99.9 Unspecified disorder of circulatory system; Z87.891 Personal history of nicotine dependence; Z79.899 Other long term (current) drug therapy
CPT/HCPCS: 80053; 80061; 81001; 82043; 82306; 82570; 82607; 82728; 83036; 83540; 83550; 84156; 84439; 84443; 85025; 87086

== ENCOUNTER 2025-07-13 11:28 | Outpatient (CLI) | payer OTHER, SELFPAY ==
--- NOTE | 2025-07-13 11:30 | XR_ITS ---
FINAL REPORT TECHNIQUE: Chest PA & Lateral CLINICAL HISTORY: dyspnea, cough, wheezing x 4 days COMPARISON: None FINDINGS: 2 views of the chest were performed. The heart size is normal. The mediastinum is within normal limits. There is no acute cardiopulmonary process. There are no pleural effusions. There is no pneumothorax. The bony thorax appears intact. IMPRESSION: No acute cardiopulmonary process. Reviewed, Interpreted and Dictated by Honorio Hernandez MD Transcribed by Karly Culp Authenticated and . [facility]
--- OUTSIDE RECORDS SUMMARY | 2025-07-13 11:38 | XMS_ITS | Clinical Summary ---
Author Organization [facility] Address [address] [place] [address] Care Team Providers Care News Intern Name Role Phone No Pcp, [facility] Primary Care Provider Unavailabl e Source Comments [facility] is fully rolled out with thefollowing exceptions:General Clinical Research [facility] Social History Tobacco Use Types Packs/Day Years Used Date Smoking Tobacco: Never Assessed Comments Unknown Sex and Gender Information Value Date Recorded Sex Assigned at Not on file Legal Sex Female 10:11 PM EDT Gender Identity Not on file Sexual Orientation Not on file Last Filed Vital Signs Vital Sign Reading Time Taken Comments Blood Pressure 135/59 02/06/2018 10:39 PM EDT Pulse 110 02/06/2018 10:45 PM EDT Temperature - - Respiratory Rate 12 02/06/2018 10:45 PM EDT Oxygen Saturation 96% 02/06/2018 10:45 PM EDT Inhaled Oxygen Concentration - - Weight - - Height - - Body Mass Index - - Plan of Treatment Health Maintenance Due Date Last Done Comments MMR IMMUNIZATION (1 of 1 - S tandard series) 1970 DTAP/Tdap/Td IMMUNIZATION (1 - Tdap) 1976 VARICELLA IMMUNIZATION (1 of 2 - 13+ 2-dose series) 1982 HEPATITIS B IMMUNIZATION (1 of 3 - 19+ 3-dose series) 1988 COVID-19 Vaccine ( - 2023-2 5 season) 2024 AMB SEASONAL FLU VACCINE (#1) 09/09/2025 HIB IMMUNIZATION Aged Out No longer e ligible based on patient's age to complete this topic HPV IMMUNIZATION Aged Out No longer e ligible based on patient's age to complete this topic IPV IMMUNIZATION Aged Out No longer e ligible based on patient's age to complete this topic MCV4 IMMUNIZATION Aged Out No longer eligible based on patient's age to complete this topic MENINGOCOCCAL B VACCINE Aged Out No l onger eligible based on patient's age to complete this topic Respiratory Syncytial Virus (RSV) <20mo Aged Out No longer eligible b ased on patient's age to complete this topic Insurance [facility] Member Subscriber Plan / Payer (Ef fective for All Dates) Name:Mai Xiong Relation to Subscriber:Self Name:Mai Xiong Payer ID:[id number] (NAIC) Group ID:Not on file Type:O Medicaid Address: [place], [place] Care Teams News Intern Relationship Specialty Start Date End Date No Pcp, [facility] PCP - General 02/06/18
--- OUTSIDE RECORDS SUMMARY | 2025-07-13 11:38 | XMS_ITS | Encounter Summary ---
Author Organization Healthcare Address [address] [place] [address] Care Team Providers Care Mineral Surveying Technician Name Role Phone Chris Sandra MD Primary Care Provider [phone] Cholo Arreola DO Primary Care Provider Encounter Details Date Type Department Care Team (Late st Contact Info) Description 02/16/2024 Orders Only External Location [address] [place] [address] Provider, External Social History Tobacco Use Types [...] documented as of this encounter Care Teams Mineral Surveying Technician Relationship Specialty Start Date End Date Chris Sandra MD [address] [facility] [place] [address] PCP - General 03/22/21 02/23/24 Cholo Arreola DO [address] [place] [address] PCP - General 02/24/24 documented as of this encounter
--- OUTSIDE RECORDS SUMMARY | 2025-07-13 11:38 | XMS_ITS | Clinical Summary ---
Author Organization [facility] Address [address] [place] [address] Care Team Providers Care Grid Casting Machine Operator Helper Name Role Phone Pcp, No Primary Care [...] therelease of HIV test results or diagnoses. [id number] Social History Tobacco Use Types Packs/Day [...] file Insurance [address] [place] [id number] [facility] Care Teams Grid Casting Machine Operator Helper Relationship Specialty Start Date End Date Pcp, No No Address PCP - General Pediatrics 02/06/18
--- OUTSIDE RECORDS SUMMARY | 2025-07-13 11:38 | XMS_ITS | Encounter Summary ---
Author Organization Healthcare Address [address] [id number] Care Team Providers Care Highway Engineering Teacher Name Role Phone Chris Sandra MD Primary Care Provider [phone] Cholo Arreola DO Primary Care Provider [phone] Encounter Details Date Type Department Care Team ([facility] st Contact Info) Description 09/15/2022 Orders Only External Location [address] [place] [address] Joshua Bernard MD [address] [place] [address] Social History Tobacco Use Types Packs/Day Years [...] documented as of this encounter Care Teams Highway Engineering Teacher Relationship Specialty Start Date End Date Chris Sandra MD 438 [facility] [place], [place] [phone] PCP - General 03/22/21 02/23/24 Cholo Arreola DO [facility] [address] [place] [address] PCP - General 02/24/24 documented as of this encounter
--- OUTSIDE RECORDS SUMMARY | 2025-07-13 11:38 | XMS_ITS ---
Author Organization [facility] Address [address] [place], [place] [address] Care Team Providers Care Plow Shaker Name Role Phone Cholo Arreola DO Primary Care Provider [phone] PrEP Status:Active (Active) Start date:12/19/2021 Enrollment date:12/19/2021 Continued Care and Services Coordination
--- OUTSIDE RECORDS SUMMARY | 2025-07-13 11:38 | XMS_ITS | Encounter Summary ---
Author Organization Healthcare Address [address] [id number] Care Team Providers Care Psychologist Research Assistant Name Role Phone Chris Sandra MD Primary Care Provider [phone] Cholo Arreola DO Primary Care Provider [phone] Encounter Details Date Type Department Care Team ([facility] st Contact Info) Description 05/30/2022 Orders Only External Location 800 [place] [address] Joshua Bernard MD [address] [place] [address] Social History Tobacco Use Types Packs/Day Years [...] documented as of this encounter Care Teams Psychologist Research Assistant Relationship Specialty Start Date End Date Chris Sandra MD [address] [facility] [place] [address] PCP - General 03/22/21 02/23/24 Cholo Arreola DO [facility] [address] [place] [address] PCP - General 02/24/24 documented as of this encounter
--- OUTSIDE RECORDS SUMMARY | 2025-07-13 11:38 | XMS_ITS | Encounter Summary ---
Author Organization Healthcare Address [address] [place] [address] Care Team Providers Care Film Reader Name Role Phone Chris Sandra MD Primary Care Provider [phone] Cholo Arreola DO Primary Care Provider [phone] Reason for Visit * Reason Comments Med Refill Encounter Details Date Type Department Care Team (Late st Contact Info) Description 11/25/2022 Refill [facility] [place] [address] Jo Pagan MD 3101 [facility] 100 [place] [address] Chronic viral hepatitis B without [...] documented as of this encounter Care Teams Film Reader Relationship Specialty Start Date End Date Chris Sandra MD 438 [facility] [place] [address] PCP - General 03/22/21 02/23/24 Cholo Arreola DO [facility] [address] [place] [address] PCP - General 02/24/24 documented as of this encounter
--- OUTSIDE RECORDS SUMMARY | 2025-07-13 11:38 | XMS_ITS | Clinical Summary ---
Author Organization [facility] Address [address] [place] [address] Phone Care Team Providers Care Protocol Officer Name Role Phone Hernandez Camarena MD, Michael [...] of 2) 2019 COVID-19 Vaccine (2 - 2024-2 6 season) 2025 12/19/2021 Influenza Vaccine (#1) 2025 2, 12/19/2021 Meningococcal B Vaccine Aged Out No l onger eligible based on patient's age to complete this topic Care Teams Protocol Officer Relationship Specialty Start Date End Date Michael Ng Sr., MD [address] [place] [address] [place] [address] PCP - General Production Team Leader 09/18/13
--- OUTSIDE RECORDS SUMMARY | 2025-07-13 11:38 | XMS_ITS | Clinical Summary ---
Author Organization [facility] Address [address] [place] [address] Care Team Providers Care Hand Booked Folder And Stitcher Name Role Phone Cholo Arreola DO Primary Care Provider [phone] Allergies Active Allergy Reactions Criticality Noted Date [...] (09/19/2021): Added automatically from request for surgery [id number] Immunizations Immunization Administration Dates Next Due Hep A, Adult 09/23/2021 Influenza, injectable, quadr ivalent, preservative free 07/15/2023,09/24/2022,12/19/2021 Jill COVID-19 Vaccine (Blue Cap) 18+ 05/14/20 21 TNT [employer] COVID-19 Vac cine (Lopez Cap) 12+ years [...] Health Maintenance Due Date Last Done Comments [facility]-/Child/Adol SDOH Screenings 1969 [facility]- SDOH Screenings 1987 [...] 2 - Risk 2-dose series) 03/23/2022 09/23/2021 [id number] Vaccine (3 - season) 2024 12/19/2021, 05/14/2021 [facility]-Depression Screening 10/21/2024 10/21/2023 [facility]-Influenza Vaccine (#1) 07/10/202507/15, 09/24/2022, 12/19/2021 [facility]-DTaP,Tdap,and Td Vaccines (2 - [...] ORDERABLES Final Res ult [facility] [address] [place] [address] from Last 3 Months or Most Recently Relevant to Health Maintenance Insurance [facility] MEDICAID Advance Directives * Full Code (Latest Code Status on File) Date Activated Date Inactivated Comments 09/19/2021 12:42 AM 10/29/2021 3:40 PM Question Answer Comments Patient has decision-making capacity? Yes Care Teams Hand Booked Folder And Stitcher Relationship Specialty Start Date End Date Cholo Arreola DO 1210 [facility] [address] [place] [address] PCP - General 02/24/24
--- OUTSIDE RECORDS SUMMARY | 2025-07-13 11:38 | XMS_ITS | Encounter Summary ---
Author Organization Healthcare Address [address] [place] [address] Care Team Providers Care Tension Machine Operator Name Role Phone Chris Sandra MD Primary Care Provider [phone] Cholo Arreola DO Primary Care Provider [phone] Reason for Visit * Reason Comments Med Refill Encounter Details Date Type Department Care Team (Late st Contact Info) Description 10/22/2022 Refill [facility] [address] [place] [address] Jo Pagan MD [address] [place] [address] [address] [address] [place] [address] Chronic viral hepatitis B without delta agent [...] documented as of this encounter Care Teams Tension Machine Operator Relationship Specialty Start Date End Date Chris Sandra MD 438 [facility] [place] [address] PCP - General 03/22/21 02/23/24 Cholo Arreola DO [address] [place] [address] PCP - General 02/24/24 documented as of this encounter
[2025-07-13 15:37] LABS: Hematocrit 36.8 % (37.0-47.0); Hemoglobin 11.7 g/dL (12.2-16.2); Immature Granulocytes % 0.2 %; Mean Corpuscular HGB Conc 31.8 g/dL (31.8-35.4); Mean Corpuscular Hemoglobin 26.7 pg (27.0-31.2); Mean Corpuscular Volume 83.8 fl (81-99); Nucleated Red Blood Cells % 0 %; Platelet Count 204 K/mm3 (142-424); Red Blood Count 4.39 M/mm3 (4.20-5.40); Red Cell Distribution Width-SD 43.4 fL; White Blood Count 4.1 K/mm3 (4.8-10.8)
[2025-07-13 20:19] LABS: Anion Gap 14.8 mEq/L (5-15); Blood Urea Nitrogen 16 mg/dl (7-17); Calcium 9.1 mg/dl (8.4-10.2); Carbon Dioxide 29 mmol/L (22.0-30.0); Chloride 101 mmol/L (98-107); Creatinine,Serum 0.60 mg/dl (0.52-1.04); Estimated Glomerular Filt Rate 104 ml/min (>60); GFR (African American) 126 ML/MIN (>60); Glucose 85 mg/dl (74-100); NT Pro Brain Natriuretic Pep. 44.7 pg/mL (0-125); Potassium 4.8 mmoL/L (3.5-5.1); Sodium 140 mmol/L (136-145)
== END 2025-07-13 23:59 | disposition home or self-care (01) ==
LOC: RAD 11:28
PROVIDERS: PCP Nurse Practitioner Family; Visit Provider Nurse Practitioner Family
DX: N39.0 Urinary tract infection, site not specified (principal); M79.661 Pain in right lower leg; M79.662 Pain in left lower leg; M79.89 Other specified soft tissue disorders; R06.00 Dyspnea, unspecified; R05.9 Cough, unspecified; R53.83 Other fatigue; R60.0 Localized edema
CPT/HCPCS: 71046; 80048; 83880; 85025; 87086

== ENCOUNTER 2025-07-17 10:18 | Outpatient (CLI) | payer OTHER, SELFPAY ==
--- OUTSIDE RECORDS SUMMARY | 2025-07-17 10:21 | XMS_ITS | Encounter Summary ---
Author Organization Healthcare Address [address] [id number] Care Team Providers Care Print Producer Name Role Phone Chris Sandra MD Primary Care Provider [phone] Cholo Arreola DO Primary Care Provider [phone] Encounter Details Date Type Department Care Team ([facility] st Contact Info) Description 09/15/2022 Orders Only External Location 800 [place] [address] Joshua Bernard MD [address] [place] [address] Social History Tobacco Use Types Packs/Day Years [...] documented as of this encounter Care Teams Print Producer Relationship Specialty Start Date End Date Chris Sandra MD 438 [facility] [place], [place] [phone] PCP - General 03/22/21 02/23/24 Cholo Arreola DO [facility]10 [facility] [address] [place] [address] PCP - General 02/24/24 documented as of this encounter
--- OUTSIDE RECORDS SUMMARY | 2025-07-17 10:21 | XMS_ITS | Encounter Summary ---
Author Organization Healthcare Address [address] [place] [address] Care Team Providers Care Patient Ombudsperson Name Role Phone Chris Sandra MD Primary Care Provider [phone] Cholo Arreola DO Primary Care Provider [phone] Reason for Visit * Reason Comments Med Refill Encounter Details Date Type Department Care Team (Late st Contact Info) Description 10/22/2022 Refill [facility] [address] [place] [address] Jo Pagan MD [address] [place] [address] [address] [address] [place] [address] Chronic viral hepatitis B without delta agent [...] documented as of this encounter Care Teams Patient Ombudsperson Relationship Specialty Start Date End Date Chris Sandra MD 438 [facility] [place] [address] PCP - General 03/22/21 02/23/24 Cholo Arreola DO [address] [place] [address] PCP - General 02/24/24 documented as of this encounter
--- OUTSIDE RECORDS SUMMARY | 2025-07-17 10:21 | XMS_ITS | Encounter Summary ---
Author Organization Healthcare Address [address] [place] [address] Care Team Providers Care Duplex Trimmer Name Role Phone Chris Sandra MD Primary Care Provider [phone] Cholo Arreola DO Primary Care Provider [phone] Reason for Visit * Reason Comments Med Refill Encounter Details Date Type Department Care Team (Late st Contact Info) Description 11/25/2022 Refill [facility] [place] [address] Jo Pagan MD 3101 [facility] 100 [place] [address] Chronic viral hepatitis B without [...] documented as of this encounter Care Teams Duplex Trimmer Relationship Specialty Start Date End Date Chris Sandra MD 438 [facility] [place] [address] PCP - General 03/22/21 02/23/24 Cholo Arreola DO [facility] [address] [place] [address] PCP - General 02/24/24 documented as of this encounter
--- OUTSIDE RECORDS SUMMARY | 2025-07-17 10:21 | XMS_ITS | Clinical Summary ---
Author Organization [facility] Address [address] [place] [address] Care Team Providers Care Registered Radiation Therapist Name Role Phone Pcp, No Primary Care [...] therelease of HIV test results or diagnoses. [id number] Social History Tobacco Use Types Packs/Day [...] file Insurance [address] [place] [address] [facility] Care Teams Registered Radiation Therapist Relationship Specialty Start Date End Date Pcp, No No Address PCP - General Pediatrics 02/06/18
--- OUTSIDE RECORDS SUMMARY | 2025-07-17 10:21 | XMS_ITS | Clinical Summary ---
Author Organization [facility] Address [address] [place] [address] Care Team Providers Care Project Manager/Design Manager Name Role Phone Cholo Arreola DO Primary Care Provider [phone] Allergies Active Allergy Reactions Criticality Noted Date [...] (09/19/2021): Added automatically from request for surgery [id number] Immunizations Immunization Administration Dates Next Due Hep A, Adult 09/23/2021 Influenza, injectable, quadr ivalent, preservative free 07/15/2023,09/24/2022,12/19/2021 Jill COVID-19 Vaccine (Blue Cap) 18+ 05/14/20 21 [employer] COVID-19 Vac cine (Lopez Cap) 12+ years [...] 2 - Risk 2-dose series) 03/23/2022 09/23/2021 [facility]-Depression Screening 10/21/2024 10/21/2023 [id number] Vaccine (3 - season) 2025 12/19/2021, 05/14/2021 [facility]-Influenza Vaccine (#1) 07/10/202507/15, 09/24/2022, 12/19/2021 [facility]-DTaP,Tdap,and [...] ORDERABLES Final Res ult [facility] [address] [place] [address] from Last 3 Months or Most Recently Relevant to Health Maintenance Insurance [facility] MEDICAID Advance Directives * Full Code (Latest Code Status on File) Date Activated Date Inactivated Comments 09/19/2021 12:42 AM 10/29/2021 3:40 PM Question Answer Comments Patient has decision-making capacity? Yes Care Teams Project Manager/Design Manager Relationship Specialty Start Date End Date Cholo Arreola DO 1210 [facility] [address] [place] [address] PCP - General 02/24/24
--- OUTSIDE RECORDS SUMMARY | 2025-07-17 10:21 | XMS_ITS | Encounter Summary ---
Author Organization Healthcare Address [address] [place] [address] Care Team Providers Care Salvage Cutter Name Role Phone Chris Sandra MD Primary Care Provider [phone] Cholo Arreola DO Primary Care Provider [phone] Encounter Details Date Type Department Care Team (Late st Contact Info) Description 02/16/2024 Orders Only External Location 800 [place] [address] Provider, External Social History Tobacco Use Types [...] documented as of this encounter Care Teams Salvage Cutter Relationship Specialty Start Date End Date Chris Sandra MD 438 [facility] [place] [address] PCP - General 03/22/21 02/23/24 Cholo Arreola DO [address] [place] [address] PCP - General 02/24/24 documented as of this encounter
--- OUTSIDE RECORDS SUMMARY | 2025-07-17 10:21 | XMS_ITS | Encounter Summary ---
Author Organization Healthcare Address [address] [id number] Care Team Providers Care Auto Damage Insurance Appraiser Name Role Phone Chris Sandra MD Primary Care Provider [phone] Cholo Arreola DO Primary Care Provider [phone] Encounter Details Date Type Department Care Team ([facility] st Contact Info) Description 05/30/2022 Orders Only External Location 800 [place] [address] Joshua Bernard MD [address] [place] [address] Social History Tobacco Use Types Packs/Day Years [...] documented as of this encounter Care Teams Auto Damage Insurance Appraiser Relationship Specialty Start Date End Date Chris Sandra MD 438 [facility] [place] [address] PCP - General 03/22/21 02/23/24 Cholo Arreola DO [facility]10 [facility] [address] [place] [address] PCP - General 02/24/24 documented as of this encounter
--- OUTSIDE RECORDS SUMMARY | 2025-07-17 10:21 | XMS_ITS ---
Author Organization [facility] Address [address] [place], [place] [address] Care Team Providers Care Route Rider Supervisor Name Role Phone Cholo Arreola DO Primary Care Provider [phone] PrEP Status:Active (Active) Start date:12/19/2021 Enrollment date:12/19/2021 Continued Care and Services Coordination
--- OUTSIDE RECORDS SUMMARY | 2025-07-17 10:21 | XMS_ITS | Clinical Summary ---
Author Organization [facility] Address [address] [place] [address] Care Team Providers Care Process Architect Name Role Phone No Pcp, [facility] Primary Care Provider Unavailabl e Source Comments [facility] is fully rolled out with thefollowing exceptions:General Clinical Research [facility] Social History Tobacco Use Types Packs/Day Years [...] of 3 - 19+ 3-dose series) 1988 AMB SEASONAL FLU VACCINE (#1) 07/10/2025 COVID-19 Vaccine ( - 2023-2 5 season) 2025 HIB IMMUNIZATION Aged Out No longer e [...] patient's age to complete this topic Insurance [facility] Member Subscriber Plan / Payer (Ef fective for All Dates) Name:Mai Xiong Relation to Subscriber:Self Name:Mai Xiong Payer ID:[id number] (NAIC) Group ID:Not on file Type:O Medicaid Address: [place], [place] Care Teams Process Architect Relationship Specialty Start Date End Date No Pcp, [facility] PCP - General 02/06/18
--- OUTSIDE RECORDS SUMMARY | 2025-07-17 10:21 | XMS_ITS | Clinical Summary ---
Author Organization [facility] Address [address] [place] [address] Phone Care Team Providers Care Supervisor Conditioning Yard Name Role Phone Hernandez Camarena MD, Michael [...] age to complete this topic Care Teams Supervisor Conditioning Yard Relationship Specialty Start Date End Date Michael Ng Sr., MD [address] [place] [address] [place] [address] PCP - General Gauge Controller 09/18/13
--- NOTE | 2025-07-17 10:38 | US_ITS ---
FINAL REPORT TECHNIQUE: Limited sonographic imaging of the knee soft tissues was obtained. CLINICAL HISTORY: r/o bakers cyst FINDINGS: No mass or fluid collection is seen. There is no abnormality in the popliteal fossa. IMPRESSION: Unremarkable exam. Reviewed, Interpreted and Dictated by Renetta Benavidez MD Transcribed by Rupa Ponce Authenticated and [facility]
== END 2025-07-17 23:59 | disposition home or self-care (01) ==
PROVIDERS: PCP Nurse Practitioner Family; Visit Provider Nurse Practitioner Family
DX: M25.462 Effusion, left knee (principal); M25.562 Pain in left knee; M79.662 Pain in left lower leg; M79.89 Other specified soft tissue disorders
CPT/HCPCS: 76882

== ENCOUNTER 2025-07-21 07:46 | Outpatient (CLI) | payer OTHER, SELFPAY ==
--- OUTSIDE RECORDS SUMMARY | 2025-07-21 07:48 | XMS_ITS | Encounter Summary ---
Author Organization Healthcare Address [address] [place] [address] Care Team Providers Care Coil Winder Name Role Phone Chris Sandra MD Primary Care Provider [phone] Cholo Arreola DO Primary Care Provider [phone] Reason for Visit * Reason Comments Med Refill Encounter Details Date Type Department Care Team (Late st Contact Info) Description 10/22/2022 Refill [facility] [address] [place] [address] Jo Pagan MD [address] [place] [address] 100 [place] [address] Chronic viral hepatitis B without delta agent [...] documented as of this encounter Care Teams Coil Winder Relationship Specialty Start Date End Date Chris Sandra MD 438 [facility] [place] [address] PCP - General 03/22/21 02/23/24 Cholo Arreola DO [address] [place] [address] PCP - General 02/24/24 documented as of this encounter
--- OUTSIDE RECORDS SUMMARY | 2025-07-21 07:48 | XMS_ITS | Encounter Summary ---
Author Organization Healthcare Address [address] [id number] Care Team Providers Care Flatbed Press Operator Name Role Phone Chris Sandra MD Primary Care Provider [phone] Cholo Arreola DO Primary Care Provider [phone] Encounter Details Date Type Department Care Team ([facility] st Contact Info) Description 05/30/2022 Orders Only External Location 800 [place] [address] Joshua Bernard MD [address] [place] [address] Social History Tobacco Use Types Packs/Day Years [...] documented as of this encounter Care Teams Flatbed Press Operator Relationship Specialty Start Date End Date Chris Sandra MD [address] [facility] [place] [address] PCP - General 03/22/21 02/23/24 Cholo Arreola DO [facility]10 [facility] [address] [place] [address] PCP - General 02/24/24 documented as of this encounter
--- OUTSIDE RECORDS SUMMARY | 2025-07-21 07:48 | XMS_ITS | Clinical Summary ---
Author Organization [facility] Address [address] [place] [address] Care Team Providers Care Suspender Maker Name Role Phone Pcp, No Primary Care [...] therelease of HIV test results or diagnoses. [id number] Social History Tobacco Use Types Packs/Day [...] file Insurance [address] [place] [address] [facility] Care Teams Suspender Maker Relationship Specialty Start Date End Date Pcp, No No Address PCP - General Pediatrics 02/06/18
--- OUTSIDE RECORDS SUMMARY | 2025-07-21 07:48 | XMS_ITS | Encounter Summary ---
Author Organization Healthcare Address [address] [id number] Care Team Providers Care Plant Protection Superintendent Name Role Phone Chris Sandra MD Primary Care Provider [phone] Cholo Arreola DO Primary Care Provider [phone] Encounter Details Date Type Department Care Team ([facility] st Contact Info) Description 09/15/2022 Orders Only External Location 800 [place] [address] Joshua Bernard MD [address] [place] [address] Social History Tobacco Use Types Packs/Day Years [...] documented as of this encounter Care Teams Plant Protection Superintendent Relationship Specialty Start Date End Date Chris Sandra MD 438 [facility] [place], [place] [address] PCP - General 03/22/21 02/23/24 Cholo Arreola DO [facility] [address] [place] [address] PCP - General 02/24/24 documented as of this encounter
--- OUTSIDE RECORDS SUMMARY | 2025-07-21 07:48 | XMS_ITS | Encounter Summary ---
Author Organization Healthcare Address [address] [place] [address] Care Team Providers Care Discharge Rn Name Role Phone Chris Sandra MD Primary Care Provider [phone] Cholo Arreola DO Primary Care Provider [phone] Encounter Details Date Type Department Care Team (Late st Contact Info) Description 02/16/2024 Orders Only External Location 800 [place] [address] Provider, External Social History Tobacco Use Types [...] documented as of this encounter Care Teams Discharge Rn Relationship Specialty Start Date End Date Chris Sandra MD 438 [facility] [place] [address] PCP - General 03/22/21 02/23/24 Cholo Arreola DO [address] [place] [address] PCP - General 02/24/24 documented as of this encounter
--- OUTSIDE RECORDS SUMMARY | 2025-07-21 07:48 | XMS_ITS | Clinical Summary ---
Author Organization [facility] Address [address] [place] [address] Care Team Providers Care Inside Channel Account Manager Name Role Phone No Pcp, [facility] Primary Care Provider Unavailabl e Source Comments [facility] is fully rolled out with thefollowing exceptions:General Clinical Research [facility] Social History Tobacco Use Types Packs/Day [...] patient's age to complete this topic Insurance [facility] Member Subscriber Plan / Payer (Ef fective for All Dates) Name:Mai Xiong Relation to Subscriber:Self Name:Mai Xiong Payer ID:[id number] (NAIC) Group ID:Not on file Type:O Medicaid Address: [place], [place] Care Teams Inside Channel Account Manager Relationship Specialty Start Date End Date No Pcp, [facility] PCP - General 02/06/18
--- OUTSIDE RECORDS SUMMARY | 2025-07-21 07:48 | XMS_ITS | Clinical Summary ---
Author Organization [facility] Address [address] [place] [address] Phone Care Team Providers Care Weaver Dobby Loom Name Role Phone Hernandez Camarena MD, Michael [...] age to complete this topic Care Teams Weaver Dobby Loom Relationship Specialty Start Date End Date Michael Ng Sr., MD [address] [place] [address] [place] [address] PCP - General Shank Taper 09/18/13
--- OUTSIDE RECORDS SUMMARY | 2025-07-21 07:48 | XMS_ITS | Encounter Summary ---
Author Organization Healthcare Address [address] [place] [address] Care Team Providers Care Discount Clerk Name Role Phone Chris Sandra MD Primary Care Provider [phone] Cholo Arreola DO Primary Care Provider [phone] Reason for Visit * Reason Comments Med Refill Encounter Details Date Type Department Care Team (Late st Contact Info) Description 11/25/2022 Refill [facility] [place] [address] Jo Pagan MD 3101 [facility] 100 [place] [address] Chronic viral hepatitis B without [...] documented as of this encounter Care Teams Discount Clerk Relationship Specialty Start Date End Date Chris Sandra MD 438 [facility] [place] [address] PCP - General 03/22/21 02/23/24 Cholo Arreola DO [facility] [address] [place] [address] PCP - General 02/24/24 documented as of this encounter
--- OUTSIDE RECORDS SUMMARY | 2025-07-21 07:48 | XMS_ITS ---
Author Organization [facility] Address [address] [place], [place] [address] Care Team Providers Care Chocolate Production Machine Operator Name Role Phone Cholo Arreola DO Primary Care Provider [phone] PrEP Status:Active (Active) Start date:12/19/2021 Enrollment date:12/19/2021 Continued Care and Services Coordination
--- OUTSIDE RECORDS SUMMARY | 2025-07-21 07:48 | XMS_ITS | Clinical Summary ---
Author Organization [facility] Address [address] [place] [address] Care Team Providers Care Municipal Services Manager Name Role Phone Cholo Arreola DO Primary Care Provider [phone] Allergies Active Allergy Reactions Criticality Noted Date [...] (09/19/2021): Added automatically from request for surgery [id number] Immunizations Immunization Administration Dates Next Due Hep A, Adult 09/23/2021 Influenza, injectable, quadr ivalent, preservative free 07/15/2023,09/24/2022,12/19/2021 Jill COVID-19 Vaccine (Blue Cap) 18+ 05/14/20 21 [employer] COVID-19 Vac cine (Lopez Cap) 12+ years [...] series) 03/23/2022 09/23/2021 [facility]-Depression Screening 10/21/2024 10/21/2023 [id number] Vaccine (3 - season) 2025 12/19/2021, 05/14/2021 [...] ORDERABLES Final Res ult [facility] [address] [place] [address] from Last 3 Months or Most Recently Relevant to Health Maintenance Insurance [facility] MEDICAID Advance Directives * Full Code (Latest Code Status on File) Date Activated Date Inactivated Comments 09/19/2021 12:42 AM 10/29/2021 3:40 PM Question Answer Comments Patient has decision-making capacity? Yes Care Teams Municipal Services Manager Relationship Specialty Start Date End Date Cholo Arreola DO 1210 [facility] [address] [place] [address] PCP - General 02/24/24
--- NOTE | 2025-07-21 08:00 | CA_ITS ---
APPROVED REPORT EXAM: Comprehensive 2D, Doppler, and color-flow Echocardiogram Administrative Asst: JUAN Frazier, RVS Ht: 5 ft 2 in Wt: 268lbs BSA: 2.17 BP: 110/80 mmHg Indications: Edema, Smoker, dyspnea Echo Enhancing Agent Indication: No IV access Comments: Techniacally limited due to poor acoustic windows throughout. 2D Dimensions IVSd 1.07 cm F: 0.6-1.0 LVEF (Visual) 49.50 % PWd 1.25 cm F: 0.6 - 1.0 LA Volume 52.50 mL LVDd 3.86 cm F: 3.9 - 5.3 LA Volume Index [id number] mL/m2 (M/F) 16-34 LVDs 2.91 cm F: 2.2 - 3.5 Left Atrium 3.24 cm F: 2.7 - 3.8 M-Mode Dimensions LA Diam 3.55 cm (1.9-4.0) EPSs 0.48 cm TAPSE 2.26 (<1.7) LV Diastology E Decel Time 190 (160-240 msec) E/A Ratio 0.94 MED A' 13.20 cm/s LAT A' 11.10 cm/s Aortic Valve LYNN Index 1.07 cm2/m2 AoV Peak Simón. 133.0 (50-130 cm/s) AO Peak GR. 7.10 mmHg AO Mean GR. 3.50 (<5 mmHg) AO VTI 24.7 (18-25 cm) LYNN (VTI) 2.37 (2.5-4.5 cm2) Mitral Valve MV A Velocity 104.0 (40-130 cm/s) E/A Ratio 0.94 Left Ventricle The left ventricle is normal size. Left ventricular systolic function is normal. The left ventricular ejection fraction is within the normal range. There is increased left ventricular wall thickness. There is normal LV segmental wall motion. Transmitral Doppler flow pattern suggests impaired LV relaxation. LVEF is 55% Right Ventricle The right ventricle is normal size. The right ventricular systolic function is normal. Atria The left atrium is mildly dilated. The right atrium size is normal. There is no color Doppler evidence of interatrial shunt. Aortic Valve The aortic valve opens well. There is no hemodynamically significant aortic valvular stenosis. Mild aortic regurgitation is present. Mitral Valve The mitral valve is normal in structure. No evidence of mitral valve stenosis. Trace mitral regurgitation is present. Tricuspid Valve The tricuspid valve leaflets are thin and pliable. Trace tricuspid regurgitation. There is insufficient TR jet to estimate RVSP. Pulmonic Valve The pulmonary valve is grossly normal in structure. Trace pulmonic valve regurgitation is present. Great Vessels The aortic root is normal in size. IVC is normal in size and collapses >50% with inspiration. Pericardium There is no pericardial effusion. Other Information Study Quality: Technically Difficult Conclusion Normal biventricular systolic function. Mild LA dilation. Mild AI. Electronically signed by : Awa Figueroa MD 07/24/2025 20:45:20
== END 2025-07-21 23:59 | disposition home or self-care (01) ==
LOC: RT 07:47
PROVIDERS: PCP Nurse Practitioner Family; Visit Provider Nurse Practitioner Family
DX: I35.1 Nonrheumatic aortic (valve) insufficiency (principal); I51.7 Cardiomegaly; M79.661 Pain in right lower leg; M79.662 Pain in left lower leg; M79.89 Other specified soft tissue disorders; F17.200 Nicotine dependence, unspecified, uncomplicated
CPT/HCPCS: 93306

== ENCOUNTER 2025-08-09 09:52 | Outpatient (CLI) | payer OTHER, SELFPAY ==
--- OUTSIDE RECORDS SUMMARY | 2025-08-10 10:01 | XMS_ITS ---
Author Organization [facility] Address [address] [place], [place] [address] Care Team Providers Care Drill Sergeant Name Role Phone Cholo Arreola DO Primary Care Provider [phone] PrEP Status:Active (Active) Start date:12/19/2021 Enrollment date:12/19/2021 Continued Care and Services Coordination
--- OUTSIDE RECORDS SUMMARY | 2025-08-10 10:01 | XMS_ITS | Clinical Summary ---
Author Organization [facility] Address [address] [place] [address] Care Team Providers Care Post Doctoral Fellow Name Role Phone No Pcp, [facility] Primary Care Provider Unavailabl e Source Comments [facility] is fully rolled out with thefollowing exceptions:General Clinical Research [facility] Social History Tobacco Use Types [...] patient's age to complete this topic Insurance [facility] Member Subscriber Plan / Payer (Ef fective for All Dates) Name:Mai Xiong Relation to Subscriber:Self Name:Mai Xiong Payer ID:[id number] (NAIC) Group ID:Not on file Type:O Medicaid Address: [place], [place] Care Teams Post Doctoral Fellow Relationship Specialty Start Date End Date No Pcp, [facility] PCP - General 02/06/18
--- OUTSIDE RECORDS SUMMARY | 2025-08-10 10:01 | XMS_ITS | Clinical Summary ---
Author Organization [facility] Address [address] [place] [address] Care Team Providers Care Branch Service Associate Name Role Phone Cholo Arreola DO Primary Care Provider [phone] Allergies Active Allergy Reactions Criticality Noted Date [...] Active Problems Problem Noted Date Diagnosed Date Opioid use disorder 09/19/2021 Class 3 severe obesity with body mass index (BMI) of 40.0 to 44.9 in adult 09/19/2021 Resolved Problems Problem Noted Date Diagnosed Date Resolved Date Acute pain of left knee 09/19/2021 09/2 11/2024 Leukocytosis 09/19/2021 10/29/2021 Knee effusion, left 09/19/2021 10/29/20 Pyogenic arthritis of left knee joint 09/18/2021 10/29/2021 Overview (09/19/2021): Added automatically from request for surgery [id number] Immunizations Immunization Administration Dates Next Due Hep A, Adult 09/23/2021 Influenza, injectable, quadr ivalent, preservative free 07/15/2023,09/24/2022,12/19/2021 [employer] COVID-19 Vaccine (Blue Cap) 18+ 05/14/20 21 [employer] COVID-19 Vac cine (Lopez Cap) 12+ years [...] series) 03/23/2022 09/23/2021 UKY-Depression Screening 10/21/2024 10/21/2023 [id number] Vaccine (3 - season) 2025 12/19/2021, 05/14/2021 [...] MD LAB BLOOD ORDERABLES Final Res ult [facility] [address] [place] [address] from Last 3 Months or Most Recently Relevant to Health Maintenance Insurance [place] [id number] [facility] MEDICAID Advance Directives * Full Code (Latest Code Status on File) Date Activated Date Inactivated Comments 09/19/2021 12:42 AM 10/29/2021 3:40 PM Question Answer Comments Patient has decision-making capacity? Yes Care Teams Branch Service Associate Relationship Specialty Start Date End Date Cholo Arreola DO [address] [facility] [address] [place] [address] PCP - General 02/24/24
--- OUTSIDE RECORDS SUMMARY | 2025-08-10 10:01 | XMS_ITS | Encounter Summary ---
Author Organization Healthcare Address [address] [place] [address] Care Team Providers Care Parachute Folder Name Role Phone Chris Sandra MD Primary Care Provider [phone] Cholo Arreola DO Primary Care Provider [phone] Encounter Details Date Type Department Care Team (Late st Contact Info) Description 02/16/2024 Orders Only External Location [address] [place] [address] Provider, External Social History Tobacco Use Types [...] documented as of this encounter Care Teams Parachute Folder Relationship Specialty Start Date End Date Chris Sandra MD [address] [facility] [place] [address] PCP - General 03/22/21 02/23/24 Cholo Arreola DO [address] [place] [address] PCP - General 02/24/24 documented as of this encounter
--- OUTSIDE RECORDS SUMMARY | 2025-08-10 10:01 | XMS_ITS | Encounter Summary ---
Author Organization Healthcare Address [address] [place] [id number] Care Team Providers Care Heel Coverer Name Role Phone Chris Sandra MD Primary Care Provider [phone] Cholo Arreola DO Primary Care Provider [phone] Encounter Details Date Type Department Care Team ([facility] st Contact Info) Description 09/15/2022 Orders Only External Location [address] [place] [address] Joshua Bernard MD [address] [place] [address] Social History Tobacco Use Types Packs/Day Years [...] documented as of this encounter Care Teams Heel Coverer Relationship Specialty Start Date End Date Chris Sandra MD [address] [facility] [place], [place] [id number] PCP - General 03/22/21 02/23/24 Cholo Arreola DO [facility] [address] [place] [address] PCP - General 02/24/24 documented as of this encounter
--- OUTSIDE RECORDS SUMMARY | 2025-08-10 10:01 | XMS_ITS | Encounter Summary ---
Author Organization [employer] ([place], [place], [place], [place]) Address [address] [place] [address] Care Team Providers Care Chargemaster Analyst Name Role Phone Unavailable Primary Care Provider Unavailabl e Reason for Referral * Consultation (Routine) - Authorized Specialty Diagnoses / Procedures Referred By Contac t Referred To Contact Urology Diagnoses Recurrent UTI [address] [place] [address] Phone: tel: fax: Arian Hargrove MD [address] [place] [address] Phone: tel: fax: Referral ID Status Reason Start Date Expiration Date Visits Requested Visits Authorized [id number] Authorized Specialty Services Required 08/03/2025 08/03/2026 1 1 Encounter Details Date Type Department Care Team (Late st Contact Info) Description 08/03/2025 Outside Orders [facility] Urology - [address] [place] [address] [facility] [address] [place] [address] [address] [place] [address] Recurrent UTI (Primary Dx) Social History Tobacco Use Types Packs/Day Years Used Date Smoking Tobacco: Never Assessed Comments Unknown Sex and Gender Information Value Date Recorded Sex Assigned at Not on file Legal Sex Female 5:22 PM CDT Gender Identity Not on file Sexual Orientation Not on file documented as of this encounter Plan of Treatment Upcoming Encounters Date Type Department Care Team (Late st Contact Info) Description 08/25/2025 3:30 PM EDT Office Visit [facility] Urology - [address] [facility] [address] [place] [address] Colby Caro MD [address] [place] [address] [address] [place] [id number] Scheduled Referrals Name Type Priority Associated Diagnoses Order Schedule Ambulatory referral to Urology Outpatient Referral Routine Recurrent UTI Expected: 08/03/2025, Expires: 08/03/2026 documented as of this encounter Visit Diagnoses Diagnosis Recurrent UTI- Primary Urinary tract infection, site not specified documented in this encounter
--- OUTSIDE RECORDS SUMMARY | 2025-08-10 10:01 | XMS_ITS | Encounter Summary ---
Author Organization Healthcare Address [address] [id number] Care Team Providers Care Water Taxi Captain Name Role Phone Chris Sandra MD Primary Care Provider [phone] Cholo Arreola DO Primary Care Provider [phone] Encounter Details Date Type Department Care Team ([facility] st Contact Info) Description 05/30/2022 Orders Only External Location [address] [place] [address] Joshua Bernard MD [address] [place] [address] Social History Tobacco Use Types Packs/Day Years [...] documented as of this encounter Care Teams Water Taxi Captain Relationship Specialty Start Date End Date Chris Sandra MD [address] [facility] [place] [address] PCP - General 03/22/21 02/23/24 Cholo Arreola DO [facility] [address] [place] [address] PCP - General 02/24/24 documented as of this encounter
--- OUTSIDE RECORDS SUMMARY | 2025-08-10 10:01 | XMS_ITS | Clinical Summary ---
Author Organization [facility] Address [address] [place] [address] Care Team Providers Care Hat Body Inspector Name Role Phone Diana Bueno APRN Primary Care Provider [phone] Social History Tobacco Use Types Packs/Day Years Used Date Smoking Tobacco: Never Assessed Abuse Screen Answer Date Recorded Unsafe at Home or Work/School Not on file Feels Threatened by Someone? Not on file Does Anyone Keep You from Co ntacting Others or Doint Things Outside the Home? Not on file 07/05/2024 Physical Sign of Abuse Present Not on file 0 07/05/2024 Housing Stability Answer Date Recorded Current Living Arrangements Not on file 06/10 Potentially Unsafe Housing Conditions Not on chino e 07/05/2024 Family and Community Support Answer Aubrey e Recorded Help with Day-to-Day Activities Not on file 07/05/2024 Lonely or Isolated Not on file 07/05/2024 Employment Answer Date Recorded Do you want help finding or keeping work or a apoorva b? Not on file 07/05/2024 Disabilities Answer Date Recorded Concentrating, Remembering, or Making Decisions Difficulty Not on file 07/05/2024 Doing Errands Independently Difficulty Not on fi le 07/05/2024 Education Answer Date Recorded Help with school or training? Not on file Preferred Language Not on file 07/05/2024 Comments Unknown Sex and Gender Information Value Date Recorded Sex Assigned at Not on file Legal Sex Female 1:39 PM EDT Gender Identity Not on file Sexual Orientation Not on file Plan of Treatment Upcoming Encounters Date Type Department Care Team (Late st Contact Info) Description 12/06/2025 10:00 AM EST Office Visit [facility]OLOGY [address] [facility] [address] [place] [address] Luna, Narindergrant Perez, [address] [facility] [address] [place] [address] Health Maintenance Due Date Last Done Comments ANNUAL PHYSICAL 1969 Annual Gynecologic Pelvic an d Breast Exam 1969 MAMMOGRAM 2009 COLOGUARD 2014 COLON CANCER SCREENING 5 YEA R SIGMOIDOSCOPY 2014 COLONOSCOPY [address] CANCER SCREENING 2014 CT COLONOGRAPHY 2014 FECAL OCCULT BLOOD TEST 2014 FIT Testing (1 year) 2014 Pneumococcal Vaccine 50+ (1 of 1 - PCV) 2019 ZOSTER VACCINE (1 of 2) 2019 INFLUENZA VACCINE 06/09/2025 07/15/2023, , 12/19/2021 TDAP/TD VACCINES (2 - Td or Tdap) 04/09/2033 023 HEPATITIS C SCREENING Completed 10/25/2021 , 10/25/2021, 09/19/2021, Additional history exists Procedures Procedure Name Priority Date/Time Associated Diagnosis Comments SCANNED - LABS 07/13/2025 SCANNED - LABS 07/13/2025 from Last 3 Months Results * LABS SCANNED (07/13/2025) Only the most recent of2 resultswithin the time period is included. [facility] LAB BLOOD ORDERABLES Final Re sult from Last 3 Months Insurance Care Teams Hat Body Inspector Relationship Specialty Start Date End Date Diana Bueno APRN [address] [place] [address] [place] [address] PCP - General Nurse Practitioner 09/30/24
--- OUTSIDE RECORDS SUMMARY | 2025-08-10 10:02 | XMS_ITS | Encounter Summary ---
Author Organization Healthcare Address [address] [place] [address] Care Team Providers Care Stone Mason Name Role Phone Chris Sandra MD Primary Care Provider [phone] Cholo Arreola DO Primary Care Provider [phone] Reason for Visit * Reason Comments Med Refill Encounter Details Date Type Department Care Team (Late st Contact Info) Description 10/22/2022 Refill [facility] [address] [place] [address] Jo Pagan MD [address] [place] [address] [address] [place] [address] Chronic viral hepatitis B without delta agent [...] documented as of this encounter Care Teams Stone Mason Relationship Specialty Start Date End Date Chris Sandra MD [address] [facility] [place] [address] PCP - General 03/22/21 02/23/24 Cholo Arreola DO [address] [place] [address] PCP - General 02/24/24 documented as of this encounter
--- OUTSIDE RECORDS SUMMARY | 2025-08-10 10:02 | XMS_ITS | Clinical Summary ---
Author Organization [facility] Address [address] [place] [address] Phone Care Team Providers Care Travel Agency Manager Name Role Phone Hernandez Camarena MD, [...] age to complete this topic Care Teams Travel Agency Manager Relationship Specialty Start Date End Date Michael Ng Sr., MD [address] [place] [address] [facility] [address] PCP - General Ve Teacher 09/18/13
--- OUTSIDE RECORDS SUMMARY | 2025-08-10 10:02 | XMS_ITS | Encounter Summary ---
Author Organization [employer] ([place], [place], [place], [place]) Address [address] [place] [address] Care Team Providers Care Legal Coordinator Name Role Phone Unavailable Primary Care Provider Unavailabl e Reason for Visit * Reason Onset Date Comments Appointment 08/03/2025 08/03/25 9:39- Sp sommer to pt about scheduling referral, she wants me to call her back in 20 min . Encounter Details Date Type Department Care Team (Late Contact Info) Description 08/03/2025 Telephone [facility] Urology - [address] [place] [address] Arian Hargrove MD [address] [facility] [address] [place] [address] Appointment (08/03/25 9:39- Spoke to pt about scheduling referral, she wants me to call her back in 20 min . ) Social History Tobacco Use Types Packs/Day Years Used Date Smoking Tobacco: Never Assessed Comments Unknown Sex and Gender Information Value Date Recorded Sex Assigned at Not on file Legal Sex Female 5:22 PM CDT Gender Identity Not on file Sexual Orientation Not on file documented as of this encounter Miscellaneous Notes * Telephone Encounter - Maya Elise - 08/03/2025 9:40 AM EDT 08/03/25 9:39- Spoke to pt about scheduling referral, she wants me to call her back in 20 min . documented in this encounter Plan of Treatment Upcoming Encounters Date Type Department Care Team (Late st Contact Info) Description 08/25/2025 3:30 PM EDT Office Visit [facility] Urology - [address] [place] [address] Colby Caro MD [address] [facility] [address] [place] [id number] documented as of this encounter Visit Diagnoses Not on filedocumented in this encounter
--- OUTSIDE RECORDS SUMMARY | 2025-08-10 10:02 | XMS_ITS | Clinical Summary ---
Author Organization [facility] Address [address] [place] [address] Care Team Providers Care Baby Registry Sales Consultant Name Role Phone Pcp, No Primary Care [...] therelease of HIV test results or diagnoses. [id number] Social History Tobacco Use Types Packs/Day [...] file Insurance [address] [place] [id number] [facility] Care Teams Baby Registry Sales Consultant Relationship Specialty Start Date End Date Pcp, No No Address PCP - General Pediatrics 02/06/18
--- OUTSIDE RECORDS SUMMARY | 2025-08-10 10:02 | XMS_ITS | Clinical Summary ---
Author Organization [employer] ([place], [place], [place], [place]) Address [address] [place] [address] Care Team Providers Care Layaway Clerk Name Role Phone Unavailable Primary Care Provider Unavailabl e Encounters Date Type Department Care Team Description 08/03/2025 Telephone [facility] Urology - [facility] [address] [facility] [address] [place] [address] Arian Hargrove MD Appointment (08/03/25 9:39- Spoke to pt about scheduling referral, she wants me to call her back in 20 min . ) 08/03/2025 Outside Orders [facility] Urology - [facility] [address] [facility] [address] [place] [address] [facility] Recurrent UTI (Primary Dx) from Last 3 Months Social History Tobacco Use Types Packs/Day Years [...] Description 08/25/2025 3:30 PM EDT Office Visit [facility] [address] [facility] [address] [place] [address] Colby Caro MD [address] [facility] [address] [place], [place] [phone] Health Maintenance Due Date Last Done Comments CT Colonography 1969 Colonoscopy 1969 Colorectal Cancer Screening 1969 FOBT/FIT 1969 Fit-DNA (Cologuard) 1969 Sigmoidoscopy 1969 Depression Screening (12+) 1981 Tobacco Cessation Counseling and Screening (12+) 1981 HIV Screening 1984 Hepatitis C Screening 1987 Pap Smear 1990 Breast Cancer Screening 2009 Lipid Panel 2014 Pneumococcal 50+ years (1 of 1 - PCV) 2019 Shingles Vaccine (Zoster) (1 of 2) 2019 COVID-19 VACCINE (3 - season) 07/10/202508/2022, 05/14/2021 Influenza Vaccine (#1) 2025 DTAP/TDAP/TD VACCINES (2 - Td or Tdap) 04/09/2033 Insurance [facility]
--- OUTSIDE RECORDS SUMMARY | 2025-08-10 10:02 | XMS_ITS | Referral Summary ---
Author Organization [employer] ([place], [place]) Address [address] [place] [address] Care Team Providers Care Top Trimmer Name Role Phone Unavailable Primary Care Provider Unavailabl e Encounters Date Type Department Care Team Description 08/03/2025 Telephone [facility] Urology [facility] [address] [facility] [address] [place] [address] Arian Hargrove MD Appointment (08/03/25 9:39- Spoke to pt about scheduling referral, she wants me to call her back in 20 min . ) 08/03/2025 Outside Orders [facility] Urology [facility] [address] [facility] [address] [place] [address] [facility] Recurrent UTI (Primary Dx) from Last 3 [...] Description 08/25/2025 3:30 PM EDT [facility] [address] [facility] [address] [place] [address] Colby Caro MD [address] [facility] [address] [place] [id number] [facility]
--- OUTSIDE RECORDS SUMMARY | 2025-08-10 10:02 | XMS_ITS | Encounter Summary ---
Author Organization Healthcare Address [address] [place] [address] Care Team Providers Care Boy'S Adviser Name Role Phone Chris Sandra MD Primary Care Provider [phone] Cholo Arreola DO Primary Care Provider [phone] Reason for Visit * Reason Comments Med Refill Encounter Details Date Type Department Care Team (Late st Contact Info) Description 11/25/2022 Refill [facility] [place] [address] Jo Pagan MD [address] [facility] [address] [place] [address] Chronic viral hepatitis B without [...] documented as of this encounter Care Teams Boy'S Adviser Relationship Specialty Start Date End Date Chris Sandra MD [address] [facility] [place] [address] PCP - General 03/22/21 02/23/24 Cholo Arreola DO [facility] [address] [place] [address] PCP - General 02/24/24 documented as of this encounter
== END 2025-08-09 23:59 ==
LOC: LAB.DROPOF 08-10 09:59
PROVIDERS: PCP Nurse Practitioner Family; Visit Provider Nurse Practitioner Family
DX: N39.0 Urinary tract infection, site not specified (principal)
CPT/HCPCS: 87086

== ENCOUNTER 2025-08-11 07:45 | Outpatient (CLI) | payer OTHER, SELFPAY ==
--- OUTSIDE RECORDS SUMMARY | 2025-08-11 07:47 | XMS_ITS | Encounter Summary ---
Author Organization Healthcare Address [address] [place] [address] Care Team Providers Care Director Of Physical Therapy Name Role Phone Chris Sandra MD Primary Care Provider [phone] Cholo Arreola DO Primary Care Provider [phone] Encounter Details Date Type Department Care Team (Late st Contact Info) Description 02/16/2024 Orders Only External Location [address] [place] [address] Provider, External Social History Tobacco Use Types [...] documented as of this encounter Care Teams Director Of Physical Therapy Relationship Specialty Start Date End Date Chris Sandra MD [address] [facility] [place] [address] PCP - General 03/22/21 02/23/24 Cholo Arreola DO [address] [place] [address] PCP - General 02/24/24 documented as of this encounter
--- OUTSIDE RECORDS SUMMARY | 2025-08-11 07:47 | XMS_ITS | Encounter Summary ---
Author Organization [employer] ([place], [place], [place]) Address [address] [place] [address] Care Team Providers Care Specialized Developer Name Role Phone Unavailable Primary Care Provider Unavailabl e Reason for Visit * Reason Onset Date Comments Appointment 08/03/2025 08/03/25 9:39- Sp sommer to pt about scheduling referral, she wants me to call her back in 20 min . Encounter Details Date Type Department Care Team (Late Contact Info) Description 08/03/2025 Telephone [facility] Urology - [address] [place] [address] Arian Hargrove MD [address] [facility] [address] [place] [address] Appointment (08/03/25 9:39- Spoke to pt about [...] Description 08/25/2025 3:30 PM EDT Office Visit [facility] Urology - [address] [place] [address] Colby Caro MD [address] [facility] [address] [place] [phone] documented as of this encounter Visit Diagnoses Not on filedocumented in this encounter
--- OUTSIDE RECORDS SUMMARY | 2025-08-11 07:47 | XMS_ITS | Encounter Summary ---
Author Organization Healthcare Address [address] [id number] Care Team Providers Care Fixer Supervisor Name Role Phone Chris Sandra MD Primary Care Provider [phone] Cholo Arreola DO Primary Care Provider [phone] Encounter Details Date Type Department Care Team ([facility] st Contact Info) Description 09/15/2022 Orders Only External Location [address] [place] [address] Joshua Bernard MD [address] [place] [address] Social History Tobacco Use Types Packs/Day Years [...] documented as of this encounter Care Teams Fixer Supervisor Relationship Specialty Start Date End Date Chris Sandra MD [address] [facility] [place], [place] [id number] PCP - General 03/22/21 02/23/24 Cholo Arreola DO [address] [facility] [address] [place] [address] PCP - General 02/24/24 documented as of this encounter
--- OUTSIDE RECORDS SUMMARY | 2025-08-11 07:47 | XMS_ITS | Encounter Summary ---
Author Organization Healthcare Address [address] [place] [address] Care Team Providers Care Can Bander Operator Name Role Phone Chris Sandra MD Primary Care Provider [phone] Cholo Arreola DO Primary Care Provider [phone] Reason for Visit * Reason Comments Med Refill Encounter Details Date Type Department Care Team (Late st Contact Info) Description 10/22/2022 Refill [facility] [address] [place] [phone] Jo Pagan MD [address] [place] [address] [address] [place] [address] Chronic viral hepatitis B without delta agent [...] documented as of this encounter Care Teams Can Bander Operator Relationship Specialty Start Date End Date Chris Sandra MD [address] [facility] [place] [address] PCP - General 03/22/21 02/23/24 Cholo Arreola DO [address] [place] [address] PCP - General 02/24/24 documented as of this encounter
--- OUTSIDE RECORDS SUMMARY | 2025-08-11 07:47 | XMS_ITS | Clinical Summary ---
[facility] Address [address] [place] [address] Care Team Providers Care Director Of Corporate Real Estate Name Role Phone Diana Bueno APRN Primary Care Provider [phone] Social History Tobacco Use Types Packs/Day Years [...] e 07/05/2024 Family and Community Support Answer Aubrye e Recorded Help with Day-to-Day Activities Not [...] Description 12/06/2025 10:00 AM EST Office Visit [facility] [address] [facility] 100 [place] [address] Luna, Narindergrant Perez, [address] [facility] 100 [place] [address] Health Maintenance Due Date Last Done Comments [...] of2 resultswithin the time period is included. [facility] BLOOD ORDERABLES Final Re sult from Last 3 Months Insurance Care Teams Director Of Corporate Real Estate Relationship Specialty Start Date End Date Diana Bueno APRN [address] [place] [address] [place] [id number] PCP - General Nurse Practitioner 09/30/24
--- OUTSIDE RECORDS SUMMARY | 2025-08-11 07:47 | XMS_ITS | Clinical Summary ---
Author Organization [employer] [place] Address [address] [place] [address] Care Team Providers Care Loader Helper Name Role Phone Unavailable Primary Care Provider Unavailabl e Encounters Date Type Department Care Team Description 08/03/2025 Telephone [facility] Urology - [facility] [address] [facility] [address] [place] [address] Arian Hargrove MD Appointment (08/03/25 9:39- Spoke to pt about scheduling referral, she wants me to call her back in 20 min . ) 08/03/2025 Outside Orders [facility] Urology - [facility] [address] [facility] [address] [place] [address] [facility] Recurrent UTI (Primary Dx) from Last 3 [...] Description 08/25/2025 3:30 PM EDT Office Visit [facility] U[facility] [address] [facility] [address] [place] [address] Colby Caro MD [address] [facility] [address] [place], [place] [id number] Health Maintenance Due Date Last Done Comments [...] - Td or Tdap) 04/09/2033 Insurance [employer] [facility]
--- OUTSIDE RECORDS SUMMARY | 2025-08-11 07:47 | XMS_ITS | Clinical Summary ---
Author Organization [facility] Address [address] [place] [address] Care Team Providers Care Farm Technician Name Role Phone No Pcp, [facility] Primary Care Provider Unavailabl e Source Comments [facility] is fully rolled out with thefollowing exceptions:General Clinical Research [facility] Social History Tobacco Use Types [...] patient's age to complete this topic Insurance [facility] Member Subscriber Plan / Payer (Ef fective for All Dates) Name:Mai Xiong Relation to Subscriber:Self Name:Mai Xiong Payer ID:[id number] (NAIC) Group ID:Not on file Type:O Medicaid Address: [place], [place] Care Teams Farm Technician Relationship Specialty Start Date End Date No Pcp, [facility] PCP - General 02/06/18
--- OUTSIDE RECORDS SUMMARY | 2025-08-11 07:47 | XMS_ITS | Encounter Summary ---
Author Organization [employer] [place] Address [address] [place] [address] Care Team Providers Care Irrigation Equipment Installer Name Role Phone Unavailable Primary Care Provider Unavailabl e Reason for Referral * Consultation (Routine) - Authorized Specialty Diagnoses / Procedures Referred By Contac t Referred To Contact Urology Diagnoses Recurrent UTI [address] [place] [address] Phone: tel: fax: Arian Hargrove MD [address] [place] [address] Phone: tel: fax: Referral ID Status Reason Start Date Expiration Date Visits Requested Visits Authorized [id number] Authorized Specialty Services Required 08/03/2025 08/03/2026 1 1 Encounter Details Date Type Department Care Team (Late st Contact Info) Description 08/03/[address] [facility] Urology - [address] [place] [address] [facility] [address] [place] [address] [address] [place] [address] Recurrent UTI (Primary Dx) Social [...] Description 08/25/2025 3:30 PM EDT Office Visit [facility] Urology - [address] [facility] [address] [place] [address] Colby Caro MD [address] [place] [address] [address] [place] [id number] Scheduled Referrals Name Type Priority Associated Diagnoses Order Schedule Ambulatory referral to Urology Outpatient Referral Routine Recurrent UTI Expected: 08/03/2025, Expires: 08/03/2026 documented as of this encounter Visit Diagnoses Diagnosis Recurrent UTI- Primary Urinary tract infection, site not specified documented in this encounter
--- OUTSIDE RECORDS SUMMARY | 2025-08-11 07:47 | XMS_ITS | Encounter Summary ---
Author Organization Healthcare Address [address] [place] [address] Care Team Providers Care Varnisher Apprentice Name Role Phone Chris Sandra MD Primary Care Provider [phone] Cholo Arreola DO Primary Care Provider Reason for Visit * Reason Comments Med Refill Encounter Details Date Type Department Care Team (Late st Contact Info) Description 11/25/2022 Refill [facility] [place] [address] Jo Pagan MD [address] [facility] 100 [place] [address] Chronic viral hepatitis B without [...] documented as of this encounter Care Teams Varnisher Apprentice Relationship Specialty Start Date End Date Chris Sandra MD [address] [facility] [place] [address] PCP - General 03/22/21 02/23/24 Cholo Arreola DO [facility] [address] [place] [address] PCP - General 02/24/24 documented as of this encounter
--- OUTSIDE RECORDS SUMMARY | 2025-08-11 07:47 | XMS_ITS | Clinical Summary ---
Author Organization [facility] Address [address] [place] [address] Phone Care Team Providers Care Bricklayer Apprentice Name Role Phone Hernandez Camarena MD, Michael [...] age to complete this topic Care Teams Bricklayer Apprentice Relationship Specialty Start Date End Date Michael Ng Sr., MD [address] [place] [address] [facility] [place] [address] PCP - General Price Clerk 09/18/13
--- OUTSIDE RECORDS SUMMARY | 2025-08-11 07:47 | XMS_ITS | Clinical Summary ---
Author Organization [facility] Address [address] [place] [address] Care Team Providers Care Disease Control Inspector Name Role Phone Cholo Arreola DO Primary Care Provider [phone] Allergies Active Allergy Reactions Criticality Noted Date [...] (09/19/2021): Added automatically from request for surgery [id number] Immunizations Immunization Administration Dates Next Due Hep A, Adult 09/23/2021 Influenza, injectable, quadr ivalent, preservative free 07/15/2023,09/24/2022,12/19/2021 [employer] COVID-19 Vaccine (Blue Cap) 18+ 05/14/20 21 [employer] COVID-19 Vac cine (Lopez Cap) 12+ years [...] series) 03/23/2022 09/23/2021 [facility]-Depression Screening 10/21/2024 10/21/2023 XSM-UGDNP-49 Vaccine (3 - season) 2025 12/19/2021, 05/14/2021 [...] Final Res ult [facility] [address] [place] [address] from Last 3 Months or Most Recently Relevant to Health Maintenance Insurance [place] [id number] [facility] MEDICAID Advance Directives * Full Code (Latest Code Status on File) Date Activated Date Inactivated Comments 09/19/2021 12:42 AM 10/29/2021 3:40 PM Question Answer Comments Patient has decision-making capacity? Yes Care Teams Disease Control Inspector Relationship Specialty Start Date End Date Cholo Arreola DO [address] [facility] [address] [place] [address] PCP - General 02/24/24
--- OUTSIDE RECORDS SUMMARY | 2025-08-11 07:47 | XMS_ITS ---
Author Organization [facility] Address [address] [place], [place] [address] Care Team Providers Care Security Incident Response Specialist Name Role Phone Cholo Arreola DO Primary Care Provider [phone] PrEP Status:Active (Active) Start date:12/19/2021 Enrollment date:12/19/2021 Continued Care and Services Coordination
--- OUTSIDE RECORDS SUMMARY | 2025-08-11 07:47 | XMS_ITS | Encounter Summary ---
Author Organization Healthcare Address [address] [id number] Care Team Providers Care Sports Coordinator Name Role Phone Chris Sandra MD Primary Care Provider [phone] Cholo Arreola DO Primary Care Provider [phone] Encounter Details Date Type Department Care Team ([facility] st Contact Info) Description 05/30/2022 Orders Only External Location [address] [place] [address] Joshua Bernard MD [address] [place] [address] Social History Tobacco Use Types Packs/Day Years [...] documented as of this encounter Care Teams Sports Coordinator Relationship Specialty Start Date End Date Chris Sandra MD [address] [facility] [place] [address] PCP - General 03/22/21 02/23/24 Cholo Arreola DO [facility] [facility] [address] [place] [address] PCP - General 02/24/24 documented as of this encounter
--- OUTSIDE RECORDS SUMMARY | 2025-08-11 07:47 | XMS_ITS | Referral Summary ---
Author Organization [employer] ([place]) Address [address] [place] [address] Care Team Providers Care Dye Feeder Name Role Phone Unavailable Primary Care Provider Unavailabl e Encounters Date Type Department Care Team Description 08/03/2025 Telephone [facility] [address] [facility] [address] [place] [address] Arian Hargrove MD Appointment (08/03/25 9:39- Spoke to pt about scheduling referral, she wants me to call her back in 20 min . ) 08/03/2025 Outside Orders [facility]rology [facility] [address] [facility] [address] [place] [address] [facility] Recurrent UTI (Primary Dx) from Last [...] Description 08/25/2025 3:30 PM EDT [facility] [address] [facility] [address] [place] [address] Colby Caro MD [address] [facility] [address] [place] [id number] Insurance [employer] [facility]
--- OUTSIDE RECORDS SUMMARY | 2025-08-11 07:47 | XMS_ITS | Clinical Summary ---
Author Organization [facility] Address [address] [place] [address] Care Team Providers Care Atmospheric Chemist Name Role Phone Pcp, No Primary Care [...] therelease of HIV test results or diagnoses. [id number] Social History Tobacco Use Types Packs/Day [...] file Insurance [address] [place] [id number] [facility] Care Teams Atmospheric Chemist Relationship Specialty Start Date End Date Pcp, No No Address PCP - General Pediatrics 02/06/18
--- NOTE | 2025-08-11 08:00 | US_ITS ---
FINAL REPORT CLINICAL HISTORY: decreased pulses in left foot, mottling, Hx Hip replacement Left knee replacement FINDINGS: ANKLE-BRACHIAL PRESSURE INDICES Pressure indices are as follows: RIGHT LOWER EXTREMITY: Ankle-brachial pressure index: 1.14 Comments: Normal LEFT LOWER EXTREMITY: Ankle-brachial pressure index: 1.13 Comments: Normal IMPRESSION: No evidence of significant obstructive peripheral vascular disease of the lower extremities Reviewed, Interpreted and Dictated by Honorio Hernandez MD Transcribed by Gail Roldan Authenticated and . [facility]
== END 2025-08-11 23:59 | disposition home or self-care (01) ==
LOC: RT 07:46
PROVIDERS: PCP Nurse Practitioner Family; Visit Provider Nurse Practitioner Family
DX: R90.89 Other abnormal findings on diagnostic imaging of central nervous system (principal); R60.0 Localized edema; M79.661 Pain in right lower leg; M79.89 Other specified soft tissue disorders; M79.662 Pain in left lower leg; R23.1 Pallor; N39.0 Urinary tract infection, site not specified; L81.9 Disorder of pigmentation, unspecified; D69.2 Other nonthrombocytopenic purpura
CPT/HCPCS: 93923